=== PATIENT | male | born 1980 | race Caucasian/White ===

== ENCOUNTER 2019-05-08 20:47 | Inpatient (IN) | payer MEDICAID, SELFPAY ==
[2019-05-08] VITALS (12 sets, daily range): BP systolic 134–161; BP diastolic 73–87; PULSE 82–105; RESP 4–23; TEMP 36.9–37; O2SAT 74–98
--- NOTE | 2019-05-08 20:56 | ED.GENADUL_ITS ---
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 Denies chest pain, feveres, recent travel rashes. He states he just feels short of breath at times and also feels generally weak. He is noted on triage to have o2 saturation of 74%, has swollen legs and on lung exam has diffuse wheezing. Will obtain blood work, ekg, give duoneb and steroids and obtain CTA of his chest to eval for PE vs pna ct shows no acute abnormalities and labs show carbon dioxide of 41 and h/h elevated. He is still hypoxic, hd stable. He now has more wheezing in bilateral lung nuno. Given his contnued hypoxia will admit Differential Diagnosis Differential Diagnosis: PE, pna, copd Imaging Data Radiologic Study: Attestation: I personally reviewed and interpreted this imaging study as follows: Imaging: CT Scan Radiologist's impression: IMPRESSION: Unremarkable chest CT. No pulmonary embolism. Lab Data Lab results reviewed: Yes I reviewed the patient's lab results. ECG Data Attestation: I personally reviewed and interpreted this ECG (s) as follows: Prior ECG tracings: not available for review Interpretation: sinus rhythm, rate of 85 pr 112 qtc 409 HPI General Mode of arrival: ambulatory . Date/Time Provider Initiated Documentation: 05/08/19 20:49 . Limitations to Documentation: no limitations . Information obtained by: patient . History of Present Illness 39 year old M presents to the emergency department with the chief complaint of I don't feel well, described as moderate, and it has been constant. No relieving factors improve symptom(s), No exacerbating factors reported . Patient did receive the following treatments prior to arrival, none Related Data Home Medications Medication Instructions Recorded Confirmed ibuprofen 400 mg PO TID tab-cap 10/13/15 05/08/19 acetaminophen [Tylenol] 325 mg PO Q4H PRN tab-cap 09/26/16 05/08/19 Allergies Allergy/AdvReac Type Severity Reaction Status Date / Time No Known Allergies Allergy Unverified 05/08/19 21:26 Review of Systems All systems reviewed & are unremarkable except as noted in HPI and below Constitutional Constitutional: Denies chills and Denies fever(s) Cardiovascular Cardiovascular: Denies chest pain Respiratory Respiratory: Denies cough Gastrointestinal Gastrointestinal: Denies abdominal pain, Denies nausea and Denies vomiting Musculoskeletal Musculoskeletal: Denies joint swelling Allergic/Immunologic Allergic/Immunologic: Denies urticaria [facility] Social History Smoking/Tobacco Use Status: Current every day Tobacco Type: cigarettes Alcohol Intake: current Alcohol Intake frequency: holidays/special occasions only Alcohol type: beer Drug use: Occasionally Substance use type: marijuana Details: last smoked marijuana 2 weeks ago. 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 He did not complete high school. He has 2 daughters who live with their mother; ages 8 and 10. Exam Const General: no acute distress Orientation: alert HENMT Head: normal to inspection Ears: external ears normal General nose exam: external nose normal Mouth: moist mucous membranes Eyes General: appearance normal, both eyes and all related structures Neck Neck: normal visual inspection Resp Effort & Inspection: normal respiratory effort and able to speak in complete sentences Cardio Rate: regular rate Skin General skin exam: no rashes or lesions noted Neuro General: alert and oriented x3 Extrem General: normal to inspection Psych Mental Status: mental status grossly normal
[2019-05-08] MEDS: Albuterol/Ipratropium 3 ML UPD VIAL UPD ×2 (21:00→22:54)
[2019-05-08] MEDS: methylPREDNISolone SUCC 125 MG VIAL IVP (21:10)
[2019-05-08] MEDS: Omnipaque 350 MG/ML 100 ML BTL IJ (21:18)
--- NOTE | 2019-05-08 21:31 | DI.CT_ITS ---
EXAM: CT CHEST PE CTA CLINICAL HISTORY: hypoxia, ?PE. TECHNIQUE: Imaging Protocol: Axial CT angiography was performed with multi-slice acquisition and mu lti-planar and/or 3D reconstructions. CONTRAST MATERIAL: Intravenous: Omnipaque 350 Contrast volume:100 mL contrast route:IV - Oral:No COMPARISON: No exams were available for comparison FINDINGS: Pulmonary Arteries: No evidence of filling defect to suggest pulmonary emboli. Tracheobronchial tree: Patent where visualized. Mediastinum and Marina: No dominant adenopathy or fluid collection. Pulmonary parenchyma: No consolidation or dominant measurable mass. No architectural distortion. Pleura: No effusion or pneumothorax. Heart/Aorta: There is no evidence of thoracic aortic dissection or aneurysm. The heart is not dilate d. No coronary artery calcifications are seen. No evidence of right heart strain. No pericardial eff usion. Upper abdomen: Unremarkable. Bones: Degenerative changes are present. IMPRESSION: No evidence of pulmonary embolism, thoracic aortic dissection or aneurysm. DATA REPOSITORY: All CT scans at this facility are submitted to the National Radiology Data Registry (NRDR) Dose Index Registry (DIR) with the [employer] (ACR). RADIATION OPTIMIZATION: All CT scans at this facility use at least one of these dose optimization te chniques: automated exposure control; mA and/or kV adjustment per patient size (includes targeted exa ms where dose is matched to clinical indication); or iterative reconstruction.
[2019-05-08 21:35] LABS: INR 1.2 (0.9-1.1); PTT Activated 26.1 sec (21.0-31.4); Prothrombin Time 11.6 sec (9.3-11.0)
[2019-05-08 21:39] LABS: Abs Immature Grans 0.03 k/cumm (0.0-0.09); Absolute Basophil Count 0.04 k/cumm (0.0-0.2); Absolute Eosinophil Count 0.16 k/cumm (0.0-0.7); Absolute Lymphocyte Count 1.34 k/cumm (1.2-3.4); Absolute Monocyte Count 0.83 k/cumm (0.11-0.7); Absolute Neutrophil Count 6.33 k/cumm (1.2-6.7); Basophils % 0.5; Eosinophils % 1.8; Immature Grans % 0.3; Lymphocytes % 15.3; Mean Corpuscular Hemoglobin 29.3 pg (27.0-33.0); Mean Corpuscular Volume 94.7 fL (80-95); Mean Platelet Volume 12.4 fL (8.0-11.0); Monocytes % 9.5; Neutrophils % 72.6; Platelet Count 166 x1000/uL (130-400); RBC 6.63 m/cumm (4.50-6.00); RBC Distribution Width 18.7 % (11.8-14.1); White Blood Cell Count 8.73 k/cumm (4.4-10.8)
[2019-05-08 21:43] LABS: ALT 173 U/L (16-63); AST 42 U/L (15-37); Albumin 3.2 g/dL (3.4-5.0); Alkaline Phosphatase 85 U/L (46-116); BUN 13 mg/dL (7-18); Bilirubin, Total 0.6 mg/dL (0.2-1.0); Calcium 8.3 mg/dL (8.5-10.1); Chloride 100 mmol/L (98-107); Glucose 105 mg/dL (74-106); Magnesium 1.9 mg/dL (1.8-2.4); NT-proBNP 263 pg/mL (<300); Potassium 4.4 mmol/L (3.5-5.1); Sodium 142 mmol/L (136-145); Total Protein 6.9 g/dL (6.4-8.2); Troponin I < 0.05 ng/Ml (<0.06)
[2019-05-08 21:44] LABS: CREATININE < 0.05 mg/dL (0.70-1.30)
--- NOTE | 2019-05-08 21:50 | DI.VRAD_ITS ---
PROCEDURE INFORMATION: Exam: CT Angiography Chest With Contrast Exam date and time: 05/08/2019 9:26 PM Age: 39 years old Clinical history: Patient HX: Hypoxia, ? pe. HX - muscular dystrophy per PT TECHNIQUE: Imaging protocol: Computed tomographic angiography of the chest with intravenous contrast. 3D rendering: MIP reconstructed images were created and reviewed. Radiation optimization: All CT scans at this facility use at least one of these dose optimization techniques: automated exposure control; mA and/or kV adjustment per patient size (includes targeted exams where dose is matched to clinical indication); or iterative reconstruction. Contrast material: OMNI 350; Contrast volume: 100 ml; Contrast route: IV; COMPARISON: No relevant prior studies available. FINDINGS: Pulmonary arteries: No pulmonary embolism. Aorta: Unremarkable. No aortic aneurysm. No aortic dissection. Lungs: Punctate calcified nodule in the low left lower lobe consistent with prior granulomatous disease. Pleural space: No pneumothorax. No pleural effusion. Mild left pleural thickening. Heart: Unremarkable. No cardiomegaly. No pericardial effusion. Lymph nodes: Unremarkable. No enlarged lymph nodes. Bones/joints: Unremarkable. No acute fracture. Soft tissues: Unremarkable. IMPRESSION: Unremarkable chest CT. No pulmonary embolism. Dictated and Authenticated by: Vinicio Anderson MD. Ordering:RADHA Garvin MD
[2019-05-08 22:00] LABS: HGB 19.4 g/dL (13.5-17.5)
[2019-05-08 22:03] LABS: HCT 65.2 % (40.0-50.0)
[2019-05-08 22:04] LABS: Mean Corp. HGB Concentration 29.8 g/dL (32.0-36.0)
[2019-05-08] MEDS: Albuterol 2.5 MG/3 ML INH SOLN VIAL (22:05)
[2019-05-08 22:10] LABS: FREE T4 1.02 ng/dL (0.76-1.46)
[2019-05-08 22:23] LABS: Polychromasia Present
[2019-05-08] MEDS: Normal Saline 1,000 ML 1000 ML IV (22:54)
--- NOTE | 2019-05-08 23:04 | W.PM.HP.N ---
Date of service: 05/08/19 Time of Service: 23:05 Assessment and Plan Assessment and plan (1) Exacerbation of asthma: Start date: 05/08/19 Status: Acute Assessment and plan: This is a 39-year-old gentleman who has a history of smoking and increasing dyspnea presented to the ED with bronchospasm and hypoxemia.He is chronically not on respiratory treatment. He has responded to nebulizer treatments but his hypoxemia persist requiring O2 supplementation. The patient will be observed on telemetry with continue oxygen supplementation and further evaluation by respiratory therapy with an ABG to be performed this morning. He will continue nebulizer treatments as needed. If his hypoxemia persist we need to consider positive pressure treatment acutely and long-term for probable sleep apnea. He does need to establish locally with a primary care physician for further work-up of this respiratory pathology with what appears to be chronic respiratory failure with an elevated TCO2. Qualifiers: Asthma persistence: persistent Asthma severity: severe Qualified Code(s): J45.51 - Severe persistent asthma with (acute) exacerbation (2) Hypoxemia: Start date: 05/08/19 Status: Acute Assessment and plan: O2 supplementation with consideration of positive pressure treatment for his hypoxemia which is persisting. He is on observation but may need to be admitted for further evaluation if this persist. There is no evidence of pneumonia or PE by imaging in the ED. Patient does have a history of muscular dystrophy and is need to be further reviewed in the outpatient records with the patient seeing neurology yearly. (3) Tobacco dependence: Status: Chronic Assessment and plan: This will exacerbate the patient's respiratory status and he needs to consider cessation. NicoDerm will be ordered during the hospital stay. 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 This can be done as an outpatient. It also can be done acutely if the patient's cardiovascular status becomes unstable. 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 The patient has very short sleep hours because of his job and never feels rested after sleeping. He presented to the emergency room because of not feeling well for months and was prompted by his to be evaluated. He was found to be severely hypoxic on room air and this did not respond well to nebulizers though he did have audible wheezing upon admission to the ED. He was observed overnight on telemetry with adjustment of oxygen therapy and early in the morning patient had a severe apneic spell witnessed by the nurses and was difficult to awaken with tactile stimuli with severe hypoxemia and his oxygen off during the episode. He did awaken and his pulse oximeter improved on 4 L/min oxygen mask. His telemetry did not reveal any dysrhythmia during the episode. He has been aware for years that he most likely has sleep apnea. Review of Systems Narrative: 13 point review of systems otherwise unrevealing or stable. Patient does have muscle weakness especially over his right side with occasional foot drop noticed on the right as well. 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 He did not complete high school. He has 2 daughters who live with their mother; ages 8 and 10. Meds Home Medications and Allergies Home Medications Medication Instructions Recorded Confirmed Type ibuprofen 400 mg PO TID tab-cap 10/13/15 05/08/19 History acetaminophen [Tylenol] 325 mg PO Q4H PRN tab-cap 09/26/16 05/08/19 History Allergies Allergy/AdvReac Type Severity Reaction Status Date / Time No Known Allergies Allergy Unverified 05/08/19 21:26 Exam Narrative Exam Narrative: General: Patient is morbidly obese, flattened affect with good eye contact but little variation, no acute distress and alert and oriented x3. HEENT: Normocephalic with patient having a full lindsay and normal hair distribution over his scalp. Face is atraumatic with some puffiness but no pitting edema. Eyes normal with pupils equal and reactive to light symmetrically, extraocular movement intact and sclera anicteric. Oropharynx with moist mucosa. Neck: Supple without JVD. Back: Stooped posture with no CVA tenderness. Patient needs assistance to sit up in bed. Lungs: Bronchovesicular sounds diffusely but no focalizing rales or rhonchi. No significant adventitious sounds and no wheezing. Chest: No focal tenderness, breasts are fatty and predominant but symmetrical. No palpable breast tissue. Heart: Regular rate and rhythm with no murmurs gallops appreciated. Abdomen: Obese contour, soft and non-tender to palpation with no palpable hepatosplenomegaly. Bowel sounds positive all quadrants. Genitalia/rectal: Exam deferred. Extremities: No pitting edema, clubbing or cyanosis. Muscle atrophy over the right upper and right lower extremities more than the left with fair range of motion of all joints. Skin: Normal color, warm and dry. Neuro: Decreased motor strength over the right and left lower extreme more than left but overall decrease strength with patient needing assistance to sit up in bed, decreased complaint evaluation officer on the right with slight flexion contracture of the hand. Cranial nerves II through XII are grossly intact. Psych: Depressed mood with flattened affect. Remote and recent memory intact. Results Imaging Imaging Studies: Exam(s) PROCEDURE INFORMATION: Exam: CT Angiography Chest With Contrast Exam date and time: 05/08/2019 9:26 PM Age: 39 years old Clinical history: Patient HX: Hypoxia, ? pe. HX - muscular dystrophy per PT TECHNIQUE: Imaging protocol: Computed tomographic angiography of the chest with intravenous contrast. 3D rendering: MIP reconstructed images were created and reviewed. Radiation optimization: All CT scans at this facility use at least one of these dose optimization techniques: automated exposure control; mA and/or kV adjustment per patient size (includes targeted exams where dose is matched to clinical indication); or iterative reconstruction. Contrast material: OMNI 350; Contrast volume: 100 ml; Contrast route: IV; COMPARISON: No relevant prior studies available. FINDINGS: Pulmonary arteries: No pulmonary embolism. Aorta: Unremarkable. No aortic aneurysm. No aortic dissection. Lungs: Punctate calcified nodule in the low left lower lobe consistent with prior granulomatous disease. Pleural space: No pneumothorax. No pleural effusion. Mild left pleural thickening. Heart: Unremarkable. No cardiomegaly. No pericardial effusion. Lymph nodes: Unremarkable. No enlarged lymph nodes. Bones/joints: Unremarkable. No acute fracture. Soft tissues: Unremarkable. IMPRESSION: Unremarkable chest CT. No pulmonary embolism. Dictated and Authenticated by: Vinicio Anderson MD. Labs Result diagrams: 05/09/19 06:10 05/09/19 06:10 Labs: Laboratory Results - last 24 hr 05/08/19 05/08/19 05/08/19 21:10 21:10 21:10 WBC 8.73 RBC 6.63 H Hgb 19.4 H* Hct 65.2 H* MCV 94.7 MCH 29.3 MCHC 29.8 L RDW 18.7 H Plt Count 166 MPV 12.4 H Immature Gran % 0.3 Neutrophils % 72.6 Lymphocytes % 15.3 Monocytes % 9.5 Eosinophils % 1.8 Basophils % 0.5 Absolute Neutrophils 6.33 Absolute Lymphocytes 1.34 Absolute Monocytes 0.83 H Absolute Eosinophils 0.16 Absolute Basophils 0.04 Differential Comment RBC Morphology See below Polychromasia Present PT 11.6 H INR 1.2 H APTT 26.1 Sodium 142 Potassium 4.4 Chloride 100 Carbon Dioxide 41.0 H Anion Gap 1.0 L BUN 13 Creatinine < 0.05 L Estimated GFR/1.73 m2 >= 60.00 Glucose 105 Calcium 8.3 L Magnesium 1.9 Total Bilirubin 0.6 AST 42 H ALT 173 H Alkaline Phosphatase 85 Troponin I < 0.05 NT-Pro-B Natriuret Pep 263 Total Protein 6.9 Albumin 3.2 L TSH Free T4 05/08/19 21:10 WBC RBC Hgb Hct MCV MCH MCHC RDW Plt Count MPV Immature Gran % Neutrophils % Lymphocytes % Monocytes % Eosinophils % Basophils % Absolute Neutrophils Absolute Lymphocytes Absolute Monocytes Absolute Eosinophils Absolute Basophils Differential Comment RBC Morphology Polychromasia PT INR APTT Sodium Potassium Chloride Carbon Dioxide Anion Gap BUN Creatinine Estimated GFR/1.73 m2 Glucose Calcium Magnesium Total Bilirubin AST ALT Alkaline Phosphatase Troponin I NT-Pro-B Natriuret Pep Total Protein Albumin TSH 5.70 H Free T4 1.02 Last Vital Signs Temp 37.0 C 05/08/19 20:54 Pulse 83 05/08/19 22:54 Resp 18 05/08/19 22:54 BP 134/76 05/08/19 22:30 Pulse Ox 92 L 05/08/19 22:54
[2019-05-09] VITALS (85 sets, daily range): BP systolic 114–156; BP diastolic 60–91; PULSE 67–115; RESP 1–31; TEMP 36.7–37.8; O2SAT 82–100
[2019-05-09] MEDS: Nicotine 21 MG/24 HR PATCH TD ×2 (01:16→16:06)
[2019-05-09] MEDS: Albuterol/Ipratropium 3 ML UPD VIAL UPD ×3 (01:17→12:27)
[2019-05-09 01:31] LABS: HCO3 (Venous) 40 mmol/L (22-28); O2 Sat (Venous) 83 % (70-80); TCO2 (Venous) 34 mmol/L (22-29); pH (Venous) 7.35 (7.32-7.43); pO2 (Venous) 47 mm/Hg (28-44)
[2019-05-09 01:43] LABS: BE (Venous) 14.5 mmol/L (-3-3); pCO2 (Venous) 73 mm/Hg (34-47)
[2019-05-09] MEDS: Normal Saline Flush 10 ML SYR IVP ×3 (06:32→22:11)
[2019-05-09] MEDS: Enoxaparin 40 MG/0.4 ML SYR SC (06:33)
[2019-05-09] MEDS: methylPREDNISolone SUCC 125 MG VIAL IVP (06:59)
[2019-05-09 07:00] LABS: Mean Corpuscular Hemoglobin 29.2 pg (27.0-33.0); Mean Corpuscular Volume 95.1 fL (80-95); Mean Platelet Volume 12.5 fL (8.0-11.0); Platelet Count 160 x1000/uL (130-400); RBC 6.55 m/cumm (4.50-6.00); RBC Distribution Width 18.8 % (11.8-14.1); White Blood Cell Count 8.92 k/cumm (4.4-10.8)
[2019-05-09 07:04] LABS: ALT 172 U/L (16-63); AST 37 U/L (15-37); Albumin 3.2 g/dL (3.4-5.0); Alkaline Phosphatase 75 U/L (46-116); Anion Gap 0.5 mmol/L (3-11); BUN 12 mg/dL (7-18); Bilirubin, Total 0.5 mg/dL (0.2-1.0); CO2 40.5 mmol/L (21.0-32.0); CREATININE 0.81 mg/dL (0.70-1.30); Calcium 8.5 mg/dL (8.5-10.1); Chloride 102 mmol/L (98-107); Glucose 264 mg/dL (74-106); Magnesium 2.1 mg/dL (1.8-2.4); Potassium 4.8 mmol/L (3.5-5.1); Sodium 143 mmol/L (136-145); Total Protein 6.8 g/dL (6.4-8.2)
[2019-05-09 07:30] LABS: HGB 19.1 g/dL (13.5-17.5)
[2019-05-09 07:33] LABS: HCT 63.6 % (40.0-50.0)
[2019-05-09 08:32] LABS: Site Left Radial
[2019-05-09 08:33] LABS: pCO2 105 mmHg (34-47); pO2 75 mmHg (83-108); sO2 89 % (94-98)
[2019-05-09 08:34] LABS: HCO3 41 mmol/L (22-28); tCO2 44 mmol/L (22-29)
--- NOTE | 2019-05-09 09:54 | PHARADMIT ---
Addendum entered by Rosie Jaquez 05/11/19 16:32: Pharmacy Note Subjective PFT, echo and cardiology consult ordered Objective BP-142/100 other VS okay weight-156.1kg(up) h/h-18.7/59.9(up) lactate-3.0(up) Assessment methylprednisolone changed to prednisone one time furosemide dose given Plan trying to organize a trilogy machine to trial overnight possible discharge tomorrow it improving with cardiac monitoring and out pt followup Addendum entered by Serina Cueva 05/10/19 12:44: Pharmacy Note Subjective Improved after bipap overnight Objective VS good, labs oddly not available for viewing, H/H 18.1/57.9, Lactate 2.4 A1c 6.4, FSBS 253, Iron/Ferritin panel is low Most recent blood gas improved Assessment Diabetes consult (new/borderline diagnosis) Novolog scale only at this time IV steroids decreased..making blood sugars elevated Plan watch for IV to oral steroid taper, cardiology consult/echo Micro urine: pending Pt sees for Muscular Dystrophy Original Note: Admission Pharmacy Clinical Review EXACERBATION OF ASTHMA W/HYPOXEMIA Code Status Full Code Current Weight 152 kg Renally Cleared and Narrow Therapeutic Index Meds CrCl~134ml/min QTc Value / Action Taken QTC 409 BP Control, Fever BP 114/71 Afebrile Electrolytes reviewed K+ 4.8 Mag 2.1 DVT Prophylaxis Lovenox 40mg Opiate Usage / Scheduled Bowel Regimen Ordered Plt/SCr for Heparin / Enoxaparin Plt 160 SCr 0.81 INR for Warfarin H/H stable, WBC/Bands H/H 19.1/63.6 WBC 8.92 (IV steroids) Antibiotic appropriateness n/a Cultures and Sensitivities n/a Surgical ABX d/c within 24 hr DM control / Insulin Dosing BG 264 (Novolog scale)....DIET IS NPO Heart Failure (Check EF%) (DAVE's, B-Block, Diuretics) IV to PO Switch steroids Home Meds Reviewed Home Meds Not Ordered Ibuprofen Comments blood gas: PC02 105/PO2 75/O2 Sats 89%/ph 7.2 repeat BG levels later ? Pulmonary Hypertension, will need daytime oxygen, Sleep Apnea Chest CT: negative, no PE, normal Checking Iron levels for abnormal H/H Possible transfer to ICU Hx of Muscular Dystrophy
--- NOTE | 2019-05-09 10:03 | W.PM.PROGNOT ---
Date of Service Date of service: 05/09/19 Time of Service: 10:03 Assessment and Plan Assessment and plan (1) Acute on chronic respiratory failure with hypoxia and hypercapnia: Status: Acute Assessment and plan: This is likely multifactorial. Based on patient's appearance/apneic behavior, sleep apnea and OHS are certainly on differential, as could be contribution of his muscular dystrophy (between 1 and 10 % of people with his type of muscular dystrophy have restrictive lung disease and require positive pressure support overnight). He is a smoker, and underlying obstructive disease such as COPD/acute bronchitis could also be happening. pH is worse on the ABG this morning than VBG overnight. Transfer to ICU, repeating ABG now. Will adjust BiPAP settings accordingly - but low threshold to intubate if ABG is worse. Discussed with girlfriend at bedside that parents should be informed of him being in the hospital - he might end up getting intubated. Continue IV steroids, nebs. Check UDS. (2) Acute respiratory acidosis: Status: Acute Assessment and plan: as above (3) CO2 narcosis: Status: Acute Assessment and plan: As above (4) Secondary polycythemia: Status: Chronic Assessment and plan: Likely due to smoking, unaddress chronic hypoxia. Pulmonary hypertension is something that I would expect at this point. Will check iron studies to ensure no hemochromatosis, but will also check echo. (5) Fascioscapulohumeral muscular dystrophy: Status: Chronic Assessment and plan: As above - up to 10% of patients do end up having restrictive lung disease. Otherwise, it had been stable, as per Dr Lam's note earlier this year. Will eventually need PFT's. (6) Steroid-induced hyperglycemia: Status: Acute Assessment and plan: Check A1C. Cover with SSI. (7) Obesity, morbid, BMI 40.0-49.9: Status: Chronic Assessment and plan: Very high clinical suspicion for JOHANNE/OHS. Would benefit from weight loss. (8) Tobacco dependence: Status: Acute Assessment and plan: Provide nicotine replacement (9) Subclinical hypothyroidism: Status: Acute Assessment and plan: Will need outpatient follow up - no inidication for initiation of treatment at this time. (10) DVT prophylaxis: Status: Acute Assessment and plan: Lovenox SC (11) Discharge planning issues: Status: Acute Assessment and plan: Transfer to ICU Total Critical Care Time 45 minutes Subjective Subjective Interval history since last seen: I took over care for Mr Priya from Dr Franks. Patient's ABG results revealed respiratory acidosis with pH of 7.20, pCO2 of 105, pO2 of 89% on 4L of O2 by oxymask. He was immediately placed on BiPAP once those results were known and fell asleep quickly. Patient seen an examined. He is deeply asleep, arousable. Even while on BiPAP he is having noticeable apneic episodes. He is not able to cooperate with review of systems due to his mental status. Per girlfriend, he had just woken up a little earlier and tried to take the BiPAP mask off. He also had been verbalizing that he just wants to go home to his girlfriend. Exam Narrative Exam Narrative: General: Obese male, deeply asleep on BiPAP, having apneic episodes HEENT: Eyes closed, MMM Heart: RRR, mildly tachycardic, no m/r/g Lungs: Diminished breath sounds B Abdomen: soft, obese Extremities: no e/c/c BLE's Objective Objective Clinical Data: Abnormal lab results 05/08/19 05/08/19 05/08/19 Range/Units 21:10 21:10 21:10 RBC 6.63 H (4.50-6.00) m/cumm Hgb 19.4 H* (13.5-17.5) g/dL Hct 65.2 H* (40.0-50.0) % MCV (80-95) fL MCHC 29.8 L (32.0-36.0) g/dL RDW 18.7 H (11.8-14.1) % MPV 12.4 H (8.0-11.0) fL Absolute Monocytes 0.83 H (0.11-0.7) k/cumm PT 11.6 H (9.3-11.0) sec INR 1.2 H (0.9-1.1) pCO2 (34-47) mmHg pO2 (83-108) mmHg O2 Saturation (94-98) % ABG pH (7.35-7.45) ABG HCO3 (22-28) mmol/L ABG Total CO2 (22-29) mmol/L ABG Base Excess (-3-3) mmol/L VBG pCO2 (34-47) mm/Hg VBG pO2 (28-44) mm/Hg VBG HCO3 (22-28) mmol/L VBG Total CO2 (22-29) mmol/L VBG O2 Saturation (70-80) % VBG Base Excess (-3-3) mmol/L Carbon Dioxide 41.0 H (21.0-32.0) mmol/L Anion Gap 1.0 L (3-11) mmol/L Creatinine < 0.05 L (0.70-1.30) mg/dL Glucose (74-106) mg/dL Calcium 8.3 L (8.5-10.1) mg/dL AST 42 H (15-37) U/L ALT 173 H (16-63) U/L Albumin 3.2 L (3.4-5.0) g/dL TSH (0.36-3.74) uIU/mL 05/08/19 05/09/19 05/09/19 Range/Units 21:10 01:20 06:10 RBC (4.50-6.00) m/cumm Hgb (13.5-17.5) g/dL Hct (40.0-50.0) % MCV (80-95) fL MCHC (32.0-36.0) g/dL RDW (11.8-14.1) % MPV (8.0-11.0) fL Absolute Monocytes (0.11-0.7) k/cumm PT (9.3-11.0) sec INR (0.9-1.1) pCO2 (34-47) mmHg pO2 (83-108) mmHg O2 Saturation (94-98) % ABG pH (7.35-7.45) ABG HCO3 (22-28) mmol/L ABG Total CO2 (22-29) mmol/L ABG Base Excess (-3-3) mmol/L VBG pCO2 73 H (34-47) mm/Hg VBG pO2 47 H (28-44) mm/Hg VBG HCO3 40 H (22-28) mmol/L VBG Total CO2 34 H (22-29) mmol/L VBG O2 Saturation 83 H (70-80) % VBG Base Excess 14.5 H (-3-3) mmol/L Carbon Dioxide 40.5 H (21.0-32.0) mmol/L Anion Gap 0.5 L (3-11) mmol/L Creatinine (0.70-1.30) mg/dL Glucose 264 H D (74-106) mg/dL Calcium (8.5-10.1) mg/dL AST (15-37) U/L ALT 172 H (16-63) U/L Albumin 3.2 L (3.4-5.0) g/dL TSH 5.70 H (0.36-3.74) uIU/mL 05/09/19 05/09/19 Range/Units 06:10 08:15 RBC 6.55 H (4.50-6.00) m/cumm Hgb 19.1 H* (13.5-17.5) g/dL Hct 63.6 H* (40.0-50.0) % MCV 95.1 H (80-95) fL MCHC 30.0 L (32.0-36.0) g/dL RDW 18.8 H (11.8-14.1) % MPV 12.5 H (8.0-11.0) fL Absolute Monocytes (0.11-0.7) k/cumm PT (9.3-11.0) sec INR (0.9-1.1) pCO2 105 H* (34-47) mmHg pO2 75 L (83-108) mmHg O2 Saturation 89 L (94-98) % ABG pH 7.20 L (7.35-7.45) ABG HCO3 41 H (22-28) mmol/L ABG Total CO2 44 H (22-29) mmol/L ABG Base Excess 13.0 H (-3-3) mmol/L VBG pCO2 (34-47) mm/Hg VBG pO2 (28-44) mm/Hg VBG HCO3 (22-28) mmol/L VBG Total CO2 (22-29) mmol/L VBG O2 Saturation (70-80) % VBG Base Excess (-3-3) mmol/L Carbon Dioxide (21.0-32.0) mmol/L Anion Gap (3-11) mmol/L Creatinine (0.70-1.30) mg/dL Glucose (74-106) mg/dL Calcium (8.5-10.1) mg/dL AST (15-37) U/L ALT (16-63) U/L Albumin (3.4-5.0) g/dL TSH (0.36-3.74) uIU/mL Vital Signs Temperature 37.1 C 05/09/19 07:00 Temperature Source Tympanic 05/09/19 07:00 Pulse 86 05/09/19 09:12 Pulse Rhythm Regular 05/09/19 00:04 Respiratory Rate 10 L 05/09/19 09:12 Respiratory Effort 05/09/19 00:04 Respiratory Depth Normal 05/09/19 00:04 Respiratory Pattern Normal 05/09/19 00:04 Blood Pressure 114/71 05/09/19 07:00 Blood Pressure Position Sitting 05/08/19 20:54 Pulse Oximetry 90 L 05/09/19 09:12 Oxygen Delivery Method OxyMask 05/09/19 07:00 Oxygen Flow Rate 4 05/09/19 07:00 Fraction of Inspired Oxygen (FIO2) 40 05/09/19 09:12 Pain Level 0 05/09/19 07:00 Comment 05/09/19 06:35 Intake & Output 05/08/19 05/08/19 05/09/19 11:59 23:59 11:59 Intake Total 1000 / 1000 1200 / 1200 Balance 1000 / 1000 1200 / 1200 Weight 136.078 kg 152 kg Intake: IV 1000 / 1000 Oral 1200 / 1200 Other: Urine Color Yellow Urine Appearance Clear Comment Pt used the toilet to pick Voiding Methods Toilet Laboratory Results WBC 8.92 k/cumm (4.4-10.8) 05/09/19 06:10 RBC 6.55 m/cumm (4.50-6.00) H 05/09/19 06:10 Hgb 19.1 g/dL (13.5-17.5) H* 05/09/19 06:10 Hct 63.6 % (40.0-50.0) H* 05/09/19 06:10 MCV 95.1 fL (80-95) H 05/09/19 06:10 MCH 29.2 pg (27.0-33.0) 05/09/19 06:10 MCHC 30.0 g/dL (32.0-36.0) L 05/09/19 06:10 RDW 18.8 % (11.8-14.1) H 05/09/19 06:10 Plt Count 160 x1000/uL (130-400) 05/09/19 06:10 MPV 12.5 fL (8.0-11.0) H 05/09/19 06:10 Immature Gran % 0.3 05/08/19 21:10 Neutrophils % 72.6 05/08/19 21:10 Lymphocytes % 15.3 05/08/19 21:10 Monocytes % 9.5 05/08/19 21:10 Eosinophils % 1.8 05/08/19 21:10 Basophils % 0.5 05/08/19 21:10 Absolute Neutrophils 6.33 k/cumm (1.2-6.7) 05/08/19 21:10 Absolute Lymphocytes 1.34 k/cumm (1.2-3.4) 05/08/19 21:10 Absolute Monocytes 0.83 k/cumm (0.11-0.7) H 05/08/19 21:10 Absolute Eosinophils 0.16 k/cumm (0.0-0.7) 05/08/19 21:10 Absolute Basophils 0.04 k/cumm (0.0-0.2) 05/08/19 21:10 Differential Comment 05/08/19 21:10 RBC Morphology See below 05/08/19 21:10 Polychromasia Present 05/08/19 21:10 PT 11.6 sec (9.3-11.0) H 05/08/19 21:10 INR 1.2 (0.9-1.1) H 05/08/19 21:10 APTT 26.1 sec (21.0-31.4) 05/08/19 21:10 Sample Site Left radial 05/09/19 08:15 pCO2 105 mmHg (34-47) H* 05/09/19 08:15 pO2 75 mmHg (83-108) L 05/09/19 08:15 O2 Saturation 89 % (94-98) L 05/09/19 08:15 ABG pH 7.20 (7.35-7.45) L 05/09/19 08:15 ABG HCO3 41 mmol/L (22-28) H 05/09/19 08:15 ABG Total CO2 44 mmol/L (22-29) H 05/09/19 08:15 ABG Base Excess 13.0 mmol/L (-3-3) H 05/09/19 08:15 VBG pH 7.35 (7.32-7.43) 05/09/19 01:20 VBG pCO2 73 mm/Hg (34-47) H 05/09/19 01:20 VBG pO2 47 mm/Hg (28-44) H 05/09/19 01:20 VBG HCO3 40 mmol/L (22-28) H 05/09/19 01:20 VBG Total CO2 34 mmol/L (22-29) H 05/09/19 01:20 VBG O2 Saturation 83 % (70-80) H 05/09/19 01:20 VBG Base Excess 14.5 mmol/L (-3-3) H 05/09/19 01:20 Oxygen Liter Flow 4 lpm oxy mask L 05/09/19 08:15 Sodium 143 mmol/L (136-145) 05/09/19 06:10 Potassium 4.8 mmol/L (3.5-5.1) 05/09/19 06:10 Chloride 102 mmol/L (98-107) 05/09/19 06:10 Carbon Dioxide 40.5 mmol/L (21.0-32.0) H 05/09/19 06:10 Anion Gap 0.5 mmol/L (3-11) L 05/09/19 06:10 BUN 12 mg/dL (7-18) 05/09/19 06:10 Creatinine 0.81 mg/dL (0.70-1.30) D 05/09/19 06:10 Estimated GFR/1.73 m2 >= 60.00 (mL/min/1.73m2) 05/09/19 06:10 Glucose 264 mg/dL (74-106) H D 05/09/19 06:10 Calcium 8.5 mg/dL (8.5-10.1) 05/09/19 06:10 Magnesium 2.1 mg/dL (1.8-2.4) 05/09/19 06:10 Total Bilirubin 0.5 mg/dL (0.2-1.0) 05/09/19 06:10 AST 37 U/L (15-37) 05/09/19 06:10 ALT 172 U/L (16-63) H 05/09/19 06:10 Alkaline Phosphatase 75 U/L (46-116) 05/09/19 06:10 Troponin I < 0.05 ng/Ml (<0.06) 05/08/19 21:10 NT-Pro-B Natriuret Pep 263 pg/mL (<300) 05/08/19 21:10 Total Protein 6.8 g/dL (6.4-8.2) 05/09/19 06:10 Albumin 3.2 g/dL (3.4-5.0) L 05/09/19 06:10 TSH 5.70 uIU/mL (0.36-3.74) H 05/08/19 21:10 Free T4 1.02 ng/dL (0.76-1.46) 05/08/19 21:10
[2019-05-09 10:29] LABS: FIO2 45% %; Site Left Radial; pH 7.24 (7.35-7.45)
[2019-05-09 10:30] LABS: HCO3 43 mmol/L (22-28); pCO2 99 mmHg (34-47); pO2 63 mmHg (83-108); sO2 85 % (94-98); tCO2 46 mmol/L (22-29)
--- NOTE | 2019-05-09 10:33 | INITIAL_ITS ---
- If Service Date Differs Date of service: 05/09/19 Time of Service: 10:33 Care Management Initial Assess REASON FOR HOSPITALIZATION:: Exacerbation asthma with hypoxemia. PAST MEDICAL HISTORY/PAST SURGICAL HISTORY:: Medical History: Fascioscapulohumeral muscular dystrophy (acute 10/25/15), subclinical hypothyroidism (acute 05/09/19), DVT prophylaxis (acute 05/09/19), obesity, steroid-induced hyperglycemia (acute 05/09/19), CO2 narcosis (acute 05/09/19), polycythemia secondary to smoking, tobacco dependence, hypoxemia (acute 05/09/19), and exacerbation of asthma (acute 05/09/19). No surgical history of record. PREVIOUS FUNCTIONAL STATUS/SOCIAL/FAMILY SUPPORTS:: Dante lives in his own home in [place] with his girlfriend, Kenzie. Both he and Kenzie each have two children. Dante's daughters live with their mother but spend weekends and school vacations with him. 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 During his down time, Dante enjoys hunting, fishing and spending time at the family [employer] Dante is independent at baseline. He names his parents, Kenzie, her parents, and several friends as supports. CURRENT FUNCTIONAL STATUS:: Dante is lying in bed when CM comes to meet with him. He is on oxygen. His girlfriend, Kenzie, is present in the room. Dante openly shares that he has neglected his health for many years and has instead been focused on working and supporting his family. He states with tears in his eyes I don't want to at 39. I want to live long enough to see my grandkids. He goes on to say that he's known for a while that he needs to take better care of himself, but has put it off until now. ADVANCE DIRECTIVES:: None on file. Has patient been provided with information about the portal?: No Did the patient sign up for the portal?: No CODE STATUS:: Full Code INSURANCE COVERAGE / FINANCIAL ISSUES:: Medicaid. CURRENT HOME/COMMUNITY SERVICES/EQUIPMENT:: None. PRIMARY CARE PHYSICIAN:: TARYN Whitley ([facility]) POTENTIAL DISCHARGE NEEDS:: Follow up with PCP and discharge plan of care. PATIENT/FAMILY EDUCATION NEEDS:: Review discharge plan, limitations, follow up plan, including Ask Me Three and self-management. ANTICIPATED BARRIERS TO DISCHARGE:: None. TRANSPORTATION:: Dante's girlfriend, Kenzie, will transport him home via private vehicle when ready. PLAN:: Dante will be discharged home when medically cleared by provider. Patient is currently on Bipap. Anticipate need for additional respiratory support at time of discharge. CM will continue to monitor for needs.
--- NOTE | 2019-05-09 10:43 | NUR.NOTE ---
Nursing Note: Patient s ABG was critical with co2 105 and ph 7.2 patient was started on bi pap pressure 5/20 fio2 of 45. patient was having periods of apnea one was a 20 second pause. patient was ordered to go to the ICU. report barbraen to EDUARDO Harper at 945. transfer done at 10
[2019-05-09 11:14] LABS: Lactate 2.1 mmol/L (0.6-1.4)
[2019-05-09 11:15] LABS: Bilirubin Negative (Negative); Blood Trace-intact (Negative); Clarity Clear (Clear); Glucose 100 mg/dL (Negative); Ketones Negative (Negative); Leukocyte Esterase Negative (Negative); Nitrite Negative (Negative); Specific Gravity 1.025 (1.005-1.025); Urobilinogen 0.2 EU/dL (Up TO 0.2)
[2019-05-09 11:25] LABS: Bacteria Few HPF (Negative); C & S Indicated? Yes; Casts Negative LPF (Negative); Crystals Negative HPF (Negative); Epithelial Cells Negative HPF (Negative); Mucus Moderate (Negative)
[2019-05-09] MEDS: Insulin Aspart 300 UNITS/3 ML PEN SC ×2 (11:38→22:13)
[2019-05-09 11:47] LABS: Procalcitonin 0.1 ng/mL
[2019-05-09 11:48] LABS: HCO3 37 mmol/L (22-28); pCO2 46 mmHg (34-47); pH 7.51 (7.35-7.45); pO2 97 mmHg (83-108); sO2 98 % (94-98); tCO2 30 mmol/L (22-29)
[2019-05-09] MEDS: Pantoprazole 40 MG VIAL IVP (11:48)
[2019-05-09 11:51] LABS: BE 13.6 mmol/L (-3-3); Site Right Radial
[2019-05-09 11:52] LABS: FIO2 40% %
[2019-05-09 14:43] LABS: *AMPHETAMINES SCREEN URINE Negative (Negative); *BARBITURATES SCREEN URINE Negative (Negative); *BENZODIAZEPINES SCREEN URINE Negative (Negative); Cannabinoids THC Negative (Negative); Cocaine Screen,Urine Negative (Negative); METHADONE URINE SCREEN Negative (Negative); OPIATES URINE SCREEN Negative (Negative)
[2019-05-09 14:45] LABS: Tricyclic Antidepressants Negative (Negative)
[2019-05-09] MEDS: methylPREDNISolone SUCC 125 MG VIAL 80 MG IVP ×2 (15:50→22:11)
[2019-05-09 15:58] LABS: Lactate 2.8 mmol/L (0.6-1.4)
[2019-05-09 17:49] LABS: Hemoglobin A1C 6.4 % (4.5-6.2)
[2019-05-09] MEDS: Albuterol 2.5 MG/3 ML INH SOLN VIAL UPD (20:23)
[2019-05-10] VITALS (122 sets, daily range): BP systolic 121–154; BP diastolic 65–95; PULSE 68–124; RESP 1–31; TEMP 36.6–37.5; O2SAT 83–97
[2019-05-10] MEDS: methylPREDNISolone SUCC 125 MG VIAL 80 MG IVP (06:29)
[2019-05-10] MEDS: Normal Saline Flush 10 ML SYR IVP ×2 (06:29→18:17)
[2019-05-10] MEDS: Enoxaparin 40 MG/0.4 ML SYR SC (06:30)
[2019-05-10] MEDS: Albuterol/Ipratropium 3 ML UPD VIAL UPD ×3 (06:30→19:15)
[2019-05-10 06:37] LABS: Abs Immature Grans 0.01 k/cumm (0.0-0.09); Absolute Lymphocyte Count 0.25 k/cumm (1.2-3.4); Absolute Monocyte Count 0.27 k/cumm (0.11-0.7); Absolute Neutrophil Count 9.27 k/cumm (1.2-6.7); Immature Grans % 0.1; Lymphocytes % 2.6; Mean Corp. HGB Concentration 31.3 g/dL (32.0-36.0); Mean Corpuscular Hemoglobin 29.1 pg (27.0-33.0); Mean Corpuscular Volume 92.9 fL (80-95); Mean Platelet Volume 12.3 fL (8.0-11.0); Monocytes % 2.8; Neutrophils % 94.5; Platelet Count 145 x1000/uL (130-400); RBC 6.23 m/cumm (4.50-6.00); RBC Distribution Width 17.4 % (11.8-14.1)
[2019-05-10 07:00] LABS: HCT 57.9 % (40.0-50.0)
[2019-05-10 07:01] LABS: HGB 18.1 g/dL (13.5-17.5)
[2019-05-10 07:59] LABS: Calculated LDL 75 mg/dL; Cholesterol 111 mg/dL (<200); Ferritin 17 ng/mL (26-388); HDL Cholesterol 26 mg/dL (40-60); Triglyceride 54 mg/dL (<150)
[2019-05-10] MEDS: Insulin Aspart 300 UNITS/3 ML PEN SC ×4 (08:11→21:44)
[2019-05-10 08:21] LABS: Iron 16 ug/dL (65-175); Total Iron Binding Capacity 394 ug/dL (250-450); Transferrin Sat 4 % (20-55)
--- NOTE | 2019-05-10 08:21 | PGE_ITS ---
Date of Service Date of service: 05/10/19 Time of Service: 08:21 Assessment and Plan Assessment and plan (1) Acute on chronic respiratory failure with hypoxia and hypercapnia: Status: Acute Assessment and plan: This is likely multifactorial. Sleep apnea and OHS are certainly on differential, but muscular dystrophy can result in hypoventilation as well (between 1 and 10 % of people with his type of muscular dystrophy have restrictive lung disease and require positive pressure support overnight). He is a smoker, and underlying obstructive disease such as COPD/acute bronchitis could also be happening, but this is clinically better. Doing much better after BiPAP therapy yesterday and overnight. Wean steroids. Will attempt to qualify patient for BiPAP vs trilogy. Keep in the ICU (2) V-tach: Status: Acute Assessment and plan: While awake. ?Cardiomyopathy/cardiac conduction abnormalities related to muscular dystrophy. Obtain cardiology consult. Obtain echo. (3) Acute respiratory acidosis: Status: Resolved Assessment and plan: as above (4) CO2 narcosis: Status: Resolved Assessment and plan: As above (5) Secondary polycythemia: Status: Chronic Assessment and plan: Likely due to smoking and unaddressed chronic hypoxia. Pulmonary hypertension is something that I would expect at this point. For echo tomorrow. Evidence of iron deficiency on bloodwork (no hemochromatosis) - but I am worried about boosting erythrocytosis with supplementation of iron. (6) Fascioscapulohumeral muscular dystrophy: Status: Chronic Assessment and plan: As above - up to 10% of patients do end up having restrictive lung disease. Otherwise, it had been stable, as per Dr Lam's note earlier this year. Concern for cardiac conduction issues. For echo/cardiology consult pending. Will need PFT's. (7) Steroid-induced hyperglycemia: Status: Acute Assessment and plan: Check A1C. Cover with SSI. (8) Obesity, morbid, BMI 40.0-49.9: Status: Chronic Assessment and plan: Very high clinical suspicion for JOHANNE/OHS. Would benefit from weight loss. (9) Prediabetes: Status: Acute Assessment and plan: extension educator consulted. I think metformin as well as lifestyle modification would be excellent in this patient on discharge. He is motivated. (10) Tobacco dependence: Status: Chronic Assessment and plan: Provide nicotine replacement. Advised to quit smoking. (11) Subclinical hypothyroidism: Status: Acute Assessment and plan: Will need outpatient follow up - no inidication for initiation of treatment at this time. (12) DVT prophylaxis: Status: Acute Assessment and plan: Lovenox SC (13) Discharge planning issues: Status: Acute Assessment and plan: Keep in ICU Full code Subjective Subjective Interval history since last seen: Spent the night on BiPAP, took it off at around 4:30 am. Had an episode of 28 beats of what looks like polymorphic wide complex tachycardia (I think this is Vtach) shortly after while he was awake - he felt fluttering in his chest. He says this happens to him at home too, sometimes once a week, sometimes once a month, but this is not a new feeling for him. Denies dizziness, chest pain, breathing is better. Denies n/v. Very clear thinking this morning. Requests a shower. BG this am 171. Expresses being motivated about making life style changes. Exam Narrative Exam Narrative: General: Obese male wide awake, walking around ICU on room air, A&Ox3, possible mild increased work of breathing HEENT: EOMI, MMM Heart: RRR, no m/r/g Lungs: better aeration B; very quiet rhonchi heard. Abdomen: soft, obese Extremities: no e/c/c BLE's Objective Objective Clinical Data: Abnormal lab results 05/09/19 05/09/19 05/09/19 Range/Units 06:37 08:15 10:15 RBC (4.50-6.00) m/cumm Hgb (13.5-17.5) g/dL Hct (40.0-50.0) % MCHC (32.0-36.0) g/dL RDW (11.8-14.1) % MPV (8.0-11.0) fL Absolute Neutrophils (1.2-6.7) k/cumm Absolute Lymphocytes (1.2-3.4) k/cumm pCO2 105 H* 99 H* (34-47) mmHg pO2 75 L 63 L (83-108) mmHg O2 Saturation 89 L 85 L (94-98) % ABG pH 7.20 L 7.24 L (7.35-7.45) ABG HCO3 41 H 43 H (22-28) mmol/L ABG Total CO2 44 H 46 H (22-29) mmol/L ABG Base Excess 13.0 H 15.0 H (-3-3) mmol/L Hemoglobin A1c 6.4 H (4.5-6.2) % Lactate (0.6-1.4) mmol/L Ferritin (26-388) ng/mL HDL Cholesterol (40-60) mg/dL Urine Blood (Negative) Urine RBC (0-2) [facility] 05/09/19 05/09/19 05/09/19 Range/Units 10:20 11:30 15:48 RBC (4.50-6.00) m/cumm Hgb (13.5-17.5) g/dL Hct (40.0-50.0) % MCHC (32.0-36.0) g/dL RDW (11.8-14.1) % MPV (8.0-11.0) fL Absolute Neutrophils (1.2-6.7) k/cumm Absolute Lymphocytes (1.2-3.4) k/cumm pCO2 (34-47) mmHg pO2 (83-108) mmHg O2 Saturation (94-98) % ABG pH 7.51 H (7.35-7.45) ABG HCO3 37 H (22-28) mmol/L ABG Total CO2 30 H (22-29) mmol/L ABG Base Excess 13.6 H (-3-3) mmol/L Hemoglobin A1c (4.5-6.2) % Lactate 2.1 H* 2.8 H* (0.6-1.4) mmol/L Ferritin (26-388) ng/mL HDL Cholesterol (40-60) mg/dL Urine Blood (Negative) Urine RBC (0-2) [facility] 05/09/19 05/10/19 05/10/19 Range/Units Unknown 06:00 06:00 RBC 6.23 H (4.50-6.00) m/cumm Hgb 18.1 H (13.5-17.5) g/dL Hct 57.9 H* (40.0-50.0) % MCHC 31.3 L (32.0-36.0) g/dL RDW 17.4 H (11.8-14.1) % MPV 12.3 H (8.0-11.0) fL Absolute Neutrophils 9.27 H (1.2-6.7) k/cumm Absolute Lymphocytes 0.25 L (1.2-3.4) k/cumm pCO2 (34-47) mmHg pO2 (83-108) mmHg O2 Saturation (94-98) % ABG pH (7.35-7.45) ABG HCO3 (22-28) mmol/L ABG Total CO2 (22-29) mmol/L ABG Base Excess (-3-3) mmol/L Hemoglobin A1c (4.5-6.2) % Lactate (0.6-1.4) mmol/L Ferritin 17 L (26-388) ng/mL HDL Cholesterol 26 L (40-60) mg/dL Urine Blood Trace-intact H (Negative) Urine RBC 3-5 H (0-2) HPF Vital Signs Temperature 37.5 C 05/10/19 04:10 Temperature Source Temporal Artery Scan 05/10/19 04:10 Pulse 70 05/10/19 06:01 Pulse Rhythm Regular 05/09/19 07:30 Pulse 85 05/10/19 06:01 Respiratory Rate 21 05/10/19 06:01 Respiratory Effort 05/10/19 04:10 Respiratory Depth Shallow 05/10/19 04:10 Respiratory Pattern Normal 05/10/19 04:10 Blood Pressure 154/82 H 05/10/19 06:01 Blood Pressure Mean 96 05/10/19 06:01 Blood Pressure Position Sitting 05/10/19 04:10 Pulse Oximetry 89 L 05/10/19 06:01 Oxygen Delivery Method Nasal Cannula 05/10/19 05:20 Oxygen Flow Rate 0.5 05/10/19 05:20 Fraction of Inspired Oxygen (FIO2) 23 05/10/19 03:05 Pain Level 0 05/10/19 04:10 Comment 05/09/19 06:35 Intake & Output 05/09/19 05/09/19 05/10/19 11:59 23:59 11:59 Intake Total 1200 / 1500 300 / 1500 200 / 200 Output Total 450 / 2400 1950 / 2400 500 / 500 Balance 750 / -900 -1650 / -900 -300 / -300 Weight 152 kg 153.6 kg Intake: Oral 1200 / 1500 300 / 1500 200 / 200 Output: Urine 450 / 2400 1950 / 2400 500 / 500 Other: Urine Color Dark Stephanie Yellow Dark Stephanie Urine Appearance Clear Clear Clear Comment Pt used the toilet to pick [place] draining clear yellow. [place] draining clear yellow. Stool Characteristics Formed Voiding Methods Toilet Laboratory Results WBC 9.80 k/cumm (4.4-10.8) 05/10/19 06:00 RBC 6.23 m/cumm (4.50-6.00) H 05/10/19 06:00 Hgb 18.1 g/dL (13.5-17.5) H 05/10/19 06:00 Hct 57.9 % (40.0-50.0) H* 05/10/19 06:00 MCV 92.9 fL (80-95) 05/10/19 06:00 MCH 29.1 pg (27.0-33.0) 05/10/19 06:00 MCHC 31.3 g/dL (32.0-36.0) L 05/10/19 06:00 RDW 17.4 % (11.8-14.1) H 05/10/19 06:00 Plt Count 145 x1000/uL (130-400) 05/10/19 06:00 MPV 12.3 fL (8.0-11.0) H 05/10/19 06:00 Immature Gran % 0.1 05/10/19 06:00 Neutrophils % 94.5 05/10/19 06:00 Band Neutrophils % Division Chief 05/10/19 06:00 Lymphocytes % 2.6 05/10/19 06:00 Atypical Lymphs % Division Chief 05/10/19 06:00 Monocytes % 2.8 05/10/19 06:00 Eosinophils % 0.0 05/10/19 06:00 Basophils % 0.0 05/10/19 06:00 Metamyelocytes % Division Chief 05/10/19 06:00 Myelocytes % Division Chief 05/10/19 06:00 Promyelocytes % Division Chief 05/10/19 06:00 Absolute Neutrophils 9.27 k/cumm (1.2-6.7) H 05/10/19 06:00 Absolute Lymphocytes 0.25 k/cumm (1.2-3.4) L 05/10/19 06:00 Absolute Monocytes 0.27 k/cumm (0.11-0.7) 05/10/19 06:00 Absolute Eosinophils 0.00 k/cumm (0.0-0.7) 05/10/19 06:00 Absolute Basophils 0.00 k/cumm (0.0-0.2) 05/10/19 06:00 Nucleated RBCs Division Chief 05/10/19 06:00 Differential Comment Division Chief 05/10/19 06:00 Other Cell Type Division Chief 05/10/19 06:00 RBC Morphology Division Chief 05/10/19 06:00 Polychromasia Division Chief 05/10/19 06:00 Hypochromasia Division Chief 05/10/19 06:00 Poikilocytosis Division Chief 05/10/19 06:00 Basophilic Stippling Division Chief 05/10/19 06:00 Anisocytosis Division Chief 05/10/19 06:00 Microcytosis Division Chief 05/10/19 06:00 Macrocytosis Division Chief 05/10/19 06:00 Spherocytes Division Chief 05/10/19 06:00 Target Cells Division Chief 05/10/19 06:00 Tear Drop Cells Division Chief 05/10/19 06:00 Ovalocytes Division Chief 05/10/19 06:00 Stomatocytes Division Chief 05/10/19 06:00 [place] Bodies Division Chief 05/10/19 06:00 Good Cells Division Chief 05/10/19 06:00 Acanthocytes (Spur) Division Chief 05/10/19 06:00 Schistocytes Division Chief 05/10/19 06:00 PT 11.6 sec (9.3-11.0) H 05/08/19 21:10 INR 1.2 (0.9-1.1) H 05/08/19 21:10 APTT 26.1 sec (21.0-31.4) 05/08/19 21:10 Sample Site Right radial 05/09/19 11:30 pCO2 46 mmHg (34-47) 05/09/19 11:30 pO2 97 mmHg (83-108) 05/09/19 11:30 O2 Saturation 98 % (94-98) 05/09/19 11:30 ABG pH 7.51 (7.35-7.45) H 05/09/19 11:30 ABG HCO3 37 mmol/L (22-28) H 05/09/19 11:30 ABG Total CO2 30 mmol/L (22-29) H 05/09/19 11:30 ABG Base Excess 13.6 mmol/L (-3-3) H 05/09/19 11:30 VBG pH 7.35 (7.32-7.43) 05/09/19 01:20 VBG pCO2 73 mm/Hg (34-47) H 05/09/19 01:20 VBG pO2 47 mm/Hg (28-44) H 05/09/19 01:20 VBG HCO3 40 mmol/L (22-28) H 05/09/19 01:20 VBG Total CO2 34 mmol/L (22-29) H 05/09/19 01:20 VBG O2 Saturation 83 % (70-80) H 05/09/19 01:20 VBG Base Excess 14.5 mmol/L (-3-3) H 05/09/19 01:20 Oxygen Liter Flow Bipap 30/5 L 05/09/19 11:30 FiO2 40% % 05/09/19 11:30 Sodium mmol/L (136-145) 05/10/19 06:00 Potassium mmol/L (3.5-5.1) 05/10/19 06:00 Chloride mmol/L (98-107) 05/10/19 06:00 Carbon Dioxide mmol/L (21.0-32.0) 05/10/19 06:00 Anion Gap mmol/L (3-11) 05/10/19 06:00 BUN mg/dL (7-18) 05/10/19 06:00 Creatinine mg/dL (0.70-1.30) 05/10/19 06:00 Estimated GFR/1.73 m2 (mL/min/1.73m2) 05/10/19 06:00 Glucose mg/dL (74-106) 05/10/19 06:00 Hemoglobin A1c 6.4 % (4.5-6.2) H 05/09/19 06:37 Lactate 2.8 mmol/L (0.6-1.4) H* 05/09/19 15:48 Calcium mg/dL (8.5-10.1) 05/10/19 06:00 Magnesium mg/dL (1.8-2.4) 05/10/19 06:00 Ferritin 17 ng/mL (26-388) L 05/10/19 06:00 Total Bilirubin 0.5 mg/dL (0.2-1.0) 05/09/19 06:10 AST 37 U/L (15-37) 05/09/19 06:10 ALT 172 U/L (16-63) H 05/09/19 06:10 Alkaline Phosphatase 75 U/L (46-116) 05/09/19 06:10 Troponin I < 0.05 ng/Ml (<0.06) 05/08/19 21:10 NT-Pro-B Natriuret Pep 263 pg/mL (<300) 05/08/19 21:10 Total Protein 6.8 g/dL (6.4-8.2) 05/09/19 06:10 Albumin 3.2 g/dL (3.4-5.0) L 05/09/19 06:10 Triglycerides 54 mg/dL (<150) 05/10/19 06:00 Total Cholesterol 111 mg/dL (<200) 05/10/19 06:00 LDL Cholesterol, Calc 75 mg/dL 05/10/19 06:00 HDL Cholesterol 26 mg/dL (40-60) L 05/10/19 06:00 Procalcitonin 0.1 ng/mL 05/09/19 10:20 TSH 5.70 uIU/mL (0.36-3.74) H 05/08/19 21:10 Free T4 1.02 ng/dL (0.76-1.46) 05/08/19 21:10 Urine Color Yellow (Yellow) 05/09/19 Unknown Urine Clarity Clear (Clear) 05/09/19 Unknown Urine pH 6.0 (5-8) 05/09/19 Unknown Ur Specific [place] 1.025 (1.005-1.025) 05/09/19 Unknown Urine Protein Negative mg/dL (Negative) 05/09/19 Unknown Urine Ketones Negative mg/dL (Negative) 05/09/19 Unknown Urine Blood Trace-intact (Negative) H 05/09/19 Unknown Urine Nitrite Negative (Negative) 05/09/19 Unknown Urine Bilirubin Negative (Negative) 05/09/19 Unknown Urine Urobilinogen 0.2 EU/dL (Up TO 0.2) 05/09/19 Unknown Ur Leukocyte Esterase Negative (Negative) 05/09/19 Unknown Urine RBC 3-5 HPF (0-2) H 05/09/19 Unknown Urine WBC 3-5 HPF (0-5) 05/09/19 Unknown Ur Epithelial Cells Negative HPF (Negative) 05/09/19 Unknown Urine Crystals Negative HPF (Negative) 05/09/19 Unknown Urine Bacteria Few HPF (Negative) 05/09/19 Unknown Urine Casts Negative LPF (Negative) 05/09/19 Unknown Urine Mucus Moderate (Negative) 05/09/19 Unknown Ur Culture Indicated? Yes 05/09/19 Unknown Urine Glucose 100 mg/dL (Negative) 05/09/19 Unknown Urine Opiates Screen Negative (Negative) 05/09/19 Unknown Urine Methadone Screen Negative (Negative) 05/09/19 Unknown Ur Barbiturates Screen Negative (Negative) 05/09/19 Unknown Ur Tricyclics Screen Negative (Negative) 05/09/19 Unknown Ur Amphetamines Screen Negative (Negative) 05/09/19 Unknown U Benzodiazepines Scrn Negative (Negative) 05/09/19 Unknown Urine Cocaine Screen Negative (Negative) 05/09/19 Unknown Ur THC Screen Negative (Negative) 05/09/19 Unknown
--- NOTE | 2019-05-10 08:25 | PDOC.CMPRO ---
- If Service Date Differs Date of service: 05/10/19 Time of Service: 08:25 Care Management Progress Note S/O: Dante is alert and sitting up in the chair. He states he has several goals including weight loss, smoking cessation, and understanding his metabolism better. He also wants to change primary care practices and is willing to stay within [facility] but transition to the [facility] site. CM will contact [facility] when they open on Saturday to schedule a follow up. Dante would benefit from a health life coach as well CM will send a referral over to [facility] to meet with him prior to discharge. If he is not part of the [facility] CM will also refer him to [facility] for nursing case management through Medicaid. RT is trying to facilitate a Triol[facility] for home based on his diagnosis. CM will continue to follow. A: Dante is a 39 year old male admitted with Asthma, and hypoxia P:Dante will be discharged home when medically cleared by provider. Referral to [facility]), [facility], nutrition as outpatient and new primary care prior to discharge. He will also need referral to pulmonary for follow up sleep study. Anticipate need for additional respiratory support at time of discharge. CM will continue to monitor for needs.
[2019-05-10 08:46] LABS: Lactate 2.4 mmol/L (0.6-1.4)
[2019-05-10] MEDS: Pantoprazole 40 MG VIAL IVP (09:51)
[2019-05-10 12:40] LABS: Troponin I < 0.05 ng/Ml (<0.06)
[2019-05-10] MEDS: methylPREDNISolone SUCC 40 MG VIAL IVP (18:17)
[2019-05-11] VITALS (123 sets, daily range): BP systolic 126–150; BP diastolic 72–100; PULSE 65–115; RESP 1–34; TEMP 36.5–36.9; O2SAT 82–99
[2019-05-11] MEDS: Albuterol/Ipratropium 3 ML UPD VIAL UPD ×3 (00:28→11:59)
[2019-05-11] MEDS: methylPREDNISolone SUCC 40 MG VIAL IVP (05:55)
[2019-05-11] MEDS: Enoxaparin 40 MG/0.4 ML SYR SC (05:56)
[2019-05-11] MEDS: Normal Saline Flush 10 ML SYR IVP ×3 (05:57→16:28)
[2019-05-11 07:11] LABS: Abs Immature Grans 0.02 k/cumm (0.0-0.09); Absolute Lymphocyte Count 0.42 k/cumm (1.2-3.4); Absolute Monocyte Count 0.68 k/cumm (0.11-0.7); Absolute Neutrophil Count 9.48 k/cumm (1.2-6.7); HGB 18.7 g/dL (13.5-17.5); Immature Grans % 0.2; Mean Corp. HGB Concentration 31.2 g/dL (32.0-36.0); Mean Corpuscular Hemoglobin 28.6 pg (27.0-33.0); Mean Corpuscular Volume 91.6 fL (80-95); Mean Platelet Volume 12.4 fL (8.0-11.0); Monocytes % 6.4; Neutrophils % 89.4; RBC 6.54 m/cumm (4.50-6.00); RBC Distribution Width 17.1 % (11.8-14.1)
[2019-05-11 07:18] LABS: Anion Gap 6.1 mmol/L (3-11); BUN 17 mg/dL (7-18); CO2 35.9 mmol/L (21.0-32.0); CREATININE 0.76 mg/dL (0.70-1.30); Calcium 8.4 mg/dL (8.5-10.1); Chloride 100 mmol/L (98-107); Glucose 177 mg/dL (74-106); Magnesium 2.2 mg/dL (1.8-2.4); Potassium 4.1 mmol/L (3.5-5.1); Sodium 142 mmol/L (136-145)
[2019-05-11 07:38] LABS: HCT 59.9 % (40.0-50.0)
[2019-05-11 07:39] LABS: Diff Comment RBC Morph Reviewed; Platelet Count 155 x1000/uL (130-400); Polychromasia Present
[2019-05-11 07:57] LABS: ALT 86 U/L (16-63); AST 18 U/L (15-37); Albumin 3.1 g/dL (3.4-5.0); Alkaline Phosphatase 58 U/L (46-116); Bilirubin, Direct 0.21 mg/dL (0.00-0.20); Bilirubin, Total 0.7 mg/dL (0.2-1.0); Total Protein 6.5 g/dL (6.4-8.2)
[2019-05-11] MEDS: Insulin Aspart 300 UNITS/3 ML PEN SC ×3 (08:01→16:39)
--- NOTE | 2019-05-11 08:19 | PGE_ITS ---
Date of Service Date of service: 05/11/19 Time of Service: : Assessment and Plan Assessment and plan (1) Acute on chronic respiratory failure with hypoxia and hypercapnia: Status: Acute Assessment and plan: This is likely multifactorial. (JOHANNE/OHS/muscular dystrophy/pulmonary hypertension/possible COPD; no clear acute bronchitis at this time). Doing better with BiPAP. Decrease and change steroids to PO. Triying to organize a trilogy machine to trial settings tonight. PFTs done today. (2) V-tach: Status: Acute Assessment and plan: While awake, but undergoing titration of oxygen/BiPAP. Evaluated by cardiology. No evidence of cardiomyopathy on echo. Agreed that he would benefit from an outpatient zio patch for closer monitoring. No BB at this time. Will need cardiology follow up on discharge. Keep on tele. (3) Acute respiratory acidosis: Status: Resolved Assessment and plan: as above (4) CO2 narcosis: Status: Resolved Assessment and plan: As above (5) Pulmonary hypertension: Status: Acute Assessment and plan: Due to long-standing respiratory failure. Need to treat respiratory failure. Also, volume status becomes important to monitor - will give lasix x1 IV at this time as appears slightly fluid overloaded. (6) Secondary polycythemia: Status: Chronic Assessment and plan: Due to smoking/chronic hypoxia with pulmonary hypertension/JOHANNE/OHS. I expect this to improve with treatment of underlying respiratory issures. If he failes to improve, then I would initiate a workup for polycythemia vera, but at this time the clinical suspicion for secondary polycythemia is very high. (7) Fascioscapulohumeral muscular dystrophy: Status: Chronic Assessment and plan: As above - up to 10% of patients do end up having restrictive lung disease. Otherwise, it had been stable, as per Dr Lam's note earlier this year. Concern for cardiac conduction issues - will need a zio patch. PFTs done today. (8) Steroid-induced hyperglycemia: Status: Acute Assessment and plan: In addition to prediabetes. Speaking with diabetes education today. Covering with SSI here; titrating steroids down. (9) Obesity, morbid, BMI 40.0-49.9: Status: Chronic Assessment and plan: Very high clinical suspicion for JOHANNE/OHS. Would benefit from weight loss. (10) Prediabetes: Status: Acute Assessment and plan: as above. metformin may not be a good drug due to lactic acidosis - will discuss with oswald guerin. (11) Tobacco dependence: Status: Chronic Assessment and plan: Provide nicotine replacement. Advised to quit smoking. (12) Subclinical hypothyroidism: Status: Acute Assessment and plan: Will need outpatient follow up - no inidication for initiation of treatment at this time. (13) DVT prophylaxis: Status: Acute Assessment and plan: Lovenox SC (14) Discharge planning issues: Status: Acute Assessment and plan: Keep in ICU Full code Plan for discharge home tomorrow Dante is a patient under my care for many complex medical issues, as above. Dante would benefit from the usage of NIV via the Triology in his home to treat his Chronic Respiratory Failure with hypoxia and hypercapnia due to COPD, pulmonary hypertension, and facioscapular muscular dystrophy. Dante is currently utilizing our Drager Gaby, current settings are 20/10 with a BR of 6; patient is feeling relief and CO2 is slowly decreasing as shown in the attached blood gasses. The Trilogy will allow for AVAPs-AE setting, which will provide optimal benefits for his inevitable worsening respiratory status and will meet his current ventilation needs including a varying tidal volume and minute ventilation based on his ideal weight, decrease his work of breathing, decrease CO2 retention, and increase his oxygenation, as well as reduce flow limitations, prevent air trapping and breath stacking. This will improve his overall quality of life and reduce further hospitalizations that may occur without proper treatment. NIV via the Trilogy will also allow a secondary mode MPV/PC. This will allow the patient to use this device during the day for shortness of breath with a [employer] and a mouth piece adapter. As a treating provider for this patient, it is medically necessary that he use the NIV therapy via the Trilogy Non-Invasive ventilator. The trilogy also operates on a battery which will allow for continued usage during power outages as a lapse in usage or interruption in ventilation may lead to life-threatening consequences. This is extremely important as he will depend on the usage of this equipment on and off through the waking hours in addition to nocturnally. Subjective Subjective Interval history since last seen: Overnight, BiPAP turned up to 20/10 and FiO2 26%. Wore BiPAP until 4 am, when he woke up, then on room air 90%. PVC's this am. No Vtach. Feels better. Coughed up 1 greenish sputum, but no cough since. Denies dizziness, chest pain, shortness of breath, nausea. On room air during the day. Exam Narrative Exam Narrative: General: Obese male wide awake, A&OX3, sitting at the side of the bed; talking in lengthy sentences with no dyspnea/tachypnea/cough/wheezing HEENT: EOMI, MMM Heart: RRR, no m/r/g Lungs: CTAB Abdomen: soft, obese Extremities: +1 BLE edema, no c/c. Objective Objective Clinical Data: Abnormal lab results 05/10/19 05/10/19 05/11/19 Range/Units 05:35 08:41 06:25 RBC (4.50-6.00) m/cumm Hgb (13.5-17.5) g/dL Hct (40.0-50.0) % MCHC (32.0-36.0) g/dL RDW (11.8-14.1) % MPV (8.0-11.0) fL Absolute Neutrophils (1.2-6.7) k/cumm Absolute Lymphocytes (1.2-3.4) k/cumm Carbon Dioxide (21.0-32.0) mmol/L Glucose (74-106) mg/dL Lactate 2.4 H* (0.6-1.4) mmol/L Calcium (8.5-10.1) mg/dL Iron 16 L (65-175) ug/dL Transferrin % Sat 4 L (20-55) % Conjugated Bilirubin 0.21 H (0.00-0.20) mg/dL ALT 86 H (16-63) U/L Albumin 3.1 L (3.4-5.0) g/dL 05/11/19 05/11/19 05/11/19 Range/Units 06:45 06:45 06:45 RBC 6.54 H (4.50-6.00) m/cumm Hgb 18.7 H (13.5-17.5) g/dL Hct 59.9 H* (40.0-50.0) % MCHC 31.2 L (32.0-36.0) g/dL RDW 17.1 H (11.8-14.1) % MPV 12.4 H (8.0-11.0) fL Absolute Neutrophils 9.48 H (1.2-6.7) k/cumm Absolute Lymphocytes 0.42 L (1.2-3.4) k/cumm Carbon Dioxide 35.9 H (21.0-32.0) mmol/L Glucose 177 H D (74-106) mg/dL Lactate 3.0 H* (0.6-1.4) mmol/L Calcium 8.4 L (8.5-10.1) mg/dL Iron (65-175) ug/dL Transferrin % Sat (20-55) % Conjugated Bilirubin (0.00-0.20) mg/dL ALT (16-63) U/L Albumin (3.4-5.0) g/dL Vital Signs Temperature 36.7 C 05/11/19 07:42 Temperature Source Temporal Artery Scan 05/11/19 07:42 Pulse 80 05/11/19 07:45 Pulse Rhythm Regular 05/09/19 07:30 Pulse 84 05/11/19 07:45 Respiratory Rate 15 05/11/19 07:45 Respiratory Effort 05/11/19 07:42 Respiratory Depth Normal 05/11/19 07:42 Respiratory Pattern Normal 05/11/19 07:42 Blood Pressure 142/86 H 05/11/19 07:45 Blood Pressure Mean 97 05/11/19 07:45 Blood Pressure Position Supine 05/11/19 03:28 Pulse Oximetry 95 05/11/19 07:45 Oxygen Delivery Method Room Air 05/11/19 07:42 Oxygen Flow Rate 0 05/11/19 07:42 Fraction of Inspired Oxygen (FIO2) 26 05/11/19 07:42 Pain Level 0 05/11/19 07:42 Comment 05/09/19 06:35 Intake & Output 05/10/19 05/10/19 05/11/19 11:59 23:59 11:59 Intake Total 1160 / 1640 480 / 1640 120 / 120 Output Total 850 / 1850 1000 / 1850 700 / 700 Balance 310 / -210 -520 / -210 -580 / -580 Weight 153.6 kg 156.1 kg Intake: Oral 1160 / 1640 480 / 1640 120 / 120 Output: Urine 850 / 1850 1000 / 1850 700 / 700 Other: Urine Color Dark Stephanie Yellow Yellow Urine Appearance Clear Clear Clear Urine Odor None Comment [place] draining clear yellow. voids in large amts. urine is clear yelow voids in large amts. urine is clear yelow Voiding Methods Urinal Urinal Laboratory Results WBC 10.60 k/cumm (4.4-10.8) 05/11/19 06:45 RBC 6.54 m/cumm (4.50-6.00) H 05/11/19 06:45 Hgb 18.7 g/dL (13.5-17.5) H 05/11/19 06:45 Hct 59.9 % (40.0-50.0) H* 05/11/19 06:45 MCV 91.6 fL (80-95) 05/11/19 06:45 MCH 28.6 pg (27.0-33.0) 05/11/19 06:45 MCHC 31.2 g/dL (32.0-36.0) L 05/11/19 06:45 RDW 17.1 % (11.8-14.1) H 05/11/19 06:45 Plt Count 155 x1000/uL (130-400) 05/11/19 06:45 MPV 12.4 fL (8.0-11.0) H 05/11/19 06:45 Immature Gran % 0.2 05/11/19 06:45 Neutrophils % 89.4 05/11/19 06:45 Band Neutrophils % Credit Card Specialist 05/10/19 06:00 Lymphocytes % 4.0 05/11/19 06:45 Atypical Lymphs % Credit Card Specialist 05/10/19 06:00 Monocytes % 6.4 05/11/19 06:45 Eosinophils % 0.0 05/11/19 06:45 Basophils % 0.0 05/11/19 06:45 Metamyelocytes % Credit Card Specialist 05/10/19 06:00 Myelocytes % Credit Card Specialist 05/10/19 06:00 Promyelocytes % Credit Card Specialist 05/10/19 06:00 Absolute Neutrophils 9.48 k/cumm (1.2-6.7) H 05/11/19 06:45 Absolute Lymphocytes 0.42 k/cumm (1.2-3.4) L 05/11/19 06:45 Absolute Monocytes 0.68 k/cumm (0.11-0.7) 05/11/19 06:45 Absolute Eosinophils 0.00 k/cumm (0.0-0.7) 05/11/19 06:45 Absolute Basophils 0.00 k/cumm (0.0-0.2) 05/11/19 06:45 Nucleated RBCs Credit Card Specialist 05/10/19 06:00 Differential Comment Rbc morph reviewed 05/11/19 06:45 Other Cell Type Credit Card Specialist 05/10/19 06:00 RBC Morphology See below 05/11/19 06:45 Polychromasia Present 05/11/19 06:45 Hypochromasia Credit Card Specialist 05/10/19 06:00 Poikilocytosis Credit Card Specialist 05/10/19 06:00 Basophilic Stippling Credit Card Specialist 05/10/19 06:00 Anisocytosis Credit Card Specialist 05/10/19 06:00 Microcytosis Credit Card Specialist 05/10/19 06:00 Macrocytosis Credit Card Specialist 05/10/19 06:00 Spherocytes Credit Card Specialist 05/10/19 06:00 Target Cells Credit Card Specialist 05/10/19 06:00 Tear Drop Cells Credit Card Specialist 05/10/19 06:00 Ovalocytes Credit Card Specialist 05/10/19 06:00 Stomatocytes Credit Card Specialist 05/10/19 06:00 [place] Bodies Credit Card Specialist 05/10/19 06:00 Good Cells Credit Card Specialist 05/10/19 06:00 Acanthocytes (Spur) Credit Card Specialist 05/10/19 06:00 Schistocytes Credit Card Specialist 05/10/19 06:00 PT 11.6 sec (9.3-11.0) H 05/08/19 21:10 INR 1.2 (0.9-1.1) H 05/08/19 21:10 APTT 26.1 sec (21.0-31.4) 05/08/19 21:10 Sample Site Right radial 05/09/19 11:30 pCO2 46 mmHg (34-47) 05/09/19 11:30 pO2 97 mmHg (83-108) 05/09/19 11:30 O2 Saturation 98 % (94-98) 05/09/19 11:30 ABG pH 7.51 (7.35-7.45) H 05/09/19 11:30 ABG HCO3 37 mmol/L (22-28) H 05/09/19 11:30 ABG Total CO2 30 mmol/L (22-29) H 05/09/19 11:30 ABG Base Excess 13.6 mmol/L (-3-3) H 05/09/19 11:30 VBG pH 7.35 (7.32-7.43) 05/09/19 01:20 VBG pCO2 73 mm/Hg (34-47) H 05/09/19 01:20 VBG pO2 47 mm/Hg (28-44) H 05/09/19 01:20 VBG HCO3 40 mmol/L (22-28) H 05/09/19 01:20 VBG Total CO2 34 mmol/L (22-29) H 05/09/19 01:20 VBG O2 Saturation 83 % (70-80) H 05/09/19 01:20 VBG Base Excess 14.5 mmol/L (-3-3) H 05/09/19 01:20 Oxygen Liter Flow Bipap 30/5 L 05/09/19 11:30 FiO2 40% % 05/09/19 11:30 Sodium 142 mmol/L (136-145) 05/11/19 06:45 Potassium 4.1 mmol/L (3.5-5.1) 05/11/19 06:45 Chloride 100 mmol/L (98-107) 05/11/19 06:45 Carbon Dioxide 35.9 mmol/L (21.0-32.0) H 05/11/19 06:45 Anion Gap 6.1 mmol/L (3-11) 05/11/19 06:45 BUN 17 mg/dL (7-18) 05/11/19 06:45 Creatinine 0.76 mg/dL (0.70-1.30) 05/11/19 06:45 Estimated GFR/1.73 m2 >= 60.00 (mL/min/1.73m2) 05/11/19 06:45 Glucose 177 mg/dL (74-106) H D 05/11/19 06:45 Hemoglobin A1c 6.4 % (4.5-6.2) H 05/09/19 06:37 Lactate 3.0 mmol/L (0.6-1.4) H* 05/11/19 06:45 Calcium 8.4 mg/dL (8.5-10.1) L 05/11/19 06:45 Magnesium 2.2 mg/dL (1.8-2.4) 05/11/19 06:45 Iron 16 ug/dL (65-175) L 05/10/19 05:35 TIBC 394 ug/dL (250-450) 05/10/19 05:35 Transferrin % Sat 4 % (20-55) L 05/10/19 05:35 Ferritin 17 ng/mL (26-388) L 05/10/19 06:00 Total Bilirubin 0.7 mg/dL (0.2-1.0) 05/11/19 06:25 Conjugated Bilirubin 0.21 mg/dL (0.00-0.20) H 05/11/19 06:25 AST 18 U/L (15-37) 05/11/19 06:25 ALT 86 U/L (16-63) H 05/11/19 06:25 Alkaline Phosphatase 58 U/L (46-116) 05/11/19 06:25 Troponin I < 0.05 ng/Ml (<0.06) 05/10/19 07:15 NT-Pro-B Natriuret Pep 263 pg/mL (<300) 05/08/19 21:10 Total Protein 6.5 g/dL (6.4-8.2) 05/11/19 06:25 Albumin 3.1 g/dL (3.4-5.0) L 05/11/19 06:25 Triglycerides 54 mg/dL (<150) 05/10/19 06:00 Total Cholesterol 111 mg/dL (<200) 05/10/19 06:00 LDL Cholesterol, Calc 75 mg/dL 05/10/19 06:00 HDL Cholesterol 26 mg/dL (40-60) L 05/10/19 06:00 Procalcitonin 0.1 ng/mL 05/09/19 10:20 TSH 5.70 uIU/mL (0.36-3.74) H 05/08/19 21:10 Free T4 1.02 ng/dL (0.76-1.46) 05/08/19 21:10 Urine Color Yellow (Yellow) 05/09/19 Unknown Urine Clarity Clear (Clear) 05/09/19 Unknown Urine pH 6.0 (5-8) 05/09/19 Unknown Ur Specific [place] 1.025 (1.005-1.025) 05/09/19 Unknown Urine Protein Negative mg/dL (Negative) 05/09/19 Unknown Urine Ketones Negative mg/dL (Negative) 05/09/19 Unknown Urine Blood Trace-intact (Negative) H 05/09/19 Unknown Urine Nitrite Negative (Negative) 05/09/19 Unknown Urine Bilirubin Negative (Negative) 05/09/19 Unknown Urine Urobilinogen 0.2 EU/dL (Up TO 0.2) 05/09/19 Unknown Ur Leukocyte Esterase Negative (Negative) 05/09/19 Unknown Urine RBC 3-5 HPF (0-2) H 05/09/19 Unknown Urine WBC 3-5 HPF (0-5) 05/09/19 Unknown Ur Epithelial Cells Negative HPF (Negative) 05/09/19 Unknown Urine Crystals Negative HPF (Negative) 05/09/19 Unknown Urine Bacteria Few HPF (Negative) 05/09/19 Unknown Urine Casts Negative LPF (Negative) 05/09/19 Unknown Urine Mucus Moderate (Negative) 05/09/19 Unknown Ur Culture Indicated? Yes 05/09/19 Unknown Urine Glucose 100 mg/dL (Negative) 05/09/19 Unknown Urine Opiates Screen Negative (Negative) 05/09/19 Unknown Urine Methadone Screen Negative (Negative) 05/09/19 Unknown Ur Barbiturates Screen Negative (Negative) 05/09/19 Unknown Ur Tricyclics Screen Negative (Negative) 05/09/19 Unknown Ur Amphetamines Screen Negative (Negative) 05/09/19 Unknown U Benzodiazepines Scrn Negative (Negative) 05/09/19 Unknown Urine Cocaine Screen Negative (Negative) 05/09/19 Unknown Ur THC Screen Negative (Negative) 05/09/19 Unknown
--- NOTE | 2019-05-11 08:46 | CMPROGNOTE_ITS ---
- If Service Date Differs Date of service: 05/11/19 Time of Service: 08:46 Care Management Progress Note S/O: Dante remains inpatient today RT is working with [facility] for his Trilogy. CM sent a referral to [facility], [place] and left a voicemail for the nurse at [facility] to see if he can be scheduled at that practice. CM will need to call [facility] in [place] to confirm he can transfer. [phone] A: Dante is a 39 year old male admitted with Asthma, and hypoxia P:Dante will be discharged home when medically cleared by provider. Referral to [facility], [place], nutrition as outpatient and new primary care prior to discharge. He will also need referral to pulmonary for follow up sleep study. Anticipate need for additional respiratory support at time of discharge. CM will continue to monitor for needs.
--- NOTE | 2019-05-11 08:46 | PDOC.CMPRO ---
- If Service Date Differs Date of service: 05/11/19 Time of Service: 08:46 Care Management Progress Note S/O: Dante remains inpatient today RT is working with [facility] for his Trilogy. CM sent a referral to [facility], [employer] and left a voicemail for the nurse at [facility] to see if he can be scheduled at that practice. CM will need to call [facility] in [place] to confirm he can transfer. [phone] A: Dante is a 39 year old male admitted with Asthma, and hypoxia P:Dante will be discharged home when medically cleared by provider. Referral to [facility], [employer], nutrition as outpatient and new primary care prior to discharge. He will also need referral to pulmonary for follow up sleep study. Anticipate need for additional respiratory support at time of discharge. CM will continue to monitor for needs.
--- NOTE | 2019-05-11 08:55 | W.CARDCONSUL ---
Date of service: 05/11/19 Time of Service: 08:55 Assessment and Plan Assessment and plan (1) V-tach: Status: Acute Assessment and plan: 1. Ventricular tachycardia in the setting of profound hypoxemia as well as fascioscapulohumeral muscular dystrophy. Patients with particular types of muscular dystrophy are at higher risk for cardiomyopathy as well as ventricular arrhythmias. That is usually associated with Duchenne's muscular dystrophy as well as Salazar's muscular dystrophy. These patients are often given ICD therapy to prevent sudden cardiac . This patient's particular type of muscular dystrophy does not appear to have that same association with sudden cardiac or cardiomyopathy though I would imagine he is at slight higher risk for arrhythmia as compared to the general population. The patient was being treated in the intensive care unit for acute on chronic hypoxemia at the time of his ventricular tachycardia. Given the setting surrounding this episode I agree with echocardiogram to rule out cardiomyopathy and aggressive management of his chronic hypoxemia. I think the patient would benefit from an outpatient ZIO Patch to better characterize the degree of PVCs/ventricular tachycardia. On telemetry during the study the patient has occasional PVCs which are asymptomatic and I do not think require beta-manju therapy at this time. ?Follow-up echocardiogram ?Continue telemetry monitoring ?Should patient have frequent PVCs I would consider beta-manju as long as his respiratory symptoms are controlled. ?At discharge please give patient a ZIO Patch ?I would like to see patient for follow-up to discuss results of patch in 1 to 2 months. (2) Fascioscapulohumeral muscular dystrophy: Status: Chronic History of Present Illness History of Present Illness Chief Complaint: SOB Narrative: Mr Powers is 39 yo male with pmhx significant for obesity, tobacco abuse, fascioscapulohumeral muscular dystrophy who presents with hypoxia. Per chart review and discussion with patient, patient came to the emergency room just feeling chronically unwell. In the emergency room he was found to be severely hypoxic which did not respond to nebulizers. He was admitted overnight for evaluation and required BiPAP. The etiology of his hypoxia appears to be multifactorial involving obstructive sleep apnea, lung disease and obesity. 2 nights ago while sleeping the patient had a 28 beat run of ventricular tachycardia. He was asymptomatic at this time. Since that episode the patient has occasional PVCs but again has been asymptomatic. The patient has polycythemia which suggests a chronic nature of his hypoxemia. Patient currently denies chest pain, lightheadedness or dizziness. Regarding his muscular dystrophy he states he was diagnosed as a teenager after a prolonged work-up involving folks from [place] as well as [facility]. He says since receiving that diagnosis he has not sought medical care in any way and has neglected his health in general. He knows he is overweight and has trouble sleep apnea but until now has not been evaluated for it. He is adopted and has no known family members for which to discuss family history of muscular dystrophy. He currently denies lightheadedness or dizziness. He says he occasionally has palpitations specifically after drinking alcohol or caffeine. Says he is not bothered by them. Review of Systems All systems reviewed & are unremarkable except as noted in HPI and below PFSH Medical History Fascioscapulohumeral muscular dystrophy (Chronic 10/25/15) Family History Other Adopted Social History Smoking/Tobacco Use Status: Current every day Tobacco Type: cigarettes Alcohol Intake: current Alcohol Intake frequency: holidays/special occasions only Alcohol type: beer Drug use: Occasionally Substance use type: marijuana Details: last smoked marijuana 2 weeks ago. 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 He did not complete high school. He has 2 daughters who live with their mother; ages 8 and 10. Exam Const General: comfortable and no acute distress [facility] Head: normocephalic and atraumatic Eyes General: appearance normal, both eyes and all related structures Resp Effort & Inspection: normal respiratory effort Auscultation: clear to auscultation bilaterally Cardio Jugular venous pressure: no JVD Palpation: normal PMI Rate: regular rate Rhythm: regular rhythm Heart Sounds: S1 normal and S2 normal (No Murmurs, Rubs or Gallops) GI Palpation: soft Auscultation: normoactive bowel sounds Skin General skin exam: no rashes or lesions noted Extrem General: normal to inspection and no clubbing, cyanosis or edema Psych Appearance: grossly normal Results Last Vital Signs Temp 36.7 C 05/11/19 07:42 Pulse 80 05/11/19 07:45 Resp 15 05/11/19 07:45 BP 142/86 H 05/11/19 07:45 Pulse Ox 95 05/11/19 07:45 Labs Result diagrams: 05/11/19 06:45 05/11/19 06:45 Labs: Laboratory Results - last 24 hr 05/10/19 05/11/19 05/11/19 07:15 06:25 06:45 WBC RBC Hgb Hct MCV MCH MCHC RDW Plt Count MPV Immature Gran % Neutrophils % Lymphocytes % Monocytes % Eosinophils % Basophils % Absolute Neutrophils Absolute Lymphocytes Absolute Monocytes Absolute Eosinophils Absolute Basophils Differential Comment RBC Morphology Polychromasia Sodium 142 Potassium 4.1 Chloride 100 Carbon Dioxide 35.9 H Anion Gap 6.1 BUN 17 Creatinine 0.76 Estimated GFR/1.73 m2 >= 60.00 Glucose 177 H D Lactate Calcium 8.4 L Magnesium 2.2 Total Bilirubin 0.7 Conjugated Bilirubin 0.21 H AST 18 ALT 86 H Alkaline Phosphatase 58 Troponin I < 0.05 Total Protein 6.5 Albumin 3.1 L 05/11/19 05/11/19 06:45 06:45 WBC 10.60 RBC 6.54 H Hgb 18.7 H Hct 59.9 H* MCV 91.6 MCH 28.6 MCHC 31.2 L RDW 17.1 H Plt Count 155 MPV 12.4 H Immature Gran % 0.2 Neutrophils % 89.4 Lymphocytes % 4.0 Monocytes % 6.4 Eosinophils % 0.0 Basophils % 0.0 Absolute Neutrophils 9.48 H Absolute Lymphocytes 0.42 L Absolute Monocytes 0.68 Absolute Eosinophils 0.00 Absolute Basophils 0.00 Differential Comment Rbc morph reviewed RBC Morphology See below Polychromasia Present Sodium Potassium Chloride Carbon Dioxide Anion Gap BUN Creatinine Estimated GFR/1.73 m2 Glucose Lactate 3.0 H* Calcium Magnesium Total Bilirubin Conjugated Bilirubin AST ALT Alkaline Phosphatase Troponin I Total Protein Albumin
--- NOTE | 2019-05-11 09:00 | DI.US_ITS ---
APPROVED REPORT EXAM: Comprehensive 2D, Doppler, and color-flow Echocardiogram Patient Location: In-Patient Industrial Education Instructor: ERIK Beach ([place]) Rhythm: NSR Indications: suspected pulmonary HTN Conclusion This is a technically limited study. Left Ventricle : The left ventricle is normal size. Mild left ventricular hypertrophy. LV diastolic function is indeterminate. The left ventricular systolic function is normal. The left ventricular ej ection fraction is within the normal range. Cannot adequately visualize all wall segments due to tech nical limitations. LVEF is estimated to be 55-60%. Right Ventricle : The right ventricle is mildly dilated. The right ventricular systolic function is n ormal. Atria : Left atrium is mildly dilated. Right atrium is mildly dilated. Aortic Valve : Aortic valve is probably trileaflet. There is no aortic valvular stenosis. No aortic r egurgitation was seen. Mitral Valve : The mitral valve appears normal in structure. No evidence of mitral valve stenosis. Tricuspid Valve : Tricuspid valve is not well visualized. Great Vessels : The aortic root is normal in size. The ascending aorta size is normal. The IVC is dil ated but collapses. Estimated RVSP is 38-46 mmHg. There is no prior echocardiogram available for comparison. Wall motion Left Ventricle The left ventricle is normal size. The left ventricular systolic function is normal. The left ventric ular ejection fraction is within the normal range. Mild left ventricular hypertrophy. Cannot adequate ly visualize all wall segments due to technical limitations. LV diastolic function is indeterminate. LVEF is estimated to be 55-60%. Right Ventricle The right ventricle is mildly dilated. The right ventricular systolic function is normal. Atria Left atrium is mildly dilated. Right atrium is mildly dilated. Aortic Valve Aortic valve is probably trileaflet. There is no aortic valvular stenosis. No aortic regurgitation wa s seen. Mitral Valve The mitral valve appears normal in structure. No evidence of mitral valve stenosis. Trace mitral regu rgitation. Tricuspid Valve Tricuspid valve is not well visualized. Trivial tricuspid regurgitation. Pulmonic Valve Pulmonic valve is not well visualized. Great Vessels The aortic root is normal in size. The ascending aorta size is normal. The IVC is dilated but collaps es. Estimated RVSP is 38-46 mmHg. Pericardium There is no pericardial effusion. 2D Dimensions IVSd 1.55 cm M: 0.6-1.2 LV EDV A4C 168.10 mL PWd 1.25 cm M: 0.6 - 1.2 LA Volume Index A2C 12.01 mL/m2 LVDd 5.40 cm M: 4.2 - 5.8 LA Volume Index A4C 46.65 mL/m2 LVDs 3.80 cm M: 2.5 - 4.0 LA Volume Index Biplane 25.47 mL/m2 Aortic Root 3.00 cm M: 3.1 - 3.7 LA Area A4C 29.07 cm2 RA Area A4C 21.82 cm2 LA Area A2C 13.71 cm2 LVOT 2.00 cm (M/F) 1.5-2.5 EF AP4 54.97 % Ascending Aorta 3.12 cm M: 2.6 - 3.4 LVEF (Teich) 55.57 % LV Volume Index 63.13 mL/m2 M: 34 - 74 FS 29.20 % LV Diastology E/A Ratio 1.2 MED E' 0.09 (>0.07 m/s) LV E/e MED 8.95 (<14) LAT E' 0.12 (>0.1 m/s) LV E/e LAT 6.80 (<14) Aortic Valve LVOT Area 3.22 cm2 LVOT Peak Abhinav. 0.95 m/s LVOT Mean Abhinav. 0.75 m/s LVOT Peak Gr. 3.80 mmHg RAMON Vmax Index 0.85 cm2/m2 LVOT Mean Gr. 2.40 mmHg LVOT VTI 0.15 m RAMON Mean Abhinav. Index 0.95 cm2/m2 AoV Peak Abhinav. 1.39 (0.5-1.3 m/s) AoV Mean Abhinav. 0.96 m/s AO Peak GR. 7.67 mmHg AO Mean GR. 4.13 (<5 mmHg) VTI Ratio 0.74 RAMON (VTI) 2.38 (2.5-4.5 cm2) RAMON (VTI) Index 0.89 cm/m2 Mitral Valve MV E Max Abhinav. 0.80 (0.4-1.3 m/s) MV A Velocity 0.65 (0.4-1.3 m/s) E/A Ratio 1.18 MV Decel. Time 171.35 (160-240 msec) MV PHT 49.70 msec MVA PHT 4.40 cm2 Pulmonary Valve PV Peak Velocity 1.30 (0.5-1.5 m/s) Tricuspid Valve TR P. Velocity 3.08 m/s TV Regurg Vmax 3.08 m/s RAP Estimate 8.00 mmHg RVSP 46.00 mmHg TR P. Gradient 37.90 mmHg
[2019-05-11] MEDS: Pantoprazole 40 MG VIAL IVP (10:39)
[2019-05-11] MEDS: Nicotine 21 MG/24 HR PATCH TD (14:23)
--- NOTE | 2019-05-11 14:36 | CHAPLAIN ---
Dante's girlfriend Kenzie was just leaving as I arrived to visit. Dante tells me about being admitted three days ago, and hospital staff working with him to make changes to improve his health. He said he knows he needs to stop smoking and eat better. He has tried to stop smoking several times, and usually uses the patches and gum and has had some success, until he tries to have one cigarette. He said well-meaning people are encouraging him and he appreciates their support, but unless they themselves have smoked and quit, he said they don't understand. He shared some personal history and told me about his work history. He has two daughters, two stepsons and a niece and nephew, so motivation to make changes, he said. Dante was raised Religion but has not attended zoroastrian in many years. His parents still attend a Religion [employer] regularly. I will plan to visit Dante again.
--- NOTE | 2019-05-11 15:07 | IN_ITS ---
Date of service: 05/11/19 Time of Service: 13:46 PT Notes Visit Reasons: EXACERBATION ASTHMA WITH HYPOXEMIA Physical Therapy Inpatient Initial Evaluation Date: 05/11/2019 Referring Doctor: Venessa Mendez MD PT Orders: PT CONSULT: Limited ability. Complaints of shoulder pain/diffic ulties with room:h/o muscular dystrophy Precautions: Fall. Standard. Activity as tolerated Patient Profile/Admitting Diagnosis: Patient is a 39-year-old male with past medical history significant for fascioscapulohumeral muscular dystrophy who presented to the ED on 05/08/2019 with chief presentation of diffuse wheezing and hypoxia. Patient is diagnosed with acute on chronic hypoxemia, asthma exacerbation, and tobacco dependence. 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 He states that he can manage steps at home independently without any issues. He further reports that since he has had his home set up for his limited range of motion to bilateral shoulders so that all his activities of daily living is managed without any difficulty and without the need for an adaptive equipment. He is independent with all mobility ADL performance without the need for an AD. Equipment Owned/DME: None Subjective: Patient is agreeable to a PT consult. He states that he is at baseline with his shoulder range of motion and with his abilities using both his upper extremities. Since the table here gets moved and gets readjusted several times, frequently he needs to set it back to his preferred height. He elaborates that at home and at work, he has a system that he has set up for a long time to make sure that things work efficiently for him. He admits that he needs to work on his diet, get back to exercising, and manage his life and work a lot better. He does not feel that he needs PT services at this time. Objective: General Observation: Patient seen resting in bed. Telemetry and pulse oximetry monitoring in place. Scapular winging with R more pronounced than left. Mental Status: Alert and oriented x 4 Pain: 0/10 Vital Signs: Oxygen saturation stayed from 88% to 92% throughout activity ROM: Right Upper Extremity: Shoulder Flexion allows up to 70 degrees actively . Shoulder abduction 65 degrees actively. Elbow flexion WFL. Wrist flexion WFL. Opening and closing of hand WFL. Left Upper Extremity: Shoulder Flexion allows up to 80 degrees actively . Shoulder abduction 755 degrees actively. Elbow flexion WFL. Wrist flexion WFL. Opening and closing of hand WFL. Right Lower Extremity: Hip flexion WFL. Hip abduction WFL. Knee flexion WFL. Ankle dorsiflexion up to 10 degrees from neutral. Ankle plantarflexion WFL. Left Lower Extremity: Hip flexion WFL. Hip abduction WFL. Knee flexion WFL. Ankle dorsiflexion WFL. Ankle plantarflexion WFL. Strength: Right Upper Extremity: Shoulder flexors 3-/5. Shoulder abductors 3-/5. Elbow flexors 4/5. Elbow extensors 4-/5. Tricot Knitter weak but functional. Left Upper Extremity: Shoulder flexors 3-/5. Shoulder abductors 3-/5. Elbow flexors 4/5. Elbow extensors 4-/5 Tricot Knitter strong. Right Lower Extremity: Hip flexors 4/5. Hip abductors 5/5. Knee flexors 5/5. Knee extensors 5/5. Ankle dorsiflexors 3-/5. Ankle plantarflexors 5/5. Left Lower Extremity:Hip flexors 4/5. Hip abductors 5/5. Knee flexors 5/5. Knee extensors 5/5. Ankle dorsiflexors 5/5. Ankle plantarflexors 5/5. Sensation: Intact as to pain and pressure on bilateral lower extremities. Bed Mobility/Transfers: Rolling independent Supine to sit independent Sit to supine independent Sit to stand independent Stand to sit independent Bed to chair independent Chair to bed independent Gait: Patient tolerated level surface ambulation of 173 feet without and assistive device independently with saturation levels dipping down to 88% on room air but resaturating back to 92% with rest. No complaint of pain, headache, chest pain, dizziness reported. Balance: Static Sitting: Normal Dynamic Sitting: Normal Static Standing: Normal Dynamic Standing: Normal Special Tests: Mobility Limitations Standardized Measure [facility] 6 clicks Basic Mobility Inpatient Short Form: Raw Score: 24 CMS Score: 0% deficit 30-second chair rise score of 10 is a little below the norm for his age but this has something to do with continuing limited activity tolerance from recent diagnosis, FSH muscular dystrophy, and obesity. 2-minute walk test of 174 feet indicative of mild limitation in activity tolerance due to recent diagnosis, FSH muscular dystrophy, and obesity. Informed Consent/Education: Patient instructed in purpose of PT consult and plan of care. Discussion on the benefits of diet modification and weight reduction, in conjunction with regular exercises done with the supervision of a trained professional, will significantly mitigate on going symptoms. Patient is not interested with initiating any exercises for his B shoulders and for pulmonary re-conditioning while on admission here. Assessment: Patient is a 39-year-old male with past medical history significant for fascioscapulohumeral muscular dystrophy who presented to the ED on 05/08/2019 with chief complainnts of diffuse wheezing and dyspnea on exertion. Patient is diagnosed with acute on chronic hypoxemia, asthma exacerbation, and tobacco dependence. On evaluation however, patient demonstrated independence with all mobility ADL performance and reports no pain on B shoulders and is therefore all set with no PT services. Patient presents with clinical signs and symptoms consistent with current/admitting diagnoses that have resulted to mobility limitations, gait instability, generalized weakness, and impairment of motor control as demonstrated by the following impairment level findings: 1. Limitation of joint range of motion in B shoulders 2. Mild limitation with activity tolerance due to body habitus and recent diagnosis Patient is assessed as a [id number] moderate complexity based on the following: History: Patient is a 39-year-old male with past medical history significant for fascioscapulohumeral muscular dystrophy with diagnosis of acute on chronic hypoxemia, asthma exacerbation, and tobacco dependence. Examination:Demonstrable impairment in strength, balance, and range of motion with underlying impairments and functional limitations as documented above Presentation:Evolving Decision Makin moderate complexity Goals: N/A. Patient is evaluation only. Plan of Care/Treatment Plan: N/A. Patient is evaluation only. DISCHARGE RECOMMENDATIONS: No equipment needs at this time. Patient is considering consulting with application security consultant and field sales trainer for weight reduction. TREATMENT CODE/TIME: 66911 x 25 minutes beginning at 1:46 PM. Thank you very much for this referral. Jocelyn Lopez PT, DPT, CLT [facility]
[2019-05-11] MEDS: Furosemide 20 MG/2 ML VIAL IVP (16:28)
[2019-05-12] VITALS (150 sets, daily range): BP systolic 122–153; BP diastolic 70–106; PULSE 60–134; RESP 9–30; TEMP 36.5–37.1; O2SAT 74–98
[2019-05-12] MEDS: Enoxaparin 40 MG/0.4 ML SYR SC (05:53)
[2019-05-12 07:17] LABS: Calcium 8.3 mg/dL (8.5-10.1); Chloride 101 mmol/L (98-107)
[2019-05-12 07:38] LABS: Anion Gap 5.1 mmol/L (3-11); BUN 21 mg/dL (7-18); CO2 33.9 mmol/L (21.0-32.0); Glucose 105 mg/dL (74-106); Magnesium 2.3 mg/dL (1.8-2.4); Sodium 140 mmol/L (136-145)
[2019-05-12] MEDS: predniSONE 20 MG TAB 40 MG PO (08:16)
--- NOTE | 2019-05-12 08:26 | W.PM.PROGNOT ---
Date of Service Date of service: 05/12/19 Time of Service: 08:26 Assessment and Plan Assessment and plan (1) Acute on chronic respiratory failure with hypoxia and hypercapnia: Status: Acute Assessment and plan: This is likely multifactorial. (JOHANNE/OHS/muscular dystrophy/pulmonary hypertension/PFT's without evidence of response to bronchodilators - COPD less likely; no clear acute bronchitis at this time). Continue BiPAP qHs in the ICU until we can get a trilogy machine (awaiting insurance activation). Finish steroids. (2) V-tach: Status: Acute Assessment and plan: While awake, but undergoing titration of oxygen/BiPAP. Evaluated by cardiology. No evidence of cardiomyopathy on echo. 30 day event monitor on discharge as well as cardiology follow up. No BB at this time. Keep on tele. (3) Acute respiratory acidosis: Status: Resolved Assessment and plan: as above (4) CO2 narcosis: Status: Resolved Assessment and plan: As above (5) Pulmonary hypertension: Status: Acute Assessment and plan: Due to long-standing respiratory failure. Need to treat respiratory failure. Also, volume status becomes important to monitor - will give lasix x1 IV at this time as appears slightly fluid overloaded. (6) Secondary polycythemia: Status: Chronic Assessment and plan: Due to smoking/chronic hypoxia with pulmonary hypertension/JOHANNE/OHS. I expect this to improve with treatment of underlying respiratory issues. If he fails to improve, then I would initiate a workup for polycythemia vera, but at this time the clinical suspicion for secondary polycythemia is very high. Will need outpatient follow up. (7) Fascioscapulohumeral muscular dystrophy: Status: Chronic Assessment and plan: As above - up to 10% of patients do end up having restrictive lung disease. Otherwise, it had been stable, as per Dr Lam's note earlier this year. Concern for cardiac conduction issues - will need cardiac monitoring - 30 days - on discharge. (8) Steroid-induced hyperglycemia: Status: Acute Assessment and plan: In addition to prediabetes. Working with diabetes education. Covering with SSI here; titrating steroids down. (9) Obesity, morbid, BMI 40.0-49.9: Status: Chronic Assessment and plan: Very high clinical suspicion for JOHANNE/OHS. Would benefit from weight loss. (10) Prediabetes: Status: Acute Assessment and plan: as above. metformin may not be a good drug due to lactic acidosis - will discuss with pharmacy. (11) Tobacco dependence: Status: Chronic Assessment and plan: Provide nicotine replacement. Advised to quit smoking. (12) Subclinical hypothyroidism: Status: Acute Assessment and plan: Will need outpatient follow up - no inidication for initiation of treatment at this time. (13) DVT prophylaxis: Status: Acute Assessment and plan: Lovenox SC (14) Discharge planning issues: Status: Acute Assessment and plan: Keep in ICU Full code Plan for discharge home once has insurance coverage for Trilogy Dante is a patient under my care for many complex medical issues, as above. Dante would benefit from the usage of NIV via the Triology in his home to treat his Chronic Respiratory Failure with hypoxia and hypercapnia due to COPD, pulmonary hypertension, and facioscapular muscular dystrophy. Dante is currently utilizing our Drager Gaby, current settings are 20/10 with a BR of 6; patient is feeling relief and CO2 is slowly decreasing as shown in the attached blood gasses. The Trilogy will allow for AVAPs-AE setting, which will provide optimal benefits for his inevitable worsening respiratory status and will meet his current ventilation needs including a varying tidal volume and minute ventilation based on his ideal weight, decrease his work of breathing, decrease CO2 retention, and increase his oxygenation, as well as reduce flow limitations, prevent air trapping and breath stacking. This will improve his overall quality of life and reduce further hospitalizations that may occur without proper treatment. NIV via the Trilogy will also allow a secondary mode MPV/PC. This will allow the patient to use this device during the day for shortness of breath with a [employer] and a mouth piece adapter. As a treating provider for this patient, it is medically necessary that he use the NIV therapy via the Trilogy Non-Invasive ventilator. The trilogy also operates on a battery which will allow for continued usage during power outages as a lapse in usage or interruption in ventilation may lead to life-threatening consequences. This is extremely important as he will depend on the usage of this equipment on and off through the waking hours in addition to nocturnally. Subjective Subjective Interval history since last seen: Desatted down to 70's on bIpap - better with adjustment of mask - improved. ?Wheezes this morning. No insurance still - unable to discharge patient home without the Trilogy as he could from hypercapnia. Denies dizziness, chest pain, shortness of breath, nausea, vomiting. When walking with RT, O2 sats fell down to 88% on RA, HR went up to 130's. Per cardiology, will need a cardiac event recorder on discharge. Exam Narrative Exam Narrative: General: Obese male wide awake, A&OX3, walking around the ICU room, not in distress, not short of breath HEENT: EOMI, MMM Heart: RRR, no m/r/g Lungs: CTAB Abdomen: soft, obese Extremities: trace BLE edema, no c/c. Objective Objective Clinical Data: Abnormal lab results 05/12/19 Range/Units 06:08 Carbon Dioxide 33.9 H (21.0-32.0) mmol/L BUN 21 H (7-18) mg/dL Calcium 8.3 L (8.5-10.1) mg/dL Vital Signs Temperature 37.1 C 05/12/19 07:33 Temperature Source Temporal Artery Scan 05/12/19 07:33 Pulse 75 05/12/19 07:42 Pulse Rhythm Regular 05/12/19 04:08 Pulse 84 05/12/19 08:00 Respiratory Rate 16 05/12/19 08:05 Respiratory Effort 05/12/19 08:05 Respiratory Depth Normal 05/12/19 08:05 Respiratory Pattern Normal 05/12/19 08:05 Blood Pressure 143/86 H 05/12/19 07:42 Blood Pressure Mean 100 05/12/19 07:42 Blood Pressure Position Supine 05/11/19 03:28 Pulse Oximetry 96 05/12/19 08:09 Oxygen Delivery Method Room Air 05/12/19 08:09 Oxygen Flow Rate 0 05/12/19 08:09 Fraction of Inspired Oxygen (FIO2) 26 05/12/19 08:09 Pain Level 0 05/12/19 07:33 Comment 05/12/19 07:33 Intake & Output 05/11/19 05/11/19 05/12/19 11:59 23:59 11:59 Intake Total 360 / 1370 1010 / 1370 Output Total 700 / 700 1000 / 1000 Balance -340 / 670 1010 / 670 -1000 / -1000 Weight 156.1 kg 158 kg Intake: IV Oral 360 / 1360 1000 / 1360 Output: Urine 700 / 700 1000 / 1000 Other: Urine Color Yellow Yellow Urine Appearance Clear Clear Urine Odor None None Comment Patient voided in toilet. Unable to obtain output. Stool Occult Blood Negative Stool Size Large Stool Characteristics Soft Formed Brown Voiding Methods Toilet Urinal Laboratory Results WBC 10.60 k/cumm (4.4-10.8) 05/11/19 06:45 RBC 6.54 m/cumm (4.50-6.00) H 05/11/19 06:45 Hgb 18.7 g/dL (13.5-17.5) H 05/11/19 06:45 Hct 59.9 % (40.0-50.0) H* 05/11/19 06:45 MCV 91.6 fL (80-95) 05/11/19 06:45 MCH 28.6 pg (27.0-33.0) 05/11/19 06:45 MCHC 31.2 g/dL (32.0-36.0) L 05/11/19 06:45 RDW 17.1 % (11.8-14.1) H 05/11/19 06:45 Plt Count 155 x1000/uL (130-400) 05/11/19 06:45 MPV 12.4 fL (8.0-11.0) H 05/11/19 06:45 Immature Gran % 0.2 05/11/19 06:45 Neutrophils % 89.4 05/11/19 06:45 Band Neutrophils % Polls Or Surveys Interviewer 05/10/19 06:00 Lymphocytes % 4.0 05/11/19 06:45 Atypical Lymphs % Polls Or Surveys Interviewer 05/10/19 06:00 Monocytes % 6.4 05/11/19 06:45 Eosinophils % 0.0 05/11/19 06:45 Basophils % 0.0 05/11/19 06:45 Metamyelocytes % Polls Or Surveys Interviewer 05/10/19 06:00 Myelocytes % Polls Or Surveys Interviewer 05/10/19 06:00 Promyelocytes % Polls Or Surveys Interviewer 05/10/19 06:00 Absolute Neutrophils 9.48 k/cumm (1.2-6.7) H 05/11/19 06:45 Absolute Lymphocytes 0.42 k/cumm (1.2-3.4) L 05/11/19 06:45 Absolute Monocytes 0.68 k/cumm (0.11-0.7) 05/11/19 06:45 Absolute Eosinophils 0.00 k/cumm (0.0-0.7) 05/11/19 06:45 Absolute Basophils 0.00 k/cumm (0.0-0.2) 05/11/19 06:45 Nucleated RBCs Polls Or Surveys Interviewer 05/10/19 06:00 Differential Comment Rbc morph reviewed 05/11/19 06:45 Other Cell Type Polls Or Surveys Interviewer 05/10/19 06:00 RBC Morphology See below 05/11/19 06:45 Polychromasia Present 05/11/19 06:45 Hypochromasia Polls Or Surveys Interviewer 05/10/19 06:00 Poikilocytosis Polls Or Surveys Interviewer 05/10/19 06:00 Basophilic Stippling Polls Or Surveys Interviewer 05/10/19 06:00 Anisocytosis Polls Or Surveys Interviewer 05/10/19 06:00 Microcytosis Polls Or Surveys Interviewer 05/10/19 06:00 Macrocytosis Polls Or Surveys Interviewer 05/10/19 06:00 Spherocytes Polls Or Surveys Interviewer 05/10/19 06:00 Target Cells Polls Or Surveys Interviewer 05/10/19 06:00 Tear Drop Cells Polls Or Surveys Interviewer 05/10/19 06:00 Ovalocytes Polls Or Surveys Interviewer 05/10/19 06:00 Stomatocytes Polls Or Surveys Interviewer 05/10/19 06:00 [place] Bodies Polls Or Surveys Interviewer 05/10/19 06:00 Good Cells Polls Or Surveys Interviewer 05/10/19 06:00 Acanthocytes (Spur) Polls Or Surveys Interviewer 05/10/19 06:00 Schistocytes Polls Or Surveys Interviewer 05/10/19 06:00 PT 11.6 sec (9.3-11.0) H 05/08/19 21:10 INR 1.2 (0.9-1.1) H 05/08/19 21:10 APTT 26.1 sec (21.0-31.4) 05/08/19 21:10 Sample Site Right radial 05/09/19 11:30 pCO2 46 mmHg (34-47) 05/09/19 11:30 pO2 97 mmHg (83-108) 05/09/19 11:30 O2 Saturation 98 % (94-98) 05/09/19 11:30 ABG pH 7.51 (7.35-7.45) H 05/09/19 11:30 ABG HCO3 37 mmol/L (22-28) H 05/09/19 11:30 ABG Total CO2 30 mmol/L (22-29) H 05/09/19 11:30 ABG Base Excess 13.6 mmol/L (-3-3) H 05/09/19 11:30 VBG pH 7.35 (7.32-7.43) 05/09/19 01:20 VBG pCO2 73 mm/Hg (34-47) H 05/09/19 01:20 VBG pO2 47 mm/Hg (28-44) H 05/09/19 01:20 VBG HCO3 40 mmol/L (22-28) H 05/09/19 01:20 VBG Total CO2 34 mmol/L (22-29) H 05/09/19 01:20 VBG O2 Saturation 83 % (70-80) H 05/09/19 01:20 VBG Base Excess 14.5 mmol/L (-3-3) H 05/09/19 01:20 Oxygen Liter Flow Bipap 30/5 L 05/09/19 11:30 FiO2 40% % 05/09/19 11:30 Sodium 140 mmol/L (136-145) 05/12/19 06:08 Potassium 4.0 mmol/L (3.5-5.1) 05/12/19 06:08 Chloride 101 mmol/L (98-107) 05/12/19 06:08 Carbon Dioxide 33.9 mmol/L (21.0-32.0) H 05/12/19 06:08 Anion Gap 5.1 mmol/L (3-11) 05/12/19 06:08 BUN 21 mg/dL (7-18) H 05/12/19 06:08 Creatinine 0.70 mg/dL (0.70-1.30) 05/12/19 06:08 Estimated GFR/1.73 m2 >= 60.00 (mL/min/1.73m2) 05/12/19 06:08 Glucose 105 mg/dL (74-106) D 05/12/19 06:08 Hemoglobin A1c 6.4 % (4.5-6.2) H 05/09/19 06:37 Lactate 3.0 mmol/L (0.6-1.4) H* 05/11/19 06:45 Calcium 8.3 mg/dL (8.5-10.1) L 05/12/19 06:08 Magnesium 2.3 mg/dL (1.8-2.4) 05/12/19 06:08 Iron 16 ug/dL (65-175) L 05/10/19 05:35 TIBC 394 ug/dL (250-450) 05/10/19 05:35 Transferrin % Sat 4 % (20-55) L 05/10/19 05:35 Ferritin 17 ng/mL (26-388) L 05/10/19 06:00 Total Bilirubin 0.7 mg/dL (0.2-1.0) 05/11/19 06:25 Conjugated Bilirubin 0.21 mg/dL (0.00-0.20) H 05/11/19 06:25 AST 18 U/L (15-37) 05/11/19 06:25 ALT 86 U/L (16-63) H 05/11/19 06:25 Alkaline Phosphatase 58 U/L (46-116) 05/11/19 06:25 Troponin I < 0.05 ng/Ml (<0.06) 05/10/19 07:15 NT-Pro-B Natriuret Pep 263 pg/mL (<300) 05/08/19 21:10 Total Protein 6.5 g/dL (6.4-8.2) 05/11/19 06:25 Albumin 3.1 g/dL (3.4-5.0) L 05/11/19 06:25 Triglycerides 54 mg/dL (<150) 05/10/19 06:00 Total Cholesterol 111 mg/dL (<200) 05/10/19 06:00 LDL Cholesterol, Calc 75 mg/dL 05/10/19 06:00 HDL Cholesterol 26 mg/dL (40-60) L 05/10/19 06:00 Procalcitonin 0.1 ng/mL 05/09/19 10:20 TSH 5.70 uIU/mL (0.36-3.74) H 05/08/19 21:10 Free T4 1.02 ng/dL (0.76-1.46) 05/08/19 21:10 Urine Color Yellow (Yellow) 05/09/19 Unknown Urine Clarity Clear (Clear) 05/09/19 Unknown Urine pH 6.0 (5-8) 05/09/19 Unknown Ur Specific [place] 1.025 (1.005-1.025) 05/09/19 Unknown Urine Protein Negative mg/dL (Negative) 05/09/19 Unknown Urine Ketones Negative mg/dL (Negative) 05/09/19 Unknown Urine Blood Trace-intact (Negative) H 05/09/19 Unknown Urine Nitrite Negative (Negative) 05/09/19 Unknown Urine Bilirubin Negative (Negative) 05/09/19 Unknown Urine Urobilinogen 0.2 EU/dL (Up TO 0.2) 05/09/19 Unknown Ur Leukocyte Esterase Negative (Negative) 05/09/19 Unknown Urine RBC 3-5 HPF (0-2) H 05/09/19 Unknown Urine WBC 3-5 HPF (0-5) 05/09/19 Unknown Ur Epithelial Cells Negative HPF (Negative) 05/09/19 Unknown Urine Crystals Negative HPF (Negative) 05/09/19 Unknown Urine Bacteria Few HPF (Negative) 05/09/19 Unknown Urine Casts Negative LPF (Negative) 05/09/19 Unknown Urine Mucus Moderate (Negative) 05/09/19 Unknown Ur Culture Indicated? Yes 05/09/19 Unknown Urine Glucose 100 mg/dL (Negative) 05/09/19 Unknown Urine Opiates Screen Negative (Negative) 05/09/19 Unknown Urine Methadone Screen Negative (Negative) 05/09/19 Unknown Ur Barbiturates Screen Negative (Negative) 05/09/19 Unknown Ur Tricyclics Screen Negative (Negative) 05/09/19 Unknown Ur Amphetamines Screen Negative (Negative) 05/09/19 Unknown U Benzodiazepines Scrn Negative (Negative) 05/09/19 Unknown Urine Cocaine Screen Negative (Negative) 05/09/19 Unknown Ur THC Screen Negative (Negative) 05/09/19 Unknown
[2019-05-12] MEDS: Pantoprazole 40 MG VIAL IVP (10:05)
[2019-05-12] MEDS: Normal Saline Flush 10 ML SYR IVP (10:06)
--- NOTE | 2019-05-12 13:55 | W.NUTCONSULT ---
Date of service: 05/12/19 Time of Service: 13:55 Nutritional Consult ASSESSMENT: Appreciate diabetes consult for Mr. Powers who is hospitalized with acute on chronic respiratory failure here taking prednisone causing hyperglycemia. BMI 46 A1c 6.4 Met with Mr. Finley who admits he has many lifestyle changes to make to regain his health. 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 He is also a smoker. Plan is for discharge this morning. NUTRITIONAL DIAGNOSIS: Obesity related to overconsumption of calories and inadequate physical activity as evidenced by BMI 46 INTERVENTION: Discussed Dante's goals for his health. He is attempting to make many lifestyle changes at one time. States he has attempted weight loss and healthy eating in the past, but gets bored with it after a few weeks and goes back to his old pattern of eating. Discussed mindful eating practices of hunger/fullness; taking 20 minutes to eat a meal; start with normal portions; triggers for overeating. Discussed identifying healthier choices. Reviewed food guide for diabetes as a way to see food choices for easier meal planning and he feels he can work with this. MONITORING AND EVALUATION: Dante wishes to follow the food guide for portions, distribution of foods; choosing foods that are more satisfying when hungry. He will slow down how fast he eats meals; wait for hunger to have a between meal snack. We will be in touch in 2 weeks for follow up. Time Spent in Nutritional Counseling and Treatment: 25 minutes face to face in 2 separate visits
[2019-05-12] MEDS: Nicotine 21 MG/24 HR PATCH TD (14:07)
[2019-05-12 17:46] LABS: Path Consult (Tech Order) C
--- NOTE | 2019-05-12 17:55 | CMPROGNOTE_ITS ---
- If Service Date Differs Date of service: 05/12/19 Time of Service: 17:55 Care Management Progress Note S/O: Dante was sitting up in his chair when CM met with him. He was engaged and pleasant in conversation. He stated that he is feeling much better than when he arrived at [facility]. CM discussed insurance needs with him regarding the equipment recommended for him to return home with. CM obtained consent for Jennifer to communicate with [facility]. CM sent referral to Jennifer, and followed up several times. Jennifer responded, stating that his pharmacy coverage is active beginning today, but the remainder of his health insurance will not be active until 05/13/2019. CM will call to verify that his coverage is active on 05/13/2019. Once he has coverage, Edwige from [facility] will deliver the Trilogy machine that he needs at home. CM will also call [facility] in [facility] ([phone]) to inquire whether or not he can transfer to the [facility] office. CM will continue to follow. A: Dante is a 39 year old male admitted to [facility] with Asthma with Hypoxemia P: Anticipate Dante will return home with a 30 day event monitor as well as a Trilogy machine from [facility] when medically ready. His girlfriend, Kenzie will drive him home via private vehicle when ready. He will have follow up appointments, as recommended by provider. Referrals made to [facility] and Jennifer, as well as a new PCP at local office. CM will continue to follow and support discharge planning considerations.
[2019-05-13] VITALS (24 sets, daily range): BP systolic 131–133; BP diastolic 68–117; PULSE 70–95; RESP 14–41; TEMP 36.6–37.3; O2SAT 88–96
--- NOTE | 2019-05-13 00:01 | CER_ITS ---
Date of service: 06/15/19 Time of Service: 08:43 Cardiac Event Recorder Cardiac Event Note: This is a 30-day event recorder ordered for the indication of ventricular tachycardia. ?The patient was in normal sinus rhythm for the majority of the recording time. ?There were no episodes of atrial fibrillation recorded. ?Patient had 2 symptomatic episodes both associated with sinus rhythm or sinus tachycardia. ?There were no episodes of ventricular tachycardia, pauses greater than 3 seconds or evidence of high degree heart block. CC: Dictated by: MAYO GRAY MD Dictated:: [id number] <Electronically signed by Mayo Gray M.D.> 06/15/1945 Transcribed Date: 06/15/19 Transcribed Time: 841By: EUGENIE THIS REPORT WAS ORIGINALLY PUT ON THE WRONG ACCOUNT. IT HAS BEEN CUT AND PASTED TO THE CORRECT V#.
--- NOTE | 2019-05-13 06:41 | NUR.NOTE ---
Pt declined to allow me to place telemetry back on him post shower this morning. He did not want to get sticky. He is ready to be discharged. Nursing Note:
[2019-05-13] MEDS: Nicotine 21 MG/24 HR PATCH TD (07:49)
[2019-05-13] MEDS: Pantoprazole 40 MG VIAL IVP (10:46)
[2019-05-13] MEDS: Normal Saline Flush 10 ML SYR IVP (10:47)
--- NOTE | 2019-05-13 11:50 | W.PM.DS.N ---
Date of service: 05/13/19 Time of Service: 11:51 DS: Diagnosis Discharge Diagnosis (1) Acute on chronic respiratory failure with hypoxia and hypercapnia: Status: Acute (2) V-tach: Status: Resolved (3) Acute respiratory acidosis: Status: Resolved (4) CO2 narcosis: Status: Resolved (5) Pulmonary hypertension: Status: Chronic (6) Secondary polycythemia: Status: Chronic (7) Fascioscapulohumeral muscular dystrophy: Status: Chronic (8) Steroid-induced hyperglycemia: Status: Resolved (9) Prediabetes: Status: Chronic (10) Obesity, morbid, BMI 40.0-49.9: Status: Chronic (11) Tobacco dependence: Status: Chronic (12) Subclinical hypothyroidism: Status: Chronic Discharge Plan Disposition Patient Disposition: HOME Condition: Stable Discharge Details Chief Complaint: GenMedical Clinical Impression: Diffuse wheezing, Hypoxia Reason For Visit: EXACERBATION ASTHMA WITH HYPOXEMIA Admit Date/Time: 05/08/19 22:50 Admit Provider: Mayo Franks Attending Provider: Mayo Franks Primary Care Provider: Ankush Zambrano ED Provider: Bharathi Wilson Hospital Course Hospital Course: Mr Powers is a 39 year old male with PMHx of fascioscapulohumeral muscular dystrophy as well as obesity with BMI of 47 and tobacco abuse, who was admitted to [facility] medical surgical service and moved to the ICU shortly after for acute respiratory acidosis with CO2 narcosis due to acute on chronic respiratory failure, both hypoxic and hypercapnic, which is multifactorial in this patient (due to mulscular dystrophy, OHS, likely JOHANNE based on apneic episodes observed, pulmonary hypertension, and question of mild acute bronchitis). He completed his steroid taper at the hospital, but we are not convinced he truly had acute bronchitis. His PFT's showed minimal response to bronchodilators. The patient was treated with BiPAP therapy with immediate improvement in mentation, pH, O2 sats. During the day, his oxygen requirement is room air. When ambulating, his oxygen saturation drops very briefly to exactly 88%, but does not stay there - recovers immediately. Based on the history of CO2 retention and lack of symptoms with the O2 sat of 88%, as well as the fact that this level of hypoxia is not sustained, on discharge the decision was made not to discharge the patient on oxygen during the day or with ambulation. At night, while in the hospital, BiPAP was used and setting titrated - however, on discharge the patient will be going home with Trilogy. It is recommended he have a sleep study as outpatient, and a pulmonology referral is being sent to [facility]. He is encouraged to and motivated to quit smoking and will be discharged home with nicotine patches. Additionally, during his hospitalization, the patient had an episode of 28 beats of symptomatic Vtach. His echocardiogram revealed LVEF of 55-60%, moderate pulmonary hypertension with RVSP of 38-46 mmHg. He was evaluated by cardiology - due to an increased predisposition for cardiac conduction abnormalities in some types of muscular dystrophy (not strongly so with the patient's type, however), a 30 day event monitor is recommended as the patient is usually symptomatic of his Vtach. He will require cardiology follow up. Finally, the patient does have prediabetes with an A1C of 6.4. During the hospitalization, he had steroid-induced hyperglycemia, temporarily managed with SSI, but he will be discharged home with januvia, recommendations for lifestyle changes and weight loss. We are unable to send him home with metformin due to his lactic acidosis, which was likely acute on chronic due to work of breathing and hypoxia in this patient. The patient is being set up with PCP on discharge and will hopefully be seen by one within 1 week. He is medically stable for discharge home today with a trilogy machine to be used at night and with nebs. He has received counseling on the use of trilogy prior to discharge from the hospital. Care for patient as well as completion of his discharge summary on day of discharge took 45 minutes. Home Meds and New Rx's Prescriptions: New nicotine 21 mg/24 hr Patch 24 Hour 21 mg transdermal DAILY PRN PRNQty: 30 RF: 0 Januvia 100 mg tablet 100 mg PO DAILY Qty: 30 RF: 0 Continued ibuprofen 200 MG capsule 400 mg PO TID RF: 0 acetaminophen [Tylenol] 325 MG tablet 325 mg PO Q4H PRN RF: 0 Discharge Instructions Instructions: Sitagliptin (By mouth), Sleep Apnea (DC), How to Stop Smoking (DC), Meal Planning with Diabetes Exchanges (DC), Polysomnography (DC), Prediabetes (DC) Additional Instructions: Return to the hospital with any fever, bleeding, chest pain, shortness of breath, altered mental status. You must stop smoking! Always wear your trilogy when you sleep - at night or with naps. Follow up with PCP in 1 week. Make your best effort to lose weight - 1-2 lbs/week - by changing your diet and incorporating aerobic exercise into your routine. APPOINTMENT PCP: [facility] May 25, 4pm; arrive 15 minutes prior Care Plan Goals: Home with trilogy Referrals: PULMONOLOGY,[facility] [OTHER] - SLEEP CLINIC,[facility] [OTHER] - Mayo Gray MD [MD CONSULTING PHYSICIAN] - Activity:: Activity as Tolerated Equipment/Supplies:: Trilogy machine Diet:: Carb Counting Discharge Orders Discharge Orders: Discharge Order (Routine); Ordered 05/13/19 Ordered By: Venessa Mendez Other Ambulatory Orders: Cardiac Event Recorder (Outpt) (ONCE) Timeframe: [id number] Facility: [facility] - Location: Respiratory Therapy Ordered By: Venessa Mendez DS: Summary Status at Discharge Functional status at discharge: independent ambulation Overall status at discharge: patient is back to baseline Mental Status: mental status grossly normal Speech and Movement: speech and movement normal Mood: congruent mood Affect: normal affect Exam Narrative Exam Narrative: General: Obese male wide awake, A&OX3, having no dyspnea/tachypnea on room air, able to speak in lengthy sentences. HEENT: EOMI, MMM, facial plethora/redness Heart: RRR, no m/r/g Lungs: CTAB Abdomen: soft, obese Extremities: trace BLE edema, no c/c. Psych Mental Status: mental status grossly normal Speech and Movement: speech and movement normal Mood: congruent mood Affect: normal affect DS: Data Vitals/I&O Vitals and I&O: Vital Signs Temperature 36.8 C 05/13/19 07:36 Temperature Source Temporal Artery Scan 05/13/19 07:36 Pulse 79 05/13/19 09:44 Pulse Rhythm Regular 05/12/19 07:33 Pulse 80 05/13/19 09:44 Respiratory Rate 19 05/13/19 09:44 Respiratory Effort Non-Labored 05/13/19 08:07 Respiratory Depth Normal 05/13/19 08:07 Respiratory Pattern Normal 05/13/19 08:07 Blood Pressure 131/78 05/13/19 09:44 Blood Pressure Mean 88 05/13/19 09:44 Blood Pressure Position Supine 05/13/19 03:10 Pulse Oximetry 90 L 05/13/19 09:44 Oxygen Delivery Method Room Air 05/13/19 08:07 Oxygen Flow Rate 0 05/13/19 08:07 Fraction of Inspired Oxygen (FIO2) 26 05/13/19 08:04 Pain Level 0 05/13/19 07:53 Comment 05/12/19 07:33 Intake & Output 05/12/19 05/12/19 05/13/19 11:59 23:59 11:59 Intake Total 730 / 2140 1410 / 2140 1200 / 1200 Output Total 1000 / 1000 Balance -270 / 1140 1410 / 1140 1200 / 1200 Weight 158 kg 157.2 kg Intake: IV Oral 720 / 2130 1410 / 2130 1200 / 1200 Output: Urine 1000 / 1000 Other: Urine Color Yellow Urine Appearance Clear Urine Odor None Comment Pt has been going into the med/surg floor bathroom to void. States he goes a lot no void yet this shift. pt uses bathroom to void. reports no concerns regaurding urination. Stool Occult Blood Negative Stool Size Large Stool Characteristics Soft Formed Brown Voiding Methods Urinal Toilet Data Completed and Pending Completed studies during hospitalization [Text1]: CTA chest 05/08/19: No evidence of pulmonary embolism, thoracic aortic dissection or aneurysm. 2D echo 05/11/19: This is a technically limited study. Left Ventricle : The left ventricle is normal size. Mild left ventricular hypertrophy. LV diastolic function is indeterminate. The left ventricular systolic function is normal. The left ventricular ejection fraction is within the normal range. Cannot adequately visualize all wall segments due to technical limitations. LVEF is estimated to be 55-60%. Right Ventricle : The right ventricle is mildly dilated. The right ventricular systolic function is normal. Atria : Left atrium is mildly dilated. Right atrium is mildly dilated. Aortic Valve : Aortic valve is probably trileaflet. There is no aortic valvular stenosis. No aortic regurgitation was seen. Mitral Valve : The mitral valve appears normal in structure. No evidence of mitral valve stenosis. Tricuspid Valve : Tricuspid valve is not well visualized. Great Vessels : The aortic root is normal in size. The ascending aorta size is normal. The IVC is dilated but collapses. Estimated RVSP is 38-46 mmHg. There is no prior echocardiogram available for comparison. Labs on day of discharge: Labs from last 24 hours 05/11/19 06:45 Path Cons Comment C Preliminary micro results at discharge 05/11/19 06:30 Sputum Culture - Preliminary Sputum - Expectorated Normal [place] [facility] Medical History Fascioscapulohumeral muscular dystrophy (Chronic 10/25/15) Family History Other Adopted Social History Smoking/Tobacco Use Status: Current every day Tobacco Type: cigarettes Alcohol Intake: current Alcohol Intake frequency: holidays/special occasions only Alcohol type: beer Drug use: Occasionally Substance use type: marijuana Details: last smoked marijuana 2 weeks ago. 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 He did not complete high school. He has 2 daughters who live with their mother; ages 8 and 10.
--- NOTE | 2019-05-13 18:55 | PDOC.CMDIS ---
- If Service Date Differs Date of service: 05/13/19 Time of Service: 18:55 LACE Index Scoring Tool - Questions: Length of Stay (in days): 4 - 6 Acuity (Admit via E.D.?): Yes E.D. Visits: 1 - Answers: Total Score: 8 Risk of Readmission: Low Risk Care Management Discharge Reason for Hospitalization: Exacerbation asthma with hypoxemia. Discharge Plan: Dante will return home with a 30 day heart monitor and new Trilogy machine from [facility], coordinated by RT. CM sent referrals to [facility] and [facility], who will follow him in the community. CM was successful in transferring his PCP to a local office, [facility] in [facility], where he will follow up. He will also follow up with the sleep clinic, pulmonology at [facility], and Cardio. His girlfriend, Kenzie, will drive him home. Patient/Family Education Needs: Review discharge instructions regarding new equipment and activity levels, discussion of self care needs including Ask Me Three Services Needed at Discharge: DME Agency ([facility]), [facility]
--- NOTE | 2019-05-14 11:10 | PFT_ITS ---
DATE OF SERVICE: MAY 11, 2019 REQUESTING PROVIDER: Ranjan FALL SPIROMETRY: SHOWS MODERATELY SEVERE OBSTRUCTIVE AIRWAYS DISEASE. NO BRONCHODILATOR RESPONSE. IMPRESSION: MODERATELY SEVERE OBSTRUCTIVE AIRWAYS DISEASE, NO BRONCHODILATOR RESPONSE. CLINICAL CORRELATION IS RECOMMENDED.
== END 2019-05-13 13:55 | disposition home or self-care (01) | DRG 189 ==
LOC: ER 22:56 → MS 23:49 → ICU 05-09 11:21 → MS 05-13 11:35 → ICU 05-13 11:56 → MS 05-19 14:19
PROVIDERS: Admitting Provider Family Medicine; Emergency Provider Emergency Medicine; PCP Internal Medicine; Visit Provider Internal Medicine
DX: J96.22 Acute and chronic respiratory failure with hypercapnia (principal); I47.2 Ventricular tachycardia; E87.2 Acidosis; Z68.42 Body mass index [BMI] 45.0-49.9, adult; E66.2 Morbid (severe) obesity with alveolar hypoventilation; J96.21 Acute and chronic respiratory failure with hypoxia; F17.210 Nicotine dependence, cigarettes, uncomplicated; I27.20 Pulmonary hypertension, unspecified; D75.1 Secondary polycythemia; G71.02 Facioscapulohumeral muscular dystrophy; R73.03 Prediabetes; R73.9 Hyperglycemia, unspecified; T38.0X5A Adverse effect of glucocorticoids and synthetic analogues, initial encounter; E02 Subclinical iodine-deficiency hypothyroidism; Z23 Encounter for immunization
CPT/HCPCS: 36415; 71275; 80048; 80053; 80061; 80076; 80307; 82805; 84145; 85027; 93005; 93270; 94060; 94618; 94640; 96360; 97162; 99220; 99232; 99233; 99239; 99255; 99285; 99291; J1650; 36600; 81003; 81015; 82728; 83036; 83540; 83550; 83605; 83735; 83880; 84439; 84443; 84484; 85025; 85610; 85730; 87070; 87086; 87205; 93010; 93306; 94660; 99223; 99226; G0378; J1941; J2930; J3490; J7512; J7613; J7620

== ENCOUNTER 2019-05-12 16:35 | Outpatient (RCR) | payer MEDICAID, SELFPAY ==
--- NOTE | 2019-05-13 12:17 | PDOC.VHC_ITS ---
Consult Notes: AYESHA at [facility] sent referal for CHW to check into pt bonilla. AYESHA sent a [facility] release. CHW called [facility] and spoke with eligibility who stated that pt did the renewal however noone enrolled pt into his bonilla plan. Mohamud at [facility] eligibility enrolled pt and expedited the pharmacy piece so pt culd get his medication. CHW called CM and samra them that pt pharmacy will be active in a few minutes however pt actually need the medical piece to be active as well for equipment that was needed for pt to be able to get. CHW called eaarly Sat to let them know that pt full medicaid is active
--- NOTE | 2019-05-14 09:30 | COCO.CNN ---
Primary Reason for Visit Insurance Referral to Care Coordination Referral to Care Coordination: No Referral to Services: No - Referral From Referral From: Self [facility] Self Management Plan Complete?: Yes Confidence Level (enter 1-10): 7 (CM will contact CHW should there be a problem with pt SID)
--- NOTE | 2019-05-21 08:43 | COCO.CNN ---
Primary Reason for Visit Insurance Referral to Care Coordination Referral to Care Coordination: No Referral to Services: No - Referral From Referral From: [facility] (ED) Care Plan - Plan of Care Assessment/Background: ED nursing care partner reached out to CHW regarding referral for insurance supports. Patients insurance is showing inactive- need active to discharge. Patient completed renewal last week- not processed or active yet. Connected with [facility] navigator. Plan of Care: [facility] plans to work with patient and ED to address insurance concerns. [facility] Self Management Plan Complete?: Yes Action Plan/Progress: see plan of care
== END 2019-06-09 23:59 | disposition home or self-care (01) ==
LOC: COCO 16:35
PROVIDERS: PCP Internal Medicine; Visit Provider Internal Medicine
DX: R69 Illness, unspecified (principal)
CPT/HCPCS: 93270

== ENCOUNTER 2019-08-04 08:42 | Outpatient (CLI) | payer MEDICAID, SELFPAY | END 2019-08-04 09:02 | PROVIDERS: PCP Internal Medicine; Visit Provider Internal Medicine Cardiovascular Disease | DX: I47.2 Ventricular tachycardia (principal) | CPT/HCPCS: 93005; 93010 ==

== ENCOUNTER 2019-11-16 04:09 | Emergency (ER) | payer MEDICAID, SELFPAY ==
[2019-11-16 04:13] VITALS: BP 180/94; PULSE 105; RESP 15; TEMP 36.2; O2SAT 96
--- NOTE | 2019-11-16 04:22 | ED.GENADUL_ITS ---
Discharge Plan Disposition Patient Disposition: HOME Condition: Stable Discharge Details Chief Complaint: RespSymp Clinical Impression: Depression, Shortness of breath Primary Care Provider: Selena Carias ED Provider: Bharathi Wilson Home Meds and New Rx's Prescriptions: New prednisone 20 mg tablet 60 mg PO DAILY 4 Days Qty: 12 RF: 0 prednisone 20 mg tablet 60 mg PO DAILY 4 Days Qty: 12 RF: 0 No Action nicotine 14 mg/24 hr patch 24 hour 1 patch TD DAILY RF: 0 budesonide-formoterol [Symbicort] 80-4.5 mcg/actuation HFA aerosol inhaler 2 puff IH DAILY RF: 0 acetaminophen [Tylenol] 325 MG tablet 325 mg PO Q4H PRN RF: 0 ibuprofen 200 mg capsule 400 mg PO TID PRNRF: 0 Januvia 100 mg tablet 100 mg PO DAILY Qty: 30 RF: 0 Discharge Instructions Instructions: Depression (ED), Dyspnea (ED) Additional Instructions: your blood work and xray did not show any concerning findings, the shortness of breath is likely due to your sleep apnea and asthma follow up with your primary care provider within a week as well as [facility] Parachute services return to the emergency department if you feel more ill, have worsening shortness of breath or high fevers Medical Decision Making 39 yo male with hx of fascioscapulohumeral muscular dystroph, ilya, former s moker, who comes in with several days of not feeling well and states he wakes up gasping for air in the middle of the night. Denies chest pain/pressure, fevers, rashes, vomit. Denies any recent immobilization. He is not sure if his cpap is functioning correctly or not. He arrives HD stable. No leg swelling or jvd. Very mild apical wheezing, speaking in full sentences. He has no calf pain, no pleur itic chest pain and no hypoxia so doubt PE. No chest pain or pressure so doubt acs, heart score is 3. Will obtain cxr to eval for possible infiltrate and also obtain lab work to evaluate for evidence of anemia and electrolyte abnormalities and monitor. I suspect that his cpap machine is not functioning correctly as he states he primarily wakes up gasping for air while sleeping and this is causing him jose tired and not feel well. pt now states he is certain his cpap machine isn't working. Also now confesses he would like to see mental health as he has had depression since two family members recently. He denies SI/HI and would just like to speak with someone, will consult with aisha. Labs and imaging unremarkable so feel the shortness of breath is due to his ilya, asthma and likely partly psychosomatic from his depression pt spoke with mental health and no si/hi and cleared to go home and will f/u with them today and also advised f/u with pcp within a week, return precautions given Differential Diagnosis Differential Diagnosis: ilya copd, asthma, pna Medical Records Medical records reviewed: Yes I reviewed the patient's medical records. Imaging Data Radiologic Study: Attestation: I personally reviewed and interpreted this imaging study as follows: Imaging: X-Ray Radiologist's impression: no acute findings Lab Data Lab results reviewed: Yes I reviewed the patient's lab results. ECG Data Attestation: I personally reviewed and interpreted this ECG (s) as follows: Prior ECG tracings: available for review Interpretation: sinus rhythm, rate of 88, pr 120, qtc [address] t wave ischemic findings HPI General Mode of arrival: ambulatory . Date/Time Provider Initiated Documentation: 11/16/19 04:11 . Limitations to Documentation: no limitations . Information obtained by: patient . History of Present Illness 39 year old M presents to the emergency department with the chief complaint of not feeling well, described as moderate, and it has been constant. No relieving factors improve symptom(s), No exacerbating factors reported . Patient did receive the following treatments prior to arrival, none Related Data Home Medications Medication Instructions Recorded Confirmed acetaminophen [Tylenol] 325 mg PO Q4H PRN tab-cap 09/26/16 11/16/19 sitagliptin [Januvia] 100 mg PO DAILY #30 tab 05/13/19 11/16/19 budesonide-formoterol HFA 80 2 puff IH DAILY 08/04/19 11/16/19 mcg-4.5 mcg/actuation aerosol inhaler ibuprofen 200 mg capsule 400 mg PO TID PRN tab-cap 08/04/19 11/16/19 nicotine 14 mg/24 hr daily 1 patch TD DAILY 09/28/19 11/16/19 transdermal patch prednisone 60 mg PO DAILY 4 Days #12 tab 11/16/19 prednisone 60 mg PO DAILY 4 Days #12 tab 11/16/19 Previous Rx's Medication Instructions Recorded sitagliptin [Januvia] 100 mg PO DAILY #30 tab 05/13/19 prednisone 60 mg PO DAILY 4 Days #12 tab 11/16/19 prednisone 60 mg PO DAILY 4 Days #12 tab 11/16/19 Allergies Allergy/AdvReac Type Severity Reaction Status Date / Time No Known Allergies Allergy Unverified 08/04/19 10:50 General Stated Complaint: RespSymp [place]: 3 Review of Systems All systems reviewed & are unremarkable except as noted in HPI and below Constitutional Constitutional: Denies chills, Denies fever(s) and Denies weakness Cardiovascular Cardiovascular: Denies chest pain Gastrointestinal Gastrointestinal: Denies abdominal pain, Denies nausea and Denies vomiting Musculoskeletal Musculoskeletal: Denies joint swelling Neurologic Neurologic: Denies weakness Psychiatric Psychiatric: Denies depression [facility] Social History Smoking/Tobacco Use Status: Current every day Tobacco: How many years used: 20 Alcohol Intake: current Alcohol Intake frequency: holidays/special occasions only Alcohol type: beer Drug use: Occasionally Substance use type: marijuana Details: last smoked marijuana 2 weeks ago. 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 He did not complete high school. He has 2 daughters who live with their mother; ages 8 and 10. Exam Const General: no acute distress Orientation: alert [facility] Head: normal to inspection Ears: external ears normal General nose exam: external nose normal Mouth: moist mucous membranes Eyes General: appearance normal, both eyes and all related structures Neck Neck: normal visual inspection Resp Effort & Inspection: normal respiratory effort and able to speak in complete sentences Cardio Rate: regular rate Skin General skin exam: no rashes or lesions noted Neuro General: patient alert and patient oriented x3 Extrem General: normal to inspection Psych Mental Status: mental status grossly normal Course Vital Signs Vital signs: Vital Signs Temperature 36.2 C L 11/16/19 04:13 Pulse 105 H 11/16/19 04:13 Respiratory Rate 15 11/16/19 04:13 Blood Pressure 180/94 H 11/16/19 04:13 Pulse Oximetry 96 11/16/19 04:13 Temperature 36.2 C L 11/16/19 04:13 Pulse 105 H 11/16/19 04:13 Respiratory Rate 15 11/16/19 04:13 Blood Pressure 180/94 H 11/16/19 04:13 Blood Pressure Position Sitting 11/16/19 04:13 Pulse Oximetry 96 11/16/19 04:13 Oxygen Delivery Method Room Air 11/16/19 04:13 Oxygen Flow Rate 0 11/16/19 04:13
[2019-11-16 04:41] LABS: BE (Venous) 0.7 mmol/L (-3-3); HCO3 (Venous) 25 mmol/L (22-28); O2 Sat (Venous) 86 % (70-80); TCO2 (Venous) 22 mmol/L (22-29); pCO2 (Venous) 40 mm/Hg (34-47); pH (Venous) 7.41 (7.35-7.45); pO2 (Venous) 51 mm/Hg (28-44)
[2019-11-16 04:43] LABS: Abs Immature Grans 0.02 k/cumm (0.0-0.09); Absolute Basophil Count 0.02 k/cumm (0.0-0.2); Absolute Eosinophil Count 0.17 k/cumm (0.0-0.7); Absolute Lymphocyte Count 1.74 k/cumm (1.2-3.4); Absolute Monocyte Count 0.72 k/cumm (0.11-0.7); Absolute Neutrophil Count 5.78 k/cumm (1.2-6.7); Basophils % 0.2; HCT 47.6 % (40.0-50.0); HGB 16.6 g/dL (13.5-17.5); Immature Grans % 0.2 %; Lymphocytes % 20.6; Mean Corp. HGB Concentration 34.9 g/dL (32.0-36.0); Mean Corpuscular Hemoglobin 30.1 pg (27.0-33.0); Mean Corpuscular Volume 86.2 fL (80-95); Monocytes % 8.5; Neutrophils % 68.5; Platelet Count 183 x1000/uL (130-400); RBC 5.52 m/cumm (4.50-6.00); White Blood Cell Count 8.45 k/cumm (4.4-10.8)
--- NOTE | 2019-11-16 04:45 | DI.RAD_ITS ---
EXAM: XR PORTABLE CHEST AP CLINICAL HISTORY: shortness of breath TECHNIQUE: 2D digital imaging was performed. COMPARISON: No exams were available for comparison FINDINGS: MEDIASTINUM: Normal. HEART: Normal. PULMONARY VASCULATURE: Normal. LUNGS: Clear. PLEURAL SPACE: No pleural effusion or pneumothorax. BONE:Normal. OTHER FINDINGS:Normal. IMPRESSION: No acute pulmonary findings. DATA REPOSITORY: RADIATION DOSE DELIVERED:
[2019-11-16] MEDS: predniSONE 20 MG TAB 60 MG PO (04:52)
[2019-11-16 04:59] LABS: ALT 96 U/L (16-63); AST 40 U/L (15-37); Albumin 3.9 g/dL (3.4-5.0); Alkaline Phosphatase 67 U/L (46-116); Anion Gap 11.3 mmol/L (3-11); BUN 15 mg/dL (7-18); Bilirubin, Total 0.9 mg/dL (0.2-1.0); CO2 25.7 mmol/L (21.0-32.0); CREATININE 0.91 mg/dL (0.70-1.30); Calcium 8.7 mg/dL (8.5-10.1); Chloride 103 mmol/L (98-107); Glucose 142 mg/dL (74-106); Potassium 3.6 mmol/L (3.5-5.1); Sodium 140 mmol/L (136-145); Total Protein 7.4 g/dL (6.4-8.2)
--- NOTE | 2019-11-16 04:59 | DI.VRAD_ITS ---
PROCEDURE INFORMATION: Exam: XR Chest, 1 View Exam date and time: 11/16/2019 4:47 AM Age: 39 years old Clinical indication: Shortness of breath TECHNIQUE: Imaging protocol: XR of the chest Views: 1 view. COMPARISON: CT CHEST PE CTA 05/08/2019 9:22 PM FINDINGS: Lungs: Mild chronic interstitial prominence/peribronchial thickening. Low lung volumes. No consolidation. Pleural space: No pleural effusion. No pneumothorax. Heart/Mediastinum: No cardiomegaly. Bones/joints: Unremarkable. IMPRESSION: No acute findings. No radiographic evidence for pneumonia Dictated and Authenticated by: Fuad Smith MD. Ordering:RADHA Garvin MD
[2019-11-16 05:01] LABS: Troponin I < 0.05 ng/mL (<0.06)
[2019-11-16 05:03] LABS: NT-proBNP 20 pg/mL (<300)
--- NOTE | 2019-11-16 05:37 | NUR.NOTE ---
Pt requesting to speak to mental health. Denies SI/HI. States feeling depressed, anxious and stressed. Call out to [facility].
[2019-11-16 06:44] VITALS: BP 138/98; PULSE 85; RESP 16; O2SAT 98
--- NOTE | 2019-11-16 06:56 | NUR.NOTE ---
Cleared by [facility] for DC home. Feels safe to go home. Prsdnisone script given. Ambulated to exit with steady gait.
--- NOTE | 2019-11-17 11:06 | PDOC.ERCMPRO ---
- If Service Date Differs Date of service: 11/17/19 Time of Service: 11:06 Care Management Progress Note CM coordinates follow-up appointment for patient with his PCP. A telephone call to [facility] reveals Dante Balderas, behavioral health specialist at [facility], for counseling and has an appointment scheduled with her on 12/04/2019. [facility] will outreach to patient to schedule ED follow-up appointment.
== END 2019-11-16 06:57 | disposition home or self-care (01) ==
PROVIDERS: Emergency Provider Emergency Medicine; PCP Nurse Practitioner Family
DX: R06.02 Shortness of breath (principal); F32.9 Major depressive disorder, single episode, unspecified; J45.909 Unspecified asthma, uncomplicated; G47.33 Obstructive sleep apnea (adult) (pediatric); G71.02 Facioscapulohumeral muscular dystrophy; Z87.891 Personal history of nicotine dependence
CPT/HCPCS: 36415; 80053; 82805; 93005; 99285; 71045; 83735; 83880; 84484; 85025; 93010; 99284; J7512

== ENCOUNTER 2019-12-17 08:30 | Outpatient (REF) | payer MEDICAID, SELFPAY ==
[2019-12-17 10:48] LABS: Hemoglobin A1C 5.1 % (3.8-5.6)
== END 2019-12-17 08:50 ==
LOC: NCHCN 08:30
PROVIDERS: PCP Nurse Practitioner Family; Visit Provider Physician Assistant
DX: R73.03 Prediabetes (principal)
CPT/HCPCS: 83036

== ENCOUNTER 2021-09-15 09:54 | Outpatient (REF) | payer MEDICAID, SELFPAY ==
[2021-09-15 15:28] LABS: HCT 51.8 % (40.0-50.0); HGB 16.7 g/dL (13.5-17.5); MCH 28.9 pg (27.0-33.0); MCHC 32.2 % (32.0-36.0); MCV 89.6 fL (80-95); MPV 13.1 fL (8.0-11.0); Platelet Count 133 10^3/uL (130-400); RBC 5.78 10^6/uL (4.36-5.78); RDW-SD 42.9 fL
[2021-09-15 16:15] LABS: Anion Gap 3.7 mmol/L (3-11); BUN 12 mg/dL (7-18); CO2 31.3 mmol/L (21.0-32.0); CREATININE 0.7 mg/dL (0.70-1.30); Calcium 8.7 mg/dL (8.5-10.1); Chloride 105 mmol/L (98-107); Glucose 118 mg/dL (74-106); Potassium 4.6 mmol/L (3.5-5.1); Sodium 140 mmol/L (136-145)
== END 2021-09-15 09:55 | disposition home or self-care (01) ==
LOC: NCHCN 09:54
PROVIDERS: PCP Nurse Practitioner Family; Visit Provider Nurse Practitioner Family
DX: R73.03 Prediabetes (principal); D45 Polycythemia vera
CPT/HCPCS: 80048; 85027

== ENCOUNTER 2022-03-09 08:13 | Outpatient (CLI) | payer MEDICAID, SELFPAY ==
--- NOTE | 2022-03-09 08:00 | RT.EKG_ITS ---
APPROVED REPORT Exam: Resting ECG Reason for Exam: VT Patient Location: O HR:98 bpm ECG Measurements Heart Rate 98 AXIS UT 114 P 46 QRSd 95 QRS -70 QT 338 T 47 QTc 432 Conclusion Sinus rhythm...normal P axis, V-rate 50- 99 Borderline short UT interval...UT int <120mS LAD, consider left anterior fascicular block...axis(240,-40), S>R II III aVF Abnormal R-wave progression, late transition...QRS area<0 in V5/V6
== END 2022-03-09 08:14 | disposition home or self-care (01) ==
LOC: DI.CARD 08:15
PROVIDERS: PCP Nurse Practitioner Family; Visit Provider Internal Medicine Cardiovascular Disease
DX: I47.2 Ventricular tachycardia (principal); R94.31 Abnormal electrocardiogram [ECG] [EKG]
CPT/HCPCS: 93010

== ENCOUNTER → 2022-05-10 02:18 | Outpatient (CLI) | payer MEDICAID, SELFPAY ==
--- NOTE | 2022-05-10 14:14 | DI.RAD_ITS ---
Exam(s) XR ELBOW RT COMPLETE EXAM: XR ELBOW RT COMPLETE CLINICAL HISTORY: RT ELBOW PAIN, M25.521 TECHNIQUE: COMPARISON: No exams were available for comparison FINDINGS: Three views were obtained. There is no evidence of an elbow joint effusion or hemarthrosis. There a re mild marginal osteophytes of the joints of the elbow and there is a small enthesophyte of the olec ranon. No other bony or soft tissue abnormality seen. IMPRESSION: Mild degenerative changes as described above. RADIATION DOSE DELIVERED: Total DLP
== END ==
PROVIDERS: PCP Nurse Practitioner Family; Visit Provider Nurse Practitioner Family
DX: M19.021 Primary osteoarthritis, right elbow (principal)
CPT/HCPCS: 73080

== ENCOUNTER 2022-12-02 10:47 | Emergency (ER) | payer MEDICAID, SELFPAY ==
[2022-12-02 11:01] VITALS: BP 144/99; PULSE 82; RESP 18; TEMP 36.9; O2SAT 96
--- NOTE | 2022-12-02 11:15 | DI.RAD_ITS ---
Exam(s) XR KNEE LT 3V AP,LAT,LINDA EXAM: XR KNEE LT 3V AP,LAT,LINDA CLINICAL HISTORY: contusion and abrasion to left knee, fall. TECHNIQUE: 2D digital imaging was performed. Three views. COMPARISON: None FINDINGS: BONES: Lucency through lateral pole of the patella suspicious for nondisplaced fracture. Trace joint effusion visible. No bony destructive lesion is seen. JOINTS: The knee is normally aligned. No joint effusion is seen. SOFT TISSUE: Anterior soft tissue swelling. IMPRESSION: Fracture of the lateral aspect of the patella. DATA REPOSITORY: RADIATION DOSE DELIVERED:
--- NOTE | 2022-12-02 11:44 | DI.VRAD_ITS ---
PROCEDURE INFORMATION: Exam: XR Left Knee Exam date and time: 12/02/2022 11:36 AM Age: 42 years old Clinical indication: Injury or trauma; Swelling (edema); Injury details: Contusion and abrasion to left knee, fall TECHNIQUE: Imaging protocol: Radiologic exam of the left knee. Views: 3 views. COMPARISON: No relevant prior studies available. FINDINGS: Bones/joints: Degenerative changes in the patella. Small joint effusion. Question lateral vertically oriented patellar fracture Soft tissues: Normal. IMPRESSION: Question vertically oriented lateral patellar fracture Degenerative changes as noted and small joint effusion Dictated and Authenticated by: Fuad Smith MD. Ordering:ELIZABETH Chance MD
--- NOTE | 2022-12-02 11:45 | DI.CT_ITS ---
Exam(s) CT LOWER EXTREMITY LT WO EXAM: CT LOWER EXTREMITY LT WO CLINICAL HISTORY: patellar fracture, lac, eval open fx. TECHNIQUE: Imaging Protocol: Axial computed tomography images with coronal and sagittal reformatted images were created and reviewed. CONTRAST MATERIAL: Noncontrast COMPARISON: CR,XR XR KNEE LT 3V AP,LAT,LINDA from 12/02/2022 FINDINGS: Bones: Comminuted fracture seen involving the lateral aspect of the patella. The distal femur, proxi mal tibia and fibula appear intact. Soft Tissues: Anterior soft tissue edema. Small hemarthrosis. Severe quadriceps muscle atrophy is noted. Medial venous varicosities. Joints: Mild medial femoral tibial joint space narrowing. Small enthesophyte at quadriceps insertion . IMPRESSION: Comminuted fracture at the superolateral border of the patella. RADIATION DOSE DELIVERED: 267.32mGy.cm Total DLP DATA REPOSITORY: All CT scans at this facility are submitted to the National Radiology Data Registry (NRDR) Dose Index Registry (DIR) with the [employer] (ACR). RADIATION OPTIMIZATION: All CT scans at this facility use at least one of these dose optimization te chniques: automated exposure control; mA and/or kV adjustment per patient size (includes targeted exa ms where dose is matched to clinical indication); or iterative reconstruction.
[2022-12-02] MEDS: Nicotine 21 MG/24 HR PATCH TD (12:02)
--- NOTE | 2022-12-02 12:12 | W.ED.GENAD ---
Discharge Plan Disposition Patient Disposition: Home Discharge Details Clinical Impression: Patellar fracture, Hemarthrosis Primary Care Provider: Selena Carias ED Provider: Meron Palmer Home Meds and New Rx's Prescriptions: Continued nicotine 14 mg/24 hr patch 24 hour 1 patch TD DAILY Januvia 100 mg tablet 50 mg PO DAILY budesonide-formoterol [Symbicort] 80-4.5 mcg/actuation HFA aerosol inhaler 2 puff IH BID Rx Instructions: PCP list states 160-4.5 dose. acetaminophen [Tylenol] 325 MG tablet 325 mg PO Q4H PRN ibuprofen 200 mg capsule 400 mg PO TID PRN Discharge Instructions Additional Instructions: No weightbearing Use the crutches Ice, elevate, Orthopedic follow-up tomorrow Please call if you do not hear from them by 10 Return immediately should you have spreading redness, fever, worsening pain Referrals: Selena Carias [Primary Care Provider] - Medical Decision Making Patient with tenderness to left knee, after fall that occurred last evening Abrasion noted, no laceration, no communication between fracture and surface of skin noted X-ray shows evidence of possible vertical patellar fracture, CT ordered for further evaluation specifically to evaluate for possible open joint, no evidence of open fracture at this time I explored the abrasion, and it did not penetrate into the deep structures and was superficial in nature Tetanus is up-to-date per patient No indication for antibiotics Wound covered and cleansed, knee immobilizer applied, orthopedic referral supplied for hemarthrosis with patellar fracture Patient is alert, oriented, ambulatory with crutches and knee immobilizer, nonweightbearing Placed on Ortho list for follow-up HPI General Date/Time Provider Initiated Documentation: 12/02/22 11:11. HPI Narrative: This 42-year-old male presents with left knee and rodriguez pain after a fall last evening. He has abrasions. The fall was mechanical in nature. He is able to ambulate but with pain. Tetanus is reportedly up-to-date. Denies history of coagulopathy or other acquired injuries. Related Data Home Medications Medication Instructions Recorded Confirmed acetaminophen 325 mg tablet 325 mg PO Q4H PRN 09/26/16 12/02/22 (Tylenol) ibuprofen 200 mg capsule 400 mg PO TID PRN 08/04/19 12/02/22 nicotine 14 mg/24 hr daily 1 patch transdermal DAILY 09/28/19 12/02/22 transdermal patch sitagliptin phosphate 100 mg 50 mg PO DAILY 03/03/21 12/02/22 tablet (Januvia) budesonide-formoterol HFA 80 2 puff inhalation BID 09/27/22 12/02/22 mcg-4.5 mcg/actuation aerosol inhaler (Symbicort) Allergies Allergy/AdvReac Type Severity Reaction Status Date / Time No Known Allergies Allergy Verified 12/02/22 11:03 General Stated Complaint: Orthopedic [place]: 4 PFSH All Active Problems (Updated 12/02/22 @ 13:12 by MIN Carrillo) Patellar fracture (Acute) Hemarthrosis (Acute) Olecranon bursitis of right elbow (Acute) Right elbow pain (Acute) Nonsustained ventricular tachycardia (Acute) JOHANNE (obstructive sleep apnea) (Chronic) trilogy use Obesity, morbid, BMI 40.0-49.9 (Chronic) Tobacco dependence (Chronic) Pulmonary hypertension (Chronic) Subclinical hypothyroidism (Chronic) Discharge planning issues (Acute) DVT prophylaxis (Acute) Secondary polycythemia (Chronic) Acute on chronic respiratory failure with hypoxia and hypercapnia (Acute) Polycythemia secondary to smoking (Chronic) Hypoxemia (Acute) Exacerbation of asthma (Acute) Moderate persistent Fascioscapulohumeral muscular dystrophy (Chronic 10/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 A1C checked annually by PCP Family History Other Adopted Social History Smoking/Tobacco Use Status: Current every day Tobacco: How many years used: 20 Smoking risk assessment performed?: Yes Alcohol Intake: former Drug use: Occasionally Substance use type: marijuana Details: last smoked marijuana 2 weeks ago. 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 He did not complete high school. He has 2 daughters who live with their mother; ages 8 and 10. Exam Extrem Other: Abrasion noted to the prepatellar region, superficial, no deep puncture noted, tenderness and swelling noted to left knee, abrasion noted to left distal tib-fib region, neurovascularly intact, no tenderness to ankle, no tenderness to left hip Course Vital Signs Vital signs: Vital Signs Temperature 36.9 C 12/02/22 11:01 Pulse 82 12/02/22 11:01 Respiratory Rate 18 12/02/22 11:01 Blood Pressure 144/99 H 12/02/22 11:01 Pulse Oximetry 96 12/02/22 11:01 Temperature 36.9 C 12/02/22 11:01 Temperature Source Oral 12/02/22 11:01 Pulse 82 12/02/22 11:01 Respiratory Rate 18 12/02/22 11:01 Respiratory Effort Normal, Non-Labored 12/02/22 11:03 Blood Pressure 144/99 H 12/02/22 11:01 Pulse Oximetry 96 12/02/22 11:01 Oxygen Delivery Method Room Air 12/02/22 11:01 Oxygen Flow Rate 0 12/02/22 11:01
--- NOTE | 2022-12-02 12:48 | DI.VRAD_ITS ---
PROCEDURE INFORMATION: Exam: CT Left Lower Extremity With Contrast, Knee Exam date and time: 12/02/2022 12:32 PM Age: 42 years old Clinical indication: Injury or trauma; Fall; Other: Patellar fracture, lac, eval open FX TECHNIQUE: Imaging protocol: CT of the left lower extremity with intravenous contrast was performed. Exam focused on the knee. COMPARISON: CR XR KNEE LT 3V AP,LAT,LINDA 12/02/2022 11:36 AM FINDINGS: Bones/joints: Mildly comminuted lateral/superior patellar fracture with minimal impaction superiorly. There is a small effusions/hemarthrosis. There are mild degenerative changes in the anterior superior patella. The proximal tibia fibula and distal femur appear grossly intact Soft tissues: Prepatellar swelling IMPRESSION: Mildly comminuted lateral patellar fracture as noted and small effusion/hemarthrosis Dictated and Authenticated by: Fuad Smith MD. Ordering:ELIZABETH Chance MD
[2022-12-02 13:32] VITALS: RESP 18
== END 2022-12-02 13:32 | disposition home or self-care (01) ==
PROVIDERS: Emergency Provider Physician Assistant; PCP Physician Assistant
DX: S82.002A Unspecified fracture of left patella, initial encounter for closed fracture (principal); M25.062 Hemarthrosis, left knee; W19.XXXA Unspecified fall, initial encounter
CPT/HCPCS: 29505; 73562; 99284; 73700

== ENCOUNTER 2022-12-12 11:08 | Outpatient (CLI) | payer MEDICAID, SELFPAY ==
--- NOTE | 2022-12-12 12:01 | DI.RAD_ITS ---
Exam(s) XR KNEE LT 2V AP,LAT EXAM: XR KNEE LT 2V AP,LAT CLINICAL HISTORY: F/U LEFT PATELLA FX. TECHNIQUE: 2D digital imaging was performed. Three views. COMPARISON: CR,XR XR KNEE LT 3V AP,LAT,LINDA from 12/02/2022 FINDINGS: There has been no change in the alignment of the fracture at the lateral aspect of the patella. No n ew abnormalities are seen. DATA REPOSITORY: RADIATION DOSE DELIVERED:
== END 2022-12-12 11:09 | disposition home or self-care (01) ==
LOC: DIORS 11:08
PROVIDERS: PCP Physician Assistant; Referring Provider Physician Assistant; Visit Provider Physician Assistant
DX: S82.045D Nondisplaced comminuted fracture of left patella, subsequent encounter for closed fracture with routine healing (principal); X58.XXXD Exposure to other specified factors, subsequent encounter; Z47.89 Encounter for other orthopedic aftercare
CPT/HCPCS: 73560

== ENCOUNTER 2022-12-26 09:06 | Outpatient (REF) | payer MEDICAID, SELFPAY ==
[2022-12-26 17:12] LABS: ALT 68 U/L (16-63); AST 37 U/L (15-37); Albumin 3.6 g/dL (3.4-5.0); Alkaline Phosphatase 77 U/L (46-116); Anion Gap 6.5 mmol/L (3-11); BUN 11 mg/dL (7-18); Bilirubin, Total 0.4 mg/dL (0.2-1.0); CO2 31.5 mmol/L (21.0-32.0); CREATININE 0.6 mg/dL (0.70-1.30); Calcium 9.2 mg/dL (8.5-10.1); Chloride 104 mmol/L (98-107); Glucose 106 mg/dL (74-106); Potassium 4.4 mmol/L (3.5-5.1); Sodium 142 mmol/L (136-145); T4 7.4 ug/dL (4.7-13.3); TSH 1.05 uIU/mL (0.36-3.74); Total Protein 6.6 g/dL (6.4-8.2)
[2022-12-26 17:27] LABS: Hemoglobin A1C 6.1 % (<5.7)
== END 2022-12-26 09:07 | disposition home or self-care (01) ==
LOC: NCHCN 09:06
PROVIDERS: PCP Physician Assistant; Visit Provider Physician Assistant
DX: R53.83 Other fatigue (principal); R73.03 Prediabetes
CPT/HCPCS: 80053; 83036; 84436; 84443

== ENCOUNTER 2023-01-17 11:15 | Outpatient (CLI) | payer MEDICAID, SELFPAY ==
--- NOTE | 2023-01-17 10:15 | DI.RAD_ITS ---
Exam(s) XR KNEE LT 2V AP,LAT EXAM: XR KNEE LT 2V AP,LAT CLINICAL HISTORY: f/u L PATELLA FX. TECHNIQUE: 2D digital imaging was performed of the left knee. Two images were obtained. AP and lat eral views were obtained. COMPARISON: CR XR KNEE LT 2V AP,LAT from 12/12/2022 FINDINGS: BONES: There has been no change in alignment of the fracture of the superior lateral aspect of the p atella. The fracture line is still visualized. No bony destructive lesion is seen. JOINTS: The knee is normally aligned. No joint effusion is seen. No loose body. SOFT TISSUE: Normal. IMPRESSION: Stable patellar fracture. A CT scan might provide better detail if clinically appropriate. DATA REPOSITORY: RADIATION DOSE DELIVERED:
== END 2023-01-17 11:16 | disposition home or self-care (01) ==
LOC: DIORS 11:15
PROVIDERS: PCP Physician Assistant; Visit Provider Physician Assistant
DX: S82.045D Nondisplaced comminuted fracture of left patella, subsequent encounter for closed fracture with routine healing (principal); X58.XXXD Exposure to other specified factors, subsequent encounter
CPT/HCPCS: 73560

== ENCOUNTER 2023-03-05 14:14 | Outpatient (CLI) | payer MEDICAID, SELFPAY ==
--- NOTE | 2023-03-05 14:00 | RT.EKG_ITS ---
APPROVED REPORT Exam: Resting ECG Reason for Exam: non sustained VT Patient Location: O HR:96 bpm ECG Measurements Heart Rate 96 AXIS WV 116 P 40 QRSd 97 QRS -63 QT 334 T 32 QTc 422 Conclusion Sinus rhythm...normal P axis, V-rate 50- 99 Borderline short WV interval...WV int <120mS Probable left atrial enlargement...P >50mS, <-0.10mV V1 LAD, consider left anterior fascicular block...axis(240,-40), S>R II III aVF Baseline wander in lead(s) V6
== END 2023-03-05 14:15 | disposition home or self-care (01) ==
LOC: DI.CARD 14:15
PROVIDERS: PCP Physician Assistant; Visit Provider Internal Medicine Cardiovascular Disease
DX: I47.29 Other ventricular tachycardia (principal)
CPT/HCPCS: 93010

== ENCOUNTER 2023-07-25 11:05 | Emergency (ER) | payer MEDICAID, SELFPAY ==
[2023-07-25 11:10] VITALS: BP 156/114; PULSE 105; RESP 20; TEMP 36.6; O2SAT 97
--- NOTE | 2023-07-25 11:19 | W.ED.GENAD ---
HPI General Date/Time Provider Initiated Documentation: 07/25/23 11:07. HPI Narrative: 43 year-old male presents to ED today by POV/ambulating with a chief complaint of not feeling well, body aches, nausea, feels confused in his head with onset for at least the past 3 days. Quality described as generally unwell, doesn't feel comfortable, no radiation to fever, vomiting, cough, endorses shortness of breath, denies diarrhea. Severity is described as unable to quantify. Palliating factors include nothing specific. Provoking factors include nothing specific. Events leading up to the incident/Associated Symptoms: Patient appears very anxious- his fiancee arrived and informed provider that he has been in acute mental crisis for at least 3 weeks, and usually gets like this after withdrawal from marijuana use. Patient adamantly denies being a danger, having any kind of suicidal ideations, and is not entirely forthcoming about his anxiety. Patient not anticoagulated. Related Data Home Medications Medication Instructions Recorded Confirmed acetaminophen 325 mg tablet 325 mg PO Q4H PRN 09/26/16 07/25/23 (Tylenol) ibuprofen 200 mg capsule 400 mg PO TID PRN 08/04/19 07/25/23 sitagliptin phosphate 100 mg 50 mg PO DAILY 03/03/21 07/25/23 tablet (Januvia) budesonide-formoterol HFA 80 2 puff inhalation BID 09/27/22 07/25/23 mcg-4.5 mcg/actuation aerosol inhaler (Symbicort) Allergies Allergy/AdvReac Type Severity Reaction Status Date / Time house dust Allergy Intermediate Wheezing Verified 07/25/23 11:16 General Stated Complaint: RespSymp [place]: 3 Review of Systems All systems reviewed & are unremarkable except as noted in HPI and below Exam Narrative Exam Narrative: GENERAL APPEARANCE: Well-nourished, non-toxic, awake and alert, atraumatic, no acute distress. SKIN: Warm, pink, dry, intact, without rashes/lesions/ulcerations. HEAD: Normocephalic, atraumatic, normal hair distribution for gender/age. EYES: Pupils PERRLA, EOMs intact without nystagmus, normal conjunctiva, no exudates on lids/lashes. ENT: Nares patent, no circumoral cyanosis, no facial swelling NECK: Supple, trachea midline, painless cervical ROM, no nuchal rigidity, kernig's/brudzinski's negative. LUNGS/CHEST: Lungs CTA bilaterally, non-labored respirations, normal A/P diameter, symmetrical expansion, no chest wall deformity HEART (CV/PV): Regular rate and rhythm without murmur, no peripheral edema, no JVD. ABDOMEN: Soft, non-distended, no guarding, RUQ tenderness. MSK: Normal ROM, no swelling/deformity to bilateral UEs or LEs, moving all extremities without weakness, no cyanosis, spine midline without tenderness, normal curvature. NEURO: Mental Status AAOx4 - alert to person, place, time, events No facial droop, no forehead involvement. Motor: No focal weakness - strength 5/5 in bilateral UEs and LEs, proximal and distal, symmetric. Sensory: sensation intact to light touch globally. Gait normal: patient ambulated without ataxia into ED room. PSYCH: dysthymic, uncooperative, anxious, tangential speech Course Vital Signs Vital signs: Vital Signs Temperature 36.6 C 07/25/23 11:10 Pulse 105 H 07/25/23 11:10 Respiratory Rate 20 07/25/23 11:10 Blood Pressure 156/114 H 07/25/23 11:10 Pulse Oximetry 97 07/25/23 11:10 Temperature 36.6 C 07/25/23 11:10 Temperature Source Tympanic 07/25/23 11:10 Pulse 105 H 07/25/23 11:10 Respiratory Rate 20 07/25/23 11:10 Respiratory Effort Normal, Non-Labored 07/25/23 11:15 Blood Pressure 156/114 H 07/25/23 11:10 Pulse Oximetry 97 07/25/23 11:10 Oxygen Delivery Method Room Air 07/25/23 11:10 Oxygen Flow Rate 0 07/25/23 11:10 Pain Level 4 07/25/23 11:10 Medical Decision Making This dictation utilizes [id number] dictation software and may contain unedited grammatical errors. 43 y/o M presents to ED today with a chief complaint of body aches, nausea, SOB x3days- his fiancee presents to ED and states he has been having paranoia likely due to marijuana withdrawal- acting erractically but not a danger to himself actively- he denies SI/HI. Patient has been going around to various facilities with vague complaints, refusing all studies here. Patients' medical history: prediabetes, asthma, JOHANNE w new BiPAP machine and has not been sleeping well, tobacco use. 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 Pertinent exam findings / vital signs include no signs of meningismus, patient is anxious but lungs are CTA, has mild right upper quadrant tenderness. Differential / pathologies of concern include viral syndrome, acute abdominal pathology, acute delirium, psychosis, substance use disorder. Diagnostic studies of: -significant work-up ordered, CBC, inflammatory markers, blood Cx's, XR chest, CT ABD/Pelvis - patient refused all studies. Interventions of: -Planned for IVF, APAP/Toradol, Zofran- offered anxiolytic, patient refused. ED Course/Assessment/Plan: 43-year-old male presents with anxiety to the emergency department states he has not feel well and has nausea as well as body aches, he was repeatedly uncooperative and refused IV after agreeing to said procedure many times with provider but refusing when nursing staff entered the room. His sair presented to ED, informing of his acute mental health issues but he is actively denying any danger to himself and suicidal ideation. He refused further studies and eloped home with his sari, both had appropriate interaction I did not insist that he is unsafe at home I did encourage him to return for any acute emergent concerns. Findings not consistent with suicidal ideation, unsafe situation at home- prudencee present and calming to him- other possible medical pathology not ruled out- patient eloped. Disposition of Anxiety, Eloped from Emergency Department. Patient verbalized understanding of the plan and return to ED criteria and engaged in shared decision making. Medical Records Medical records reviewed: Yes I reviewed the patient's medical records. Lab Data Lab results reviewed: Yes I reviewed the patient's lab results. Labs: Laboratory Tests Range/Units 07/25/23 07/25/23 07/25/23 11:31 11:32 11:38 WBC Cancelled RBC Cancelled Hgb Cancelled Hct Cancelled MCV Cancelled MCH Cancelled MCHC Cancelled RDW Cancelled Plt Count Cancelled MPV Cancelled Immature Gran % Cancelled Neutrophils % Cancelled Band Neutrophils % Cancelled Lymphocytes % Cancelled Atypical Lymphs % Cancelled Monocytes % Cancelled Eosinophils % Cancelled Basophils % Cancelled Metamyelocytes % Cancelled Myelocytes % Cancelled Promyelocytes % Cancelled Other Cells % Cancelled Nucleated RBC % Cancelled Absolute Neutrophils Cancelled Absolute Lymphocytes Cancelled Absolute Monocytes Cancelled Absolute Eosinophils Cancelled Absolute Basophils Cancelled RBC Morphology Cancelled Polychromasia Cancelled Hypochromasia Cancelled Poikilocytosis Cancelled Basophilic Stippling Cancelled Anisocytosis Cancelled Microcytosis Cancelled Macrocytosis Cancelled Spherocytes Cancelled Tear Drop Cells Cancelled Ovalocytes Cancelled Stomatocytes Cancelled [place] Bodies Cancelled Good Cells/Echinocytes Cancelled Acanthocytes (Spur) Cancelled Schistocytes Cancelled ESR Cancelled VBG pH Cancelled VBG pCO2 Cancelled VBG pO2 Cancelled VBG HCO3 Cancelled VBG Total CO2 Cancelled VBG O2 Saturation Cancelled VBG Base Excess Cancelled VBG Lactate Cancelled Sodium Cancelled Potassium Cancelled Chloride Cancelled Carbon Dioxide Cancelled Anion Gap Cancelled BUN Cancelled Creatinine Cancelled Est GFR (CKD-EPI 2020) Cancelled Glucose Cancelled Calcium Cancelled Magnesium Cancelled Total Bilirubin Cancelled Conjugated Bilirubin Cancelled AST Cancelled ALT Cancelled Alkaline Phosphatase Cancelled Ammonia Cancelled Creatine Kinase Cancelled Troponin I Cancelled C-Reactive Protein Cancelled NT-Pro-B Natriuret Pep Cancelled Total Protein Cancelled Albumin Cancelled Lipase Cancelled Procalcitonin Cancelled Urine Color Urine Clarity Urine pH Ur Specific [place] Urine Protein Urine Ketones Urine Blood Urine Nitrite Urine Bilirubin Urine Urobilinogen Ur Leukocyte Esterase Urine Glucose COVID-19 Source Cancelled SARS-CoV-2 (PCR) Cancelled Influenza Type A (PCR) Cancelled Influenza Type B (PCR) Cancelled RSV (PCR) Cancelled Range/Units 07/25/23 11:40 WBC RBC Hgb Hct MCV MCH MCHC RDW Plt Count MPV Immature Gran % Neutrophils % Band Neutrophils % Lymphocytes % Atypical Lymphs % Monocytes % Eosinophils % Basophils % Metamyelocytes % Myelocytes % Promyelocytes % Other Cells % Nucleated RBC % Absolute Neutrophils Absolute Lymphocytes Absolute Monocytes Absolute Eosinophils Absolute Basophils RBC Morphology Polychromasia Hypochromasia Poikilocytosis Basophilic Stippling Anisocytosis Microcytosis Macrocytosis Spherocytes Tear Drop Cells Ovalocytes Stomatocytes [place] Bodies Good Cells/Echinocytes Acanthocytes (Spur) Schistocytes ESR VBG pH VBG pCO2 VBG pO2 VBG HCO3 VBG Total CO2 VBG O2 Saturation VBG Base Excess VBG Lactate Sodium Potassium Chloride Carbon Dioxide Anion Gap BUN Creatinine Est GFR (CKD-EPI 2020) Glucose Calcium Magnesium Total Bilirubin Conjugated Bilirubin AST ALT Alkaline Phosphatase Ammonia Creatine Kinase Troponin I C-Reactive Protein NT-Pro-B Natriuret Pep Total Protein Albumin Lipase Procalcitonin Urine Color Cancelled Urine Clarity Cancelled Urine pH Cancelled Ur Specific [place] Cancelled Urine Protein Cancelled Urine Ketones Cancelled Urine Blood Cancelled Urine Nitrite Cancelled Urine Bilirubin Cancelled Urine Urobilinogen Cancelled Ur Leukocyte Esterase Cancelled Urine Glucose Cancelled COVID-19 Source SARS-CoV-2 (PCR) Influenza Type A (PCR) Influenza Type B (PCR) RSV (PCR) Quality:SDOH Health Related Social Needs: No Data to Display PFSH All Active Problems (Updated 07/25/23 @ 13:19 by MIN Reinoso) Anxiety (Chronic) Eloped from emergency department (Acute) Asthma (Chronic) Venous insufficiency of both lower extremities (Acute) Nail dystrophy (Acute) Ingrown toenail of right foot (Acute) Onychomycosis (Acute) Fracture of patella, left, closed (Acute 12/01/22) Olecranon bursitis of right elbow (Acute) Right elbow pain (Acute) Nonsustained ventricular tachycardia (Acute) JOHANNE (obstructive sleep apnea) (Chronic) trilogy use Obesity, morbid, BMI 40.0-49.9 (Chronic) Tobacco dependence (Chronic) Pulmonary hypertension (Chronic) Subclinical hypothyroidism (Chronic) Discharge planning issues (Acute) DVT prophylaxis (Acute) Secondary polycythemia (Chronic) Acute on chronic respiratory failure with hypoxia and hypercapnia (Acute) Polycythemia secondary to smoking (Chronic) Hypoxemia (Acute) Exacerbation of asthma (Acute) 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 A1C checked annually by PCP Family History Other Adopted Social History Smoking/Tobacco Use Status: Current every day Tobacco Type: cigarettes Tobacco: How many years used: 20 Smoking risk assessment performed?: Yes Alcohol Intake: former Drug use: Occasionally Substance use type: marijuana Details: last smoked marijuana 2 weeks ago. 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 He did not complete high school. He has 2 daughters who live with their mother; ages 8 and 10. Discharge Plan Disposition Patient Disposition: Eloped Condition: Stable Discharge Details Clinical Impression: Eloped from emergency department, Anxiety Primary Care Provider: Vinicio Corley ED Provider: Lane Staley Home Meds and New Rx's Prescriptions: No Action Januvia 100 mg tablet 50 mg PO DAILY budesonide-formoterol [Symbicort] 80-4.5 mcg/actuation HFA aerosol inhaler 2 puff IH BID Rx Instructions: PCP list states 160-4.5 dose. acetaminophen [Tylenol] 325 MG tablet 325 mg PO Q4H PRN ibuprofen 200 mg capsule 400 mg PO TID PRN Discharge Data Discharge Date/Time-TO BE ENTERED AT DEPARTURE: 07/25/23 12:45
--- NOTE | 2023-07-25 12:05 | NUR.NOTE ---
Nursing Note: Pt refusing IV and lab draw at this time. PA made aware.
--- NOTE | 2023-07-25 12:19 | NUR.NOTE ---
pt refusing iv blood draw and all procedures, keeps stating that he feels uncomfortable, his girlfriend is at bedside :
--- NOTE | 2023-07-27 07:22 | NUR.NOTE ---
Accessed chart to determine orders for EKG and to determine whether or not one needs to be cancelled. Nursing Note:
--- NOTE | 2023-08-01 12:18 | NUR.NOTE ---
Accessed pt chart to determine the EKG and orders. No EKG in [employer] for this account or time. It was done on this account for the account later in the day. EKG moved to that account. EKG order now cancelled on this account. Nursing Note:
== END 2023-07-25 12:45 | disposition left against medical advice (07) ==
LOC: ER 11:18
PROVIDERS: Emergency Provider Physician Assistant; PCP Physician Assistant
DX: F32.A Depression, unspecified (principal); F17.210 Nicotine dependence, cigarettes, uncomplicated
CPT/HCPCS: 80053; 80076; 82550; 82805; 82962; 83690; 84145; 85652; 87040; 87637; 99284; 81003; 82140; 83605; 83735; 83880; 84484; 85025; 86140

== ENCOUNTER 2023-07-25 17:08 | Emergency (ER) | payer MEDICAID, SELFPAY ==
[2023-07-25 17:11] VITALS: BP 173/121; PULSE 89; RESP 15; TEMP 36.4; O2SAT 100
--- NOTE | 2023-07-25 17:15 | RT.EKG_ITS ---
APPROVED REPORT Exam: Resting ECG Reason for Exam: ams Patient Location: E HR:79 bpm ECG Measurements Heart Rate 79 AXIS MO 112 P 42 QRSd 102 QRS -30 QT 361 T 32 QTc 414 Conclusion Sinus rhythm...normal P axis, V-rate 60- 99 Incomplete RBBB and LAFB...axis(240,-40), S>R II III aVF
--- NOTE | 2023-07-25 17:15 | DI.CT_ITS ---
Exam(s) CT HEAD WO EXAM: CT HEAD WO CLINICAL HISTORY: ams. TECHNIQUE: Imaging Protocol: Axial computed tomography images with coronal and sagittal reformatted images were created and reviewed COMPARISON: No exams were available for comparison FINDINGS: Ventricles and Extra axial spaces: Normal in size and morphology for the patient's age. Hemorrhage: None. Cerebral parenchyma: Normal. Midline shift: None. Brainstem/Cerebellum: Normal. Calvarium: Normal. Visualized Paranasal sinuses/Mastoids: Clear. Soft Tissues: Unremarkable. IMPRESSION: No acute intracranial process. RADIATION DOSE DELIVERED: 986.86mGy.cm Total DLP DATA REPOSITORY: All CT scans at this facility are submitted to the National Radiology Data Registry (NRDR) Dose Index Registry (DIR) with the [employer] (ACR). RADIATION OPTIMIZATION: All CT scans at this facility use at least one of these dose optimization te chniques: automated exposure control; mA and/or kV adjustment per patient size (includes targeted exa ms where dose is matched to clinical indication); or iterative reconstruction.
--- NOTE | 2023-07-25 17:28 | DI.RAD_ITS ---
Exam(s) XR CHEST 2V PA LATERAL EXAM: XR CHEST 2V PA LATERAL CLINICAL HISTORY: ams TECHNIQUE: 2D digital imaging was performed of the chest. Two images were obtained. PA and lateral views were obtained. COMPARISON: CR,XR XR PORTABLE CHEST AP from 11/16/2019 FINDINGS: MEDIASTINUM: Normal. HEART: Normal. PULMONARY VASCULATURE: Normal. LUNGS: Clear. PLEURAL SPACE: No pleural effusion or pneumothorax. BONE:Within normal limits for the patient's age. OTHER FINDINGS:There is elevation of the right hemidiaphragm. IMPRESSION: No acute pulmonary findings. DATA REPOSITORY: RADIATION DOSE DELIVERED:
--- NOTE | 2023-07-25 17:34 | W.ED.GENAD ---
HPI General Date/Time Provider Initiated Documentation: 07/25/23 17:10. HPI Narrative: 47-year-old male history of depression, brought in by family for evaluation of feeling generally unwell over the last several days, feels fatigued, has low concentration, also endorses some shortness of breath, has creased anxiety has had thoughts of self-harm within the last couple of days Related Data Home Medications Medication Instructions Recorded Confirmed acetaminophen 325 mg tablet 325 mg PO Q4H PRN 09/26/16 07/25/23 (Tylenol) ibuprofen 200 mg capsule 400 mg PO TID PRN 08/04/19 07/25/23 sitagliptin phosphate 100 mg 50 mg PO DAILY 03/03/21 07/25/23 tablet (Januvia) budesonide-formoterol HFA 80 2 puff inhalation BID 09/27/22 07/25/23 mcg-4.5 mcg/actuation aerosol inhaler (Symbicort) Allergies Allergy/AdvReac Type Severity Reaction Status Date / Time house dust Allergy Intermediate Wheezing Verified 07/25/23 11:16 General Stated Complaint: PsychEval [place]: 2 Review of Systems Narrative: Review of Systems Constitutional: Fatigue Eyes: negative ENT: negative Cardiovascular: negative Respiratory: negative Gastrointestinal: negative : negative Musculoskeletal: negative Skin: negative Neurologic: negative Psych: Depression, SI Exam Narrative Exam Narrative: Physical Examination General: alert, awake, cooperative, appears uncomfortable, slowly writhing in bed HEENT: normocephalic, atraumatic; PERRL, EOM intact, conjunctiva normal; no nasal discharge; moist mucous membranes, oral and pharyngeal mucosa normal, tolerating secretions Neck: supple, trachea midline; full ROM Chest: normal to inspection Respiratory: normal respiratory effort, speaking in full sentences, clear to auscultation, no wheezing, rales or rhonchi Cardiac: regular rate, regular rhythm, S1S2 intact, no murmurs rubs or gallops GI: abdomen soft, non-tender, non-distended; no palpable mass or hepatosplenomegaly Skin: no lesions, rashes or trauma appreciated Neuro: AAOx3, normal speech, moving all extremities; cranial nerves intact 5-5 strength upper lower extremities bilaterally moving all extremities without deficit, no ataxia ambulatory Extremities: No signs of trauma no peripheral edema Psych: Blunted affect, intermittent agitation, depression, recent SI Course Vital Signs Vital signs: Vital Signs Temperature 36.4 C L 07/25/23 17:11 Pulse 89 07/25/23 17:11 Respiratory Rate 15 07/25/23 17:11 Blood Pressure 173/121 H 07/25/23 17:11 Pulse Oximetry 100 07/25/23 17:11 Temperature 36.4 C L 07/25/23 17:11 Temperature Source Oral 07/25/23 17:11 Pulse 89 07/25/23 17:11 Respiratory Rate 15 07/25/23 17:11 Respiratory Effort Normal, Non-Labored 07/25/23 17:15 Blood Pressure 173/121 H 07/25/23 17:11 Blood Pressure Position Sitting 07/25/23 17:11 Pulse Oximetry 100 07/25/23 17:11 Oxygen Delivery Method Room Air 07/25/23 17:11 Oxygen Flow Rate 0 07/25/23 17:11 Medical Decision Making 43-year-old male brought in by family for evaluation of feeling generally unwell both physically and mentally, has decreased energy decreased focus, has endorsed body aches and intermittent shortness of breath, worsening depression, thoughts of harming self, patient displays intermittent psychomotor depression alternating with psychomotor agitation, clinical suspicion for underlying psychiatric condition such as severe depression and/or developing psychosis per nurse patient expressed delusions that his girlfriend might be poisoning him, patient noted to be hypertensive on arrival afebrile normal pulse rate normal respirations not hypoxic, no evidence of trauma, no evidence of intoxication, nonfocal neurologic exam, EKG pending, will perform medical workup given constellation of symptoms will obtain basic labs toxicologic labs urinalysis chest x-ray head CT EKG will provide fluids analgesia anxiolysis likely will need evaluation by [facility] [employer] for evaluation of psychiatric symptoms. 19: 56 patient resting comfortably no acute distress. Labs and imaging unremarkable. Patient feeling much better. Has spoken to [facility] [employer] has been cleared for home with safety plan. Strict return precautions given. Patient calm cooperative no SI no HI Quality:SDOH Health Related Social Needs: No Data to Display PFSH All Active Problems (Updated 07/25/23 @ 19:57 by Rubens Weiner MD) Depression (Chronic) Anxiety (Chronic) Eloped from emergency department (Acute) Asthma (Chronic) Venous insufficiency of both lower extremities (Acute) Nail dystrophy (Acute) Ingrown toenail of right foot (Acute) Onychomycosis (Acute) Fracture of patella, left, closed (Acute 12/01/22) Olecranon bursitis of right elbow (Acute) Right elbow pain (Acute) Nonsustained ventricular tachycardia (Acute) JOHANNE (obstructive sleep apnea) (Chronic) trilogy use Obesity, morbid, BMI 40.0-49.9 (Chronic) Tobacco dependence (Chronic) Pulmonary hypertension (Chronic) Subclinical hypothyroidism (Chronic) Discharge planning issues (Acute) DVT prophylaxis (Acute) Secondary polycythemia (Chronic) Acute on chronic respiratory failure with hypoxia and hypercapnia (Acute) Polycythemia secondary to smoking (Chronic) Hypoxemia (Acute) Exacerbation of asthma (Acute) 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 A1C checked annually by PCP Family History Other Adopted Social History Smoking/Tobacco Use Status: Current every day Tobacco Type: cigarettes Tobacco: How many years used: 20 Smoking risk assessment performed?: Yes Alcohol Intake: former Drug use: Occasionally Substance use type: marijuana Details: last smoked marijuana 2 weeks ago. 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 He did not complete high school. He has 2 daughters who live with their mother; ages 8 and 10. Discharge Plan Disposition Patient Disposition: Home Condition: Improving Discharge Details Chief Complaint: PsychEval Clinical Impression: Depression Primary Care Provider: Vinicio Corley ED Provider: Rubens Weiner Home Meds and New Rx's Prescriptions: No Action Januvia 100 mg tablet 50 mg PO DAILY budesonide-formoterol [Symbicort] 80-4.5 mcg/actuation HFA aerosol inhaler 2 puff IH BID Rx Instructions: PCP list states 160-4.5 dose. acetaminophen [Tylenol] 325 MG tablet 325 mg PO Q4H PRN ibuprofen 200 mg capsule 400 mg PO TID PRN Discharge Instructions Instructions: Depression (ED) Additional Instructions: Please comply with safety plan as presented by [facility]. Please return to the emergency department for any worsening symptoms.
[2023-07-25 17:46] LABS: Abs Immature Grans 0.04 10^3/uL (0.0-0.06); Absolute Basophil Count 0.09 10^3/uL (0.0-0.2); Absolute Eosinophil Count 0.06 10^3/uL (0.0-0.7); Absolute Lymphocyte Count 1.97 10^3/uL (1.2-3.4); Absolute Monocyte Count 0.65 10^3/uL (0.1-0.8); Absolute Neutrophil Count 8.26 10^3/uL (1.2-6.7); Basophils % 0.8; Eosinophils % 0.5; HCT 54.1 % (40.0-50.0); HGB 18.3 g/dL (13.5-17.5); Immature Grans % 0.4; Lymphocytes % 17.8; MCH 29.3 pg (27.0-33.0); MCHC 33.8 % (32.0-36.0); MCV 87 fL (80-95); MPV 12.5 fL (8.0-11.0); Monocytes % 5.9; Neutrophils % 74.6; Platelet Count 206 10^3/uL (130-400); RBC 6.24 10^6/uL (4.36-5.78); RDW 12.5 % (11.8-14.1); RDW-SD 39.6 fL; WBC 11.07 10^3/uL (4.4-10.8)
[2023-07-25] MEDS: LORazepam 2 MG/ML VIAL 1 MG IVP (17:53)
[2023-07-25] MEDS: Normal Saline 1,000 ML 1000 ML IV (17:53)
[2023-07-25] MEDS: Ketorolac 15 MG/ML VIAL IVP (17:53)
[2023-07-25 17:59] LABS: Acetaminophen < 2 ug/mL (10-30); INR 1.1 (0.9-1.1); PTT Activated 27.6 sec (23.6-32.8); Prothrombin Time 11.2 sec (9.1-11.1)
[2023-07-25 18:10] LABS: ALT 122 U/L (16-63); AST 42 U/L (15-37); Albumin 4.6 g/dL (3.4-5.0); Alkaline Phosphatase 71 U/L (46-116); Anion Gap 9.5 mmol/L (3-11); BUN 8 mg/dL (7-18); Bilirubin, Total 0.7 mg/dL (0.2-1.0); CO2 31.5 mmol/L (21.0-32.0); CREATININE 0.8 mg/dL (0.70-1.30); Calcium 9.7 mg/dL (8.5-10.1); Chloride 101 mmol/L (98-107); Estimated GFR 112.61 (mL/min/1.73m2); Glucose 92 mg/dL (74-106); Magnesium 2.3 mg/dL (1.8-2.4); Potassium 3.7 mmol/L (3.5-5.1); Sodium 142 mmol/L (136-145); TSH (W/Ref FT4) 1.57 uIU/mL (0.36-3.74); Total Protein 8.5 g/dL (6.4-8.2); Troponin I < 50 ng/L (< or =60)
[2023-07-25 18:15] LABS: Bilirubin Negative (Negative); Blood Negative (Negative); Clarity Clear (Clear); Glucose Negative (Negative); Ketones Negative (Negative); Leukocyte Esterase Negative (Negative); Nitrite Negative (Negative); Urobilinogen 0.2 mg/dL (Up to 0.2); pH 6.5 (5-8)
[2023-07-25 18:19] LABS: ETHANOL BLOOD < 3.0 mg/dL (<10)
[2023-07-25 18:24] LABS: Creatine Kinase 427 U/L (39-308)
[2023-07-25 18:30] LABS: *AMPHETAMINES SCREEN URINE Negative (Negative); *BARBITURATES SCREEN URINE Negative (Negative); *BENZODIAZEPINES SCREEN URINE Negative (Negative); Cannabinoids THC Positive (Negative); Cocaine Screen,Urine Negative (Negative); METHADONE URINE SCREEN Negative (Negative); OPIATES URINE SCREEN Negative (Negative)
[2023-07-25 18:31] LABS: Tricyclic Antidepressants Negative (Negative)
[2023-07-25 20:03] VITALS: BP 173/121; PULSE 89; RESP 15; TEMP 36.4; O2SAT 100
--- NOTE | 2023-07-27 07:23 | NUR.NOTE ---
Accessed chart to determine orders for EKG and to determine whether or not one needs to be cancelled. Nursing Note:
[2023-07-29 10:02] LABS: Lyme Ab w Rflx to Lyme Confirm Negative (Negative)
[2023-07-29 16:39] LABS: Anaplasma phagocytophilum Negative (Negative); B. miyamotoi PCR Negative (Negative); Babesia divergens/MO-1 Negative (Negative); Babesia duncani Negative (Negative); Babesia microti Negative (Negative); Ehrlichia chaffeensis Negative (Negative); Ehrlichia ewingii/canis Negative (Negative); Ehrlichia muris eauclairensis Negative (Negative)
--- NOTE | 2023-08-01 12:17 | NUR.NOTE ---
Accessed pt chart to determine number of EKG orders. EKG now matched to this account.Nursing Note:
== END 2023-07-25 20:04 | disposition home or self-care (01) ==
PROVIDERS: Emergency Provider Emergency Medicine; PCP Physician Assistant
DX: R06.02 Shortness of breath (principal); F32.1 Major depressive disorder, single episode, moderate; R45.851 Suicidal ideations; F17.210 Nicotine dependence, cigarettes, uncomplicated
CPT/HCPCS: 80053; 80307; 82550; 87798; 93005; 96361; 96374; 96375; 99284; 70450; 71046; 80320; 80329; 81003; 83735; 84443; 84484; 85025; 85610; 85730; 86618; 93010; J1885; J2060

== ENCOUNTER 2023-09-25 11:12 | Emergency (ER) | payer MEDICAID, SELFPAY ==
[2023-09-25 11:15] VITALS: BP 154/97; PULSE 97; RESP 18; TEMP 37.1; O2SAT 98
[2023-09-25] MEDS: Lactated Ringers 1,000 ML 1000 ML IV (11:42)
[2023-09-25 11:44] LABS: Abs Immature Grans 0.04 10^3/uL (0.0-0.06); Absolute Lymphocyte Count 1.27 10^3/uL (1.2-3.4); Absolute Monocyte Count 0.58 10^3/uL (0.1-0.8); Basophils % 0.5; Eosinophils % 0.5; HCT 47.2 % (40.0-50.0); HGB 16.1 g/dL (13.5-17.5); Immature Grans % 0.4; Lymphocytes % 11.5; MCH 29.9 pg (27.0-33.0); MCHC 34.1 % (32.0-36.0); MCV 88 fL (80-95); MPV 12.3 fL (8.0-11.0); Monocytes % 5.2; Neutrophils % 81.9; Platelet Count 181 10^3/uL (130-400); RBC 5.39 10^6/uL (4.36-5.78); RDW-SD 41.8 fL; WBC 11.06 10^3/uL (4.4-10.8)
[2023-09-25 11:45] LABS: Absolute Basophil Count 0.06 10^3/uL (0.0-0.2); Absolute Eosinophil Count 0.06 10^3/uL (0.0-0.7); Absolute Neutrophil Count 9.06 10^3/uL (1.2-6.7)
[2023-09-25 12:08] LABS: ALT 107 U/L (16-63); AST 41 U/L (15-37); Albumin 3.9 g/dL (3.4-5.0); Alkaline Phosphatase 74 U/L (46-116); Anion Gap 7.3 mmol/L (3-11); BUN 11 mg/dL (7-18); Bilirubin, Total 0.8 mg/dL (0.2-1.0); CO2 28.7 mmol/L (21.0-32.0); CREATININE 0.7 mg/dL (0.70-1.30); Calcium 8.8 mg/dL (8.5-10.1); Chloride 102 mmol/L (98-107); Creatine Kinase 449 U/L (39-308); Estimated GFR 117.25 (mL/min/1.73m2); Glucose 180 mg/dL (74-106); Lipase 31 U/L (16-77); Potassium 3.9 mmol/L (3.5-5.1); Sodium 138 mmol/L (136-145); TSH (W/Ref FT4) 1.44 uIU/mL (0.36-3.74); Total Protein 7.2 g/dL (6.4-8.2)
--- NOTE | 2023-09-25 12:16 | W.ED.GENAD ---
Discharge Plan Disposition Patient Disposition: Home Condition: Good Discharge Details Clinical Impression: Acute right otitis media Primary Care Provider: Vinicio Corley ED Provider: Lane Bui Home Meds and New Rx's Prescriptions: New amoxicillin-pot clavulanate 875-125 mg tablet 1 tab PO BID 7 Days Qty: 14 0RF No Action Januvia 100 mg tablet 50 mg PO DAILY budesonide-formoterol [Symbicort] 80-4.5 mcg/actuation HFA aerosol inhaler 2 puff IH BID Rx Instructions: PCP list states 160-4.5 dose. acetaminophen [Tylenol] 325 MG tablet 325 mg PO Q4H PRN ibuprofen 200 mg capsule 400 mg PO TID PRN Discharge Instructions Instructions: Ear Infection (ED) Additional Instructions: At this time you have a right-sided ear infection. Please take the antibiotic as directed. Stay well-hydrated and drink plenty of fluids. Take the anxiolytic out of it medication only as needed. If you notice any worsening of your symptoms, or any new symptoms such as vomiting, diarrhea, fever, chills, shortness of breath, chest pain, numbness, weakness, or fainting , please return immediately to the emergency department for reevaluation. Please follow up with your primary care provider as soon as possible for reassessment and reevaluation. As always, it was a pleasure participating in your medical care today. Referrals: Vinicio Corley [Primary Care Provider] - [facility] General Date/Time Provider Initiated Documentation: 09/25/23 11:18. HPI Narrative: 43-year-old male with a past medical history of muscular dystrophy, asthma, pulmonary hypertension, subclinical hypothyroidism not currently on any thyroid medication, who presents today for right ear drainage. Patient states that about 3 days ago he noticed some drainage and discharge from his right ear, there is also small bit of blood. He had pain there. He has some slight dizziness after this. He feels generally off and weak. He denies any chest pain or shortness of breath or headache. He does state that he feels somewhat unsafe because of this, he denies any homicidal or suicidal ideations. He denies any auditory visual hallucinations. He has no other complaints at this time. No other modifying factors. He does see mental health advocates on an outpatient basis, but does not want to see any today. Related Data Home Medications Medication Instructions Recorded Confirmed acetaminophen 325 mg tablet 325 mg PO Q4H PRN 09/26/16 09/18/23 (Tylenol) ibuprofen 200 mg capsule 400 mg PO TID PRN 08/04/19 09/18/23 sitagliptin phosphate 100 mg 50 mg PO DAILY 03/03/21 09/18/23 tablet (Januvia) budesonide-formoterol HFA 80 2 puff inhalation BID 09/27/22 09/18/23 mcg-4.5 mcg/actuation aerosol inhaler (Symbicort) amoxicillin 875 mg-potassium 1 tab PO BID 7 days #14 tabs 09/25/23 clavulanate 125 mg tablet Previous Rx's Medication Instructions Recorded amoxicillin 875 mg-potassium 1 tab PO BID 7 days #14 tabs 09/25/23 clavulanate 125 mg tablet Allergies Allergy/AdvReac Type Severity Reaction Status Date / Time house dust Allergy Intermediate Wheezing Verified 09/18/23 08:40 General Stated Complaint: Dizzy/Sync [place]: 3 Review of Systems All systems reviewed & are unremarkable except as noted in HPI and below Exam Narrative Exam Narrative: 1.Const: Well-nourished, Well-developed, appearing stated age 2.Eyes: PERRL, no conjunctival injection, and symmetrical lids. 3.ENT: Atraumatic external nose and ears. Moist MM. Neck: Symmetric, trachea midline, No thyromegaly. Left tympanic membrane is vasquez and pearly, right tympanic membrane demonstrates scab on the tympanic membrane, small amount of effusion, some what appears to be old crusted drainage in the right ear. Evidence of questionable mild lower effusion. 4.CVS: +S1/S2, No murmurs or gallops. Peripheral pulses 2+ and equal in all extremities. Brisk capillary refill in all extremities. 5.RESP: Unlabored respiratory effort. Clear to auscultation bilaterally. No wheezes rales or rhonchi 6.GI: Soft, Nontender/Nondistended, No hepatosplenomegaly. No guarding or rebound. 7.MSK: Normocephalic/Atraumatic, Extremities w/o deformity or ttp No cyanosis or clubbing, Normal movement of all extremities 8.Skin: Warm, Dry. No rashes or lesions. 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 Sensation grossly intact, no focal neurologic deficits. 10.Psych: (AAO) x3. Appropriate mood and affect Course Vital Signs Vital signs: Vital Signs Temperature 37.1 C 09/25/23 11:15 Pulse 97 H 09/25/23 11:15 Respiratory Rate 18 09/25/23 11:15 Blood Pressure 154/97 H 09/25/23 11:15 Pulse Oximetry 98 09/25/23 11:15 Temperature 37.1 C 09/25/23 11:15 Temperature Source Temporal Artery Scan 09/25/23 11:15 Pulse 97 H 09/25/23 11:15 Respiratory Rate 18 09/25/23 11:15 Respiratory Effort Normal 09/25/23 11:39 Blood Pressure 154/97 H 09/25/23 11:15 Blood Pressure Position Sitting 09/25/23 11:15 Pulse Oximetry 98 09/25/23 11:15 Oxygen Delivery Method Room Air 09/25/23 11:15 Oxygen Flow Rate 0 09/25/23 11:15 Lab/Test Results Lab/Test Results: Laboratory Tests Range/Units 09/25/23 11:40 WBC (4.4-10.8) 10^3/uL 11.06 H RBC (4.36-5.78) 10^6/uL 5.39 Hgb (13.5-17.5) g/dL 16.1 Hct (40.0-50.0) % 47.2 MCV (80-95) fL 88 MCH (27.0-33.0) pg 29.9 MCHC (32.0-36.0) % 34.1 RDW (11.8-14.1) % 13.0 Plt Count (130-400) 10^3/uL 181 MPV (8.0-11.0) fL 12.3 H Immature Gran % 0.4 Neutrophils % 81.9 Lymphocytes % 11.5 Monocytes % 5.2 Eosinophils % 0.5 Basophils % 0.5 Nucleated RBC % (0.0-0.3) % 0.0 Absolute Neutrophils (1.2-6.7) 10^3/uL 9.06 H Absolute Lymphocytes (1.2-3.4) 10^3/uL 1.27 Absolute Monocytes (0.1-0.8) 10^3/uL 0.58 Absolute Eosinophils (0.0-0.7) 10^3/uL 0.06 Absolute Basophils (0.0-0.2) 10^3/uL 0.06 Sodium (136-145) mmol/L 138 Potassium (3.5-5.1) mmol/L 3.9 Chloride (98-107) mmol/L 102 Carbon Dioxide (21.0-32.0) mmol/L 28.7 Anion Gap (3-11) mmol/L 7.3 BUN (7-18) mg/dL 11 Creatinine (0.70-1.30) mg/dL 0.7 Est GFR (CKD-EPI 2020) (mL/min/1.73m2) 117.25 Glucose (74-106) mg/dL 180 H Calcium (8.5-10.1) mg/dL 8.8 Total Bilirubin (0.2-1.0) mg/dL 0.8 AST (15-37) U/L 41 H ALT (16-63) U/L 107 H Alkaline Phosphatase (46-116) U/L 74 Creatine Kinase (39-308) U/L 449 H Total Protein (6.4-8.2) g/dL 7.2 Albumin (3.4-5.0) g/dL 3.9 Lipase (16-77) U/L 31 TSH (0.36-3.74) uIU/mL 1.44 Medical Decision Making 43-year-old male with a past medical history of muscular dystrophy, asthma, pulmonary hypertension, subclinical hypothyroidism not currently on any thyroid medication, who presents today for right ear drainage. Patient states that about 3 days ago he noticed some drainage and discharge from his right ear, there is also small bit of blood. He had pain there. He has some slight dizziness after this. He feels generally off and weak. He denies any chest pain or shortness of breath or headache. He does state that he feels somewhat unsafe because of this, he denies any homicidal or suicidal ideations. He denies any auditory visual hallucinations. He has no other complaints at this time. No other modifying factors. He does see mental health advocates on an outpatient basis, but does not want to see any today. Exam demonstrates slightly nervous male with an atypical affect. He appears quite worried that something very concerning could be going on, but he is having a challenging time verbalizing exactly what that could be. Exam demonstrates evidence of a previously ruptured right-sided otitis media, small amount of old blood still in the ear canal, small amount of effusion persistent in the tympanic membrane. Normally with the patient's physical exam and vital signs I would not feel additional workup is indicated, however he does verbalize that he has significant concern that something else could be going on. We will get some basic labs, look a little deeper see if anything else atypical is occurring. No evidence of mastoid tenderness, trismus, malignant otitis externa, mastoiditis or other abnormality otherwise. No chest pain or shortness of breath. No nuchal rigidity. 12:34 PM Laboratory workup shows minimally elevated white count at 11, no bandemia, electrolytes normal, lipase and thyroid function normal. Patient does have a slightly elevated CPK, however this appears to be at his normal level, no evidence of rhabdomyolysis. He was given a liter of lactated Ringer's for rehydration out of an abundance of precaution. Transaminases are slightly elevated but also appear to be around his baseline. Patient did ask for something for anxiety, he will be given 0.5 mg of Ativan to go home with, however I instructed him that this is only to be taken once he goes home and he is no longer driving. I again offered to get additional resources and help on an outpatient basis especially for counseling, the patient has declined. Patient will be discharged home. Will prescribe Augmentin for treatment. He is given a first dose here. Discussed red flags which to return. I have extensively reviewed the treatment plan and discharge instructions with the patient. I have addressed all patient concerns at this time. The patient was made aware of what symptoms to monitor for that would warrant a return to the emergency department. Discussed the plan with the patient, they demonstrate verbal understanding and agreement with our assessment and plan at this time. The documentation in this chart was dictated using [employer] dictation software. Please excuse any dictation errors. Quality:SDOH Health Related Social Needs: No Data to Display PFSH All Active Problems (Updated 09/25/23 @ 12:[address]ui DO) Acute right otitis media (Acute) Low back pain (Acute) Asthma (Chronic) Venous insufficiency of both lower extremities (Acute) Nail dystrophy (Acute) Ingrown toenail of right foot (Acute) Onychomycosis (Acute) Fracture of patella, left, closed (Acute 12/01/22) Olecranon bursitis of right elbow (Acute) Right elbow pain (Acute) Nonsustained ventricular tachycardia (Acute) JOHANNE (obstructive sleep apnea) (Chronic) trilogy use Obesity, morbid, BMI 40.0-49.9 (Chronic) Tobacco dependence (Chronic) Pulmonary hypertension (Chronic) Subclinical hypothyroidism (Chronic) Discharge planning issues (Acute) DVT prophylaxis (Acute) Secondary polycythemia (Chronic) Acute on chronic respiratory failure with hypoxia and hypercapnia (Acute) Polycythemia secondary to smoking (Chronic) Hypoxemia (Acute) Exacerbation of asthma (Acute) 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 A1C checked annually by PCP Family History Other Adopted Social History Smoking/Tobacco Use Status: Current every day Tobacco Type: cigarettes Tobacco: How many years used: 20 Smoking risk assessment performed?: Yes Alcohol Intake: former Drug use: Occasionally Substance use type: marijuana Details: last smoked marijuana 2 weeks ago. 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 He did not complete high school. He has 2 daughters who live with their mother; ages 8 and 10.
[2023-09-25] MEDS: LORazepam 0.5 MG TAB PO (12:27)
[2023-09-25] MEDS: Amoxicillin 875/Clav. 125 TAB PO (12:28)
== END 2023-09-25 12:34 | disposition home or self-care (01) ==
PROVIDERS: Emergency Provider Student in an Organized Health Care Education/Training Program; PCP Physician Assistant
DX: H66.91 Otitis media, unspecified, right ear (principal); R42 Dizziness and giddiness; R53.1 Weakness; F41.9 Anxiety disorder, unspecified; G71.00 Muscular dystrophy, unspecified
CPT/HCPCS: 80053; 82550; 83690; 96360; 99284; 84443; 85025; 99283

== ENCOUNTER 2023-10-20 19:27 | Emergency (ER) | payer MEDICAID, SELFPAY ==
[2023-10-20 19:39] VITALS: BP 153/116; PULSE 97; RESP 22; TEMP 36.5; O2SAT 97
--- NOTE | 2023-10-20 19:45 | RT.EKG_ITS ---
APPROVED REPORT Exam: Resting ECG Reason for Exam: pt stated chest discomfort Patient Location: E HR:93 bpm ECG Measurements Heart Rate 93 AXIS ID 106 P 25 QRSd 105 QRS -34 QT 359 T 21 QTc 446 Conclusion Sinus rhythm...normal P axis, V-rate 60- 99 Left axis deviation...QRS axis (-30,-90) Low voltage, precordial leads...precordial leads <1.0mV limited 2/t baseline artifact multiple leads within those limitations, no ST segment or T wave abnormalities to suggest occlusive [place]
--- NOTE | 2023-10-20 20:28 | ED.GENADUL_ITS ---
Discharge Plan Disposition Patient Disposition: Eloped Condition: Good Discharge Details Clinical Impression: Chest pain Primary Care Provider: Vinicio Corley ED Provider: Ana Paula Crum Home Meds and New Rx's Prescriptions: Continued Januvia 100 mg tablet 50 mg PO DAILY budesonide-formoterol [Symbicort] 80-4.5 mcg/actuation HFA aerosol inhaler 2 puff IH BID Rx Instructions: PCP list states 160-4.5 dose. nicotine 21 mg/24 hr patch 24 hour 1 patch transdermal DAILY acetaminophen [Tylenol] 325 MG tablet 325 mg PO Q4H PRN ibuprofen 200 mg capsule 400 mg PO TID PRN ciprofloxacin HCl 250 mg tablet 250 mg PO BID Discharge Instructions Instructions: Chest Pain (ED) Additional Instructions: Call your primary care doctor today to schedule an appointment for within the next 3 days to followup on your visit here. Return to the emergency department for new or worsening symptoms including new/different/worse chest pain, difficulty breathing, or if you have any other concerns. Referrals: Vinicio Corley [Primary Care Provider] - [facility] General Mode of arrival: ambulatory . Date/Time Provider Initiated Documentation: 10/20/23 19:46 . Limitations to Documentation: no limitations . Information obtained by: patient . HPI Narrative: 43yo M with hx of muscular dystrophy, asthma, anxiety, presenting with two days of chest discomfort. Has had constant dull substernal chest 'tightness', waxing and waning in severity. No shortness of breath, wheeze, or LE edema. Seems to be somewhat worse when moving around. Nothing seems to make it better. No palpitations, lightheadedness, or presyncope. He is otherwise in his usual state of health with no fevers, chills, rash, nasuea, vomiting, abdominal pain, flank pain, or other concerns. Related Data Home Medications Medication Instructions Recorded Confirmed acetaminophen 325 mg tablet 325 mg PO Q4H PRN 09/26/16 10/20/23 (Tylenol) ibuprofen 200 mg capsule 400 mg PO TID PRN 08/04/19 10/20/23 sitagliptin phosphate 100 mg 50 mg PO DAILY 03/03/21 10/20/23 tablet (Januvia) budesonide-formoterol HFA 80 2 puff inhalation BID 09/27/22 10/20/23 mcg-4.5 mcg/actuation aerosol inhaler (Symbicort) nicotine 21 mg/24 hr daily 1 patch transdermal DAILY 10/04/23 10/20/23 transdermal patch ciprofloxacin HCl 250 mg tablet 250 mg PO BID 10/20/23 10/20/23 Allergies Allergy/AdvReac Type Severity Reaction Status Date / Time house dust Allergy Intermediate Wheezing Verified 10/10/23 08:35 General Stated Complaint: PsychEval [place]: 2 Review of Systems Narrative: see HPI Exam Narrative Exam Narrative: General: Alert, well appearing, well nourished, in no acute distress. Head: Normocephalic, atraumatic Neck: Trachea midline, ?Neck supple. ENT: ?MMM.? No oropharygeal lesions or exudate. Cardiac: ?RRR, no murmurs appreciated Resp: No respiratory distress. CTAB. Abd: ?Soft, non-distended, nontender : ?No suprapubic tenderness. No CVA tenderness. Extremities: ?No deformities.? No peripheral edema. Neurologic: GCS 15. ? Moves all extremities freely against gravity Course Vital Signs Vital signs: Vital Signs Temperature 36.5 C 10/20/23 19:39 Pulse 97 H 10/20/23 19:39 Respiratory Rate 22 10/20/23 19:39 Blood Pressure 153/116 H 10/20/23 19:39 Pulse Oximetry 97 10/20/23 19:39 Temperature 36.5 C 10/20/23 19:39 Temperature Source Oral 10/20/23 19:39 Pulse 97 H 10/20/23 19:39 Respiratory Rate 22 10/20/23 19:39 Blood Pressure 153/116 H 10/20/23 19:39 Blood Pressure Position Sitting 10/20/23 19:39 Pulse Oximetry 97 10/20/23 19:39 Oxygen Delivery Method Room Air 10/20/23 19:39 Oxygen Flow Rate 0 10/20/23 19:39 Pain Level 0 10/20/23 19:39 Medical Decision Making 43yo M with hx of muscular dystrophy, asthma, anxiety, presenting with two days of chest discomfort. Has had constant dull substernal chest 'tightness', waxing and waning in severity. He is concerned it may be his heart. No shortness of breath or pleuritic component to suggest pulmonary embolism or asthma exacerbation. Hypertensive with SBP 150's on arrival, vital signs otherwise alfreda ssuring. Benign physical exam, no wheezing or increased work of breathing. No chest wall tenderness. EKG with no ST segment or T wave abnormalities to suggest occlusive [place]. Labs reviewed as below, CBC reassuring with no leukocytosis or anemia, CMP with normal electrolytes. Slight elevations in AST and ALT not new on [facility] record review and patient with no RUQ tenderness on exam. Lipase normal, not pancreatitis. On reassessment he remains well appearing with reassuring vital signs, requests discharge home. Tropnin remains pending; advised patient to stay for result. He subsequently eloped from the department. Troponin ultimately resulted as negative. HEART score 1, low risk. Discharge instructions mailed to the patient. Lab Data Lab results reviewed: Yes I reviewed the patient's lab results. Labs: Laboratory Tests Range/Units 10/20/23 20:57 WBC (4.4-10.8) 10^3/uL 8.18 RBC (4.36-5.78) 10^6/uL 5.32 Hgb (13.5-17.5) g/dL 16.0 Hct (40.0-50.0) % 46.9 MCV (80-95) fL 88 MCH (27.0-33.0) pg 30.1 MCHC (32.0-36.0) % 34.1 RDW (11.8-14.1) % 12.7 Plt Count (130-400) 10^3/uL 194 MPV (8.0-11.0) fL 12.0 H Immature Gran % % 0.2 Neutrophils % % 66.9 Lymphocytes % % 23.5 Monocytes % % 7.5 Eosinophils % % 1.0 Basophils % % 0.9 Nucleated RBC % (0.0-0.3) % 0.0 Absolute Neutrophils (1.2-6.7) 10^3/uL 5.48 Absolute Lymphocytes (1.2-3.4) 10^3/uL 1.92 Absolute Monocytes (0.1-0.8) 10^3/uL 0.61 Absolute Eosinophils (0.0-0.7) 10^3/uL 0.08 Absolute Basophils (0.0-0.2) 10^3/uL 0.07 Sodium (136-145) mmol/L 140 Potassium (3.5-5.1) mmol/L 3.5 Chloride (98-107) mmol/L 102 Carbon Dioxide (21.0-32.0) mmol/L 28.2 Anion Gap (3-11) mmol/L 9.8 BUN (7-18) mg/dL 8 Creatinine (0.70-1.30) mg/dL 0.6 L Est GFR (CKD-EPI 2020) (mL/min/1.73m2) 122.83 Glucose (74-106) mg/dL 115 H Calcium (8.5-10.1) mg/dL 8.8 Total Bilirubin (0.2-1.0) mg/dL 0.9 AST (15-37) U/L 50 H ALT (16-63) U/L 112 H Alkaline Phosphatase (46-116) U/L 67 Troponin I (< or =60) ng/L < 50 Total Protein (6.4-8.2) g/dL 7.1 Albumin (3.4-5.0) g/dL 3.9 Lipase (16-77) U/L 27 Quality:SDOH Health Related Social Needs: No Data to Display PFSH All Active Problems (Updated 10/20/23 @ 22:12 by Ana Paula Crum MD) Chest pain (Acute) Ulcer of right foot limited to breakdown of skin (Acute) Paresthesias (Acute) Muscular dystrophies (Acute) Anxiety disorder (Acute) Acute right otitis media (Acute) Low back pain (Acute) Asthma (Chronic) Venous insufficiency of both lower extremities (Acute) Nail dystrophy (Acute) Ingrown toenail of right foot (Acute) Onychomycosis (Acute) Fracture of patella, left, closed (Acute 12/01/22) Olecranon bursitis of right elbow (Acute) Right elbow pain (Acute) Nonsustained ventricular tachycardia (Acute) JOHANNE (obstructive sleep apnea) (Chronic) trilogy use Obesity, morbid, BMI 40.0-49.9 (Chronic) Tobacco dependence (Chronic) Pulmonary hypertension (Chronic) Subclinical hypothyroidism (Chronic) Discharge planning issues (Acute) DVT prophylaxis (Acute) Secondary polycythemia (Chronic) Acute on chronic respiratory failure with hypoxia and hypercapnia (Acute) Polycythemia secondary to smoking (Chronic) Hypoxemia (Acute) Exacerbation of asthma (Acute) 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 A1C checked annually by PCP V-tach Family History Other Adopted Social History Smoking/Tobacco Use Status: Current every day Tobacco Type: cigarettes Tobacco: How many years used: 20 Smoking risk assessment performed?: Yes Alcohol Intake: former Drug use: Occasionally Substance use type: marijuana Details: last smoked marijuana 2 weeks ago. 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 He did not complete high school. He has 2 daughters who live with their mother; ages 8 and 10.
[2023-10-20 21:03] LABS: Abs Immature Grans 0.02 10^3/uL (0.0-0.06); Absolute Basophil Count 0.07 10^3/uL (0.0-0.2); Absolute Eosinophil Count 0.08 10^3/uL (0.0-0.7); Absolute Lymphocyte Count 1.92 10^3/uL (1.2-3.4); Absolute Monocyte Count 0.61 10^3/uL (0.1-0.8); Absolute Neutrophil Count 5.48 10^3/uL (1.2-6.7); Basophils % 0.9 %; HCT 46.9 % (40.0-50.0); Immature Grans % 0.2 %; Lymphocytes % 23.5 %; MCH 30.1 pg (27.0-33.0); MCHC 34.1 % (32.0-36.0); MCV 88 fL (80-95); Monocytes % 7.5 %; Neutrophils % 66.9 %; Platelet Count 194 10^3/uL (130-400); RBC 5.32 10^6/uL (4.36-5.78); RDW 12.7 % (11.8-14.1); WBC 8.18 10^3/uL (4.4-10.8)
[2023-10-20 21:32] LABS: ALT 112 U/L (16-63); AST 50 U/L (15-37); Albumin 3.9 g/dL (3.4-5.0); Alkaline Phosphatase 67 U/L (46-116); Anion Gap 9.8 mmol/L (3-11); BUN 8 mg/dL (7-18); Bilirubin, Total 0.9 mg/dL (0.2-1.0); CO2 28.2 mmol/L (21.0-32.0); CREATININE 0.6 mg/dL (0.70-1.30); Calcium 8.8 mg/dL (8.5-10.1); Chloride 102 mmol/L (98-107); Estimated GFR 122.83 (mL/min/1.73m2); Glucose 115 mg/dL (74-106); Lipase 27 U/L (16-77); Potassium 3.5 mmol/L (3.5-5.1); Sodium 140 mmol/L (136-145); Total Protein 7.1 g/dL (6.4-8.2); Troponin I < 50 ng/L (< or =60)
--- NOTE | 2023-10-20 21:44 | NUR.NOTE ---
Pt Eloped, stated he did not want to wait for results of his blood work, pt denied SI or HI and has no plans to harm himself, Pt did not leave against medical advice but elopoed, he did not sign paperwork and was not discharged, DILIP
== END 2023-10-20 21:48 | disposition left against medical advice (07) ==
PROVIDERS: Emergency Provider Student in an Organized Health Care Education/Training Program; PCP Physician Assistant
DX: R07.9 Chest pain, unspecified (principal); I10 Essential (primary) hypertension; F41.9 Anxiety disorder, unspecified; Z53.29 Procedure and treatment not carried out because of patient's decision for other reasons
CPT/HCPCS: 80053; 83690; 93005; 99283; 84484; 85025; 93010

== ENCOUNTER 2023-10-21 05:03 | Outpatient (CLI) | payer MEDICAID, SELFPAY ==
[2023-10-21] MEDS: Levalbuterol HFA 15 GM INH 4 PUFF IH (11:45)
[2023-10-21] MEDS: Inhaler, Assist Device 1 EACH MC (11:46)
--- NOTE | 2023-10-22 15:00 | W.PFT ---
Date of service: 10/21/23 Time of Service: 10:10 Pulmonary Function Test Result Indications: Muscular dystrophy Interpretation Spirometry: There is moderate airflow limitation. No significant bronchodilator response. Restrictive appearing spirometry. Lung Volumes: Patient refused Diffusion Capacity: Patient refused Airway Pressure: Patient refused Impression Moderate airflow obstruction with no bronchodilator response and a low FVC. Clinical Correlation therefore is recommended.
== END 2023-10-21 05:04 | disposition home or self-care (01) ==
LOC: RT 05:03
PROVIDERS: PCP Physician Assistant; Visit Provider Student in an Organized Health Care Education/Training Program
DX: G71.00 Muscular dystrophy, unspecified (principal)
CPT/HCPCS: 94060

== ENCOUNTER 2023-10-24 16:12 | Emergency (ER) | payer MEDICAID, SELFPAY ==
[2023-10-24 16:14] VITALS: BP 165/102; PULSE 109; RESP 16; TEMP 36.3; O2SAT 98
--- NOTE | 2023-10-24 16:19 | ED.GENADUL_ITS ---
Discharge Plan Discharge Details Chief Complaint: PsychEval Clinical Impression: Acute psychosis, Paranoia Primary Care Provider: Vinicio Corley ED Provider: Oumar Parnell Meds and New Rx's Prescriptions: No Action Januvia 100 mg tablet 50 mg PO DAILY budesonide-formoterol [Symbicort] 80-4.5 mcg/actuation HFA aerosol inhaler 2 puff IH BID Rx Instructions: PCP list states 160-4.5 dose. nicotine 21 mg/24 hr patch 24 hour 1 patch transdermal DAILY acetaminophen [Tylenol] 325 MG tablet 325 mg PO Q4H PRN ibuprofen 200 mg capsule 400 mg PO TID PRN ciprofloxacin HCl 250 mg tablet 250 mg PO BID HPI General Mode of arrival: ambulatory . Date/Time Provider Initiated Documentation: 10/24/23 16:19 . Limitations to Documentation: no limitations . Information obtained by: patient, RN notes reviewed and old records reviewed . HPI Narrative: Patient presenting to ED requesting mental health evaluation. Patient is a little difficult to follow in regards to obtaining history. Reports being physically and mentally unwell. Requesting rehab but but denies any alcohol or drug use. He even stopped smoking. He feels unsafe at home but does not relate claim suicidal thoughts or actions. Does admit to severe anxiety. Feels like an antibiotic that he was placed on a couple weeks ago has caused him significant distress with pain everywhere, made a blood boil to the surface and wrapped itself around my heart. There is no physical complaint from the patient other than generalized pain. He was seen here in the ED on the for chest pain. He eloped from the department. Reports that he was placed on fluoxetine by primary care but he is no longer taking it. Only medicine that he is taking regularly is the Januvia. Related Data Home Medications Medication Instructions Recorded Confirmed acetaminophen 325 mg tablet 325 mg PO Q4H PRN 09/26/16 10/24/23 (Tylenol) ibuprofen 200 mg capsule 400 mg PO TID PRN 08/04/19 10/20/23 sitagliptin phosphate 100 mg 50 mg PO DAILY 03/03/21 10/24/23 tablet (Januvia) budesonide-formoterol HFA 80 2 puff inhalation BID 09/27/22 10/20/23 mcg-4.5 mcg/actuation aerosol inhaler (Symbicort) nicotine 21 mg/24 hr daily 1 patch transdermal DAILY 10/04/23 10/20/23 transdermal patch ciprofloxacin HCl 250 mg tablet 250 mg PO BID 10/20/23 10/24/23 Allergies Allergy/AdvReac Type Severity Reaction Status Date / Time house dust Allergy Intermediate Wheezing Verified 10/24/23 16:18 General Stated Complaint: PsychEval [place]: 2 Review of Systems Unobtainable due to mental condition Exam Narrative Exam Narrative: Const: WDWN male in NAD. VS per triage. HEENT: NC/AT. Normal facial exam. Eyes: Normal conjunctiva and sclera. Neck: Supple. Trachea midline. Lungs: Normal respiratory effort. Lungs are clear. Cor: RRR without murmur. Good radial pulses. Neuro: A+O x 3. Normal speech, gait. Cranial nerves II - XII grossly intact. No gross motor or sensory deficit. Psych: Anxious, pressured speech, definite signs of paranoid as well as delusional thinking. Course Vital Signs Vital signs: Vital Signs Temperature 97.3 F L 10/24/23 16:14 Pulse 109 H 10/24/23 16:14 Respiratory Rate 16 10/24/23 16:14 Blood Pressure 165/102 H 10/24/23 16:14 Pulse Oximetry 98 10/24/23 16:14 Temperature 97.3 F L 10/24/23 16:14 Temperature Source Skin 10/24/23 16:14 Pulse 109 H 10/24/23 16:14 Respiratory Rate 16 10/24/23 16:14 Blood Pressure 165/102 H 10/24/23 16:14 Blood Pressure Position Sitting 10/24/23 16:14 Pulse Oximetry 98 10/24/23 16:14 Oxygen Delivery Method Room Air 10/24/23 16:14 Oxygen Flow Rate 0 10/24/23 16:14 Comment back and head pain but unable to rate pain 10/24/23 16:14 Medical Decision Making Patient presenting to ED requesting mental health evaluation. I have reviewed his medical records, previous laboratory studies, previous EKG. Patient had presented to the pulmonary clinic on the sixth with the resulting code vasquez because of his aggressive and threatening behavior. Review of the note entered by Dr. Winter shows that PCP has had concerns regarding deteriorating mental health. With my interview with the patient is very difficult to keep on track, he is definitely pressured, he exhibits signs of paranoid and delusional thinking to a small degree. Currently he is willing to stay voluntarily, but given previous voiced concerns that are documented in the medical record as well as my independent evaluation today I would place an EE if required. His laboratory studies and EKG from the 12th are fine. I will get a fingerstick blood sugar but he is documented as prediabetes not definite diabetes and is only on Januvia. I have offered him Ativan to help with his anxiety and restlessness here. Written for as needed acetaminophen for headache and generalized pain. Cleared to be evaluated by mental health. Patient's urinalysis with no evidence of spilling glucose and a fingerstick is normal. Urine drug screen is negative. Again previous labs from just a few days ago unremarkable. Patient refusing to take the Ativan and is now demanding to leave. He does not trust us over the medication. Per his nurse who spoke to his mother she reports increased paranoid behavior, belief that the microwave is talking to him, and has been concerned for him over the last few weeks. Patient continues to be very anxious and agitated, pacing [id number], demanding to have the door open and so that he may leave the locked psychiatric unit. Continues to refuse Ativan. Because of his behavior here, documented behavior on the 6th up in pulmonary, refusal to take medications or stay for further evaluation, report of erratic and paranoid behavior by mother, I do believe he requires involuntary admission. As such I have filed the first petition. We are still waiting on [facility] provider to see. He will be signed out to the ED overnight physician pending mental health eval and 2nd cert interview. Medical Records Medical records reviewed: Yes I reviewed the patient's medical records. Lab Data Lab results reviewed: Yes I reviewed the patient's lab results. Quality:[facility] Health Related Social Needs: No Data to Display [facility] All Active Problems (Updated 10/24/23 @ 22:10 by Oumar Parnell MD) Paranoia (Acute) Acute psychosis (Acute) Chest pain (Acute) Ulcer of right foot limited to breakdown of skin (Acute) Paresthesias (Acute) Muscular dystrophies (Acute) Anxiety disorder (Acute) Acute right otitis media (Acute) Low back pain (Acute) Asthma (Chronic) Venous insufficiency of both lower extremities (Acute) Nail dystrophy (Acute) Ingrown toenail of right foot (Acute) Onychomycosis (Acute) Fracture of patella, left, closed (Acute 12/01/22) Olecranon bursitis of right elbow (Acute) Right elbow pain (Acute) Obesity, morbid, BMI 40.0-49.9 (Chronic) Tobacco dependence (Chronic) Subclinical hypothyroidism (Chronic) Discharge planning issues (Acute) DVT prophylaxis (Acute) Secondary polycythemia (Chronic) Acute on chronic respiratory failure with hypoxia and hypercapnia (Acute) Polycythemia secondary to smoking (Chronic) Hypoxemia (Acute) Exacerbation of asthma (Acute) Moderate persistent Medical History Fascioscapulohumeral muscular dystrophy (10/25/15) Pulmonary hypertension JOHANNE (obstructive sleep apnea) trilogy use Nonsustained ventricular tachycardia ADHD Depression with anxiety Prediabetes with history of steroid-induced hyperglycemia. A1C checked annually by PCP Family History Other Adopted Social History Smoking/Tobacco Use Status: Current every day Tobacco Type: cigarettes Tobacco: How many years used: 20 Smoking risk assessment performed?: Yes Alcohol Intake: former Drug use: Occasionally Substance use type: marijuana Details: last smoked marijuana 2 weeks ago. 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 He did not complete high school. He has 2 daughters who live with their mother; ages 8 and 10.
[2023-10-24] MEDS: Acetaminophen 325 MG TAB 650 MG PO (17:56)
[2023-10-24 18:18] VITALS: BP 154/102; PULSE 97; RESP 20; TEMP 36.8; O2SAT 99
[2023-10-24 18:19] LABS: Bilirubin Negative (Negative); Blood Negative (Negative); Clarity Clear (Clear); Glucose Negative (Negative); Ketones Negative (Negative); Leukocyte Esterase Negative (Negative); Nitrite Negative (Negative); Specific Gravity 1.015 (1.005-1.025); Urobilinogen 0.2 mg/dL (Up to 0.2)
[2023-10-24 18:51] LABS: *AMPHETAMINES SCREEN URINE Negative (Negative); *BARBITURATES SCREEN URINE Negative (Negative); *BENZODIAZEPINES SCREEN URINE Negative (Negative); Cannabinoids THC Negative (Negative); Cocaine Screen,Urine Negative (Negative); METHADONE URINE SCREEN Negative (Negative); OPIATES URINE SCREEN Negative (Negative)
[2023-10-24 18:52] LABS: Tricyclic Antidepressants Negative (Negative)
--- NOTE | 2023-10-24 22:39 | NUR.NOTE ---
Pt currently in with the nurse Gio Esqueda and nurse Sharona Foster in zone B pt appears agitated and paranoid. Nursing staff are trying to deescalate the situation.
--- NOTE | 2023-10-25 03:37 | PDOC.MHPN2 ---
Date of service: 10/24/23 Time of Service: 22:04 Suicide Severity Rate CSSRS Have you wished you were or wished you could go to sleep and not wake up?: No Have you actually had any thoughts of killing yourself?: No CSSRS2 Have you been thinking about how you might do this?: No Have you had these thoughts and had some intention of acting on them?: No Have you started to work out or worked out the details of how to kill yourself? Do you intend to carry out this plan?: No CSSRS3 Have you ever done anything, started to do anything or prepared to do anything to end your life?: No CSSRS4 Was this within the past three months?: No Screening Score Total Score: 0 Screening: Negative Mental Health Emergency Note Release [facility] release signed:: Yes Reason for Visit In the last 2 weeks has the pt presented for ES prior to today?: No Non Suicidal Self Injury Current: No History: No Safety Risk/Harm to Self or Others Current Ideation to Harm Self or Others: No Asssessment/Mental Status Appearance: Disheveled Attitude: Cooperative, Passive, Demanding and Hostile Behavior: Unremarkable, Hyperactivity and Repetitive movements Speech: Normal and Pressured Affect: Cogruent with mood Mood: Stressed, Anxious, Irritable and Angry Thought process: Unremarkable Hallucinations: No evidence Delusions: No evidence Attention: Unremarkable Perception: Not impaired Orientation: Fully orientated Memory: Intact Insight: Fair Judgement: Fair Substance Use: Other (Sober ) Have you used substances in the last 7 days?: yes, Ciggarettes Impression Per Dr. Parnell's report, client is being held on EE Status due to extreme delusions and parnia with no SI or HI. Dr. Parnell further report the client was at [facility] 10/14/23 and during this visit staff had to call a code hudson on the client for an unknown reason. Client is a large male whose appearance can at time be aggressive. [facility] security were present during the assessment for the safety of this underwriter due to concerns of aggression. Client reported that he didn't understand why he was currently being held, explaining that he came in with medically issues. This underwriter explain the situation of how he was being held involuntary and that a psychiatrist would come and speak to him in the morning. During the conversation this underwriter was standing in the nursing station about five feet from half open door.. The upper half of the door was open and the client was leaning on the lower half. Client did try to open to door to enter the nurses station in [facility] but was stopped by security. Client was then brought down to the table area with a nurse he is familiar with, Mame, and she started to explain the situation again. The client was asking to speak to Dr. Parnell, as he wanted to hear this information from him. This underwriter called down and asked for to come and speak to the client. After some time, Mame left the client went to get Mame Lan return with a male nurse. After the client spoke with mame and the male nurse, the client was ready to speak to this underwriter again. Client reported no SI, HI, NSSI. Client reported no history or SI, HI, or NSSI. Client reported that he was worried about how a medication he was prescribed was affecting his several medication conditions due to not feeling well. CLient reported no delusions or hallucinations. Client did not appear to be suffering from delusions or hallucinations. Client reported that he wanted to see the involuntary paperwork, client reported that he did not understand how we had the right to hold him involuntarily. Client was able to follow this writers questions and answered appropriately. Client reporting struggling with anxiety, and when he first admitted into the ED today, the client was interested in a rehabilitation program. Client further reported that due to his increasing anxiety he is concerned he will break his sobriety. Client is interesting in outpatient services. Plan/Disposition Recommended Disposition: Psych Screening. Plan: This underwriter informed Dr. Parnell that due to the client current presentation, that the client does not meet the needs for an involuntary hold. Based off of information provided by [facility] Shabana, Dr. Parnell was informed that he would need another Doctor to sign on on the EE due to this underwriter not supporting it. Dr. Parnell then informed this underwriter that she is wrong about involuntary status and that the ED has been waiting for a mental health response since 3:30pm. This underwriter informed Dr. Parnell she only found out about the client around 9:30pm and that if he had concerns about this writers assessment or the fact that a response took so long to get into contact with Luis Manuel Ospina or Tania Ricks. Client is still currently at [facility] in zone B on an involuntary status. Psychiatry will see the client in the morning and the client will potentially need to be safety planned home.? Reports/communication Outcome discussed with: ED/Personnel
[2023-10-25] MEDS: Nicotine 4 MG GUM CH ×2 (07:05→12:35)
[2023-10-25 07:12] VITALS: BP 152/95; PULSE 107; RESP 18; TEMP 36.6; O2SAT 95
--- NOTE | 2023-10-25 07:36 | W.EDPROG ---
Date of service: 10/25/23 Time of Service: 07:37 Medical Decision Making Patient was stable throughout the night. No interventions were needed until the morning at around 7 AM when the patient began to escalate. Patient was voluntarily given Zyprexa and Ativan, he excepted this. There was a incongruency for the expected disposition between mental health and the physician provider during the evening. Physician provider did fill out the EEE form, but the mental health advocate did not. We will reach back out to mental health this morning for further discussion. Quality:SDOH Health Related Social Needs: No Data to Display Sign Out Sign Out Data: Sign Out Comment: Patient presented for mental health eval. Has evidence of paranoid and delusional thinking, has already been escorted out of hospital for threatening staff up on 3rd floor. He is on an EE placed by me. Mental Health has seen and because he is no suicidal or homicidal thinks he is ok for discharge. I have disagreed and will leave EE in place for patient to be evaluated by state psychiatrist tomorrow. Last updated by Oumar Parnell MD at 10/24/23 23:30 Discharge Plan Discharge Details Chief Complaint: PsychEval Clinical Impression: Acute psychosis, Paranoia Primary Care Provider: Vinicio Corley ED Provider: Lane Bui Home Meds and New Rx's Prescriptions: No Action Januvia 100 mg tablet 50 mg PO DAILY budesonide-formoterol [Symbicort] 80-4.5 mcg/actuation HFA aerosol inhaler 2 puff IH BID Rx Instructions: PCP list states 160-4.5 dose. nicotine 21 mg/24 hr patch 24 hour 1 patch transdermal DAILY acetaminophen [Tylenol] 325 MG tablet 325 mg PO Q4H PRN ibuprofen 200 mg capsule 400 mg PO TID PRN ciprofloxacin HCl 250 mg tablet 250 mg PO BID
--- NOTE | 2023-10-25 13:29 | ED.PROG_ITS ---
Date of service: 10/25/23 Time of Service: 13:30 Medical Decision Making Care was signed out to me by Dr. Bui, please see his documentation regarding initial ED presentation course. [facility] declined to perform PE certification last night noting that the patient was not suicidal or homicidal. ED physician concerned with acute psychosis and felt EE warranted. Telepsychiatry consult was obtained. I spoke with the psychiatrist who noted concern for the patient's acute psychosis and stated that inpatient treatment would be of benefit. They acknowledge that the patient does not desire voluntary placement and would like to go home. They feel that on current evaluation patient is grounded enough to maintain safety at home but they are concerned that patient is high risk for worsening condition and may require emergency evaluation and treatment again in the near future. They have spoken with the patient's mother who will secure firearms in the home. They recommend outpatient follow-up with psychiatry. I had a lengthy conversation with the patient and was present for safety planning with [facility]. Safety plan was established. Patient's mother has agreed to secure firearms per psychiatrist. Patient is interested in following up with a primary care physician but would like to establish care with someone other than his current. I contacted care management who came to the emergency department to attempt to assist the patient in arranging for new primary care. Encouraged the patient to return at any time should he desire further treatment or as needed for worsening or new concerning symptoms. Lab Data Lab results reviewed: Yes I reviewed the patient's lab results. Labs: Laboratory Tests Range/Units 10/24/23 18:00 Urine Color (Yellow) Yellow Urine Clarity (Clear) Clear Urine pH (5-8) 6.0 Ur Specific [place] (1.005-1.025) 1.015 Urine Protein (Neg-Trace) mg/dL Negative Urine Ketones (Negative) mg/dL Negative Urine Blood (Negative) Negative Urine Nitrite (Negative) Negative Urine Bilirubin (Negative) Negative Urine Urobilinogen (Up to 0.2) mg/dL 0.2 Ur Leukocyte Esterase (Negative) Negative Urine Glucose (Negative) mg/dL Negative Urine Opiates Screen (Negative) Negative Urine Methadone Screen (Negative) Negative Ur Barbiturates Screen (Negative) Negative Ur Tricyclics Screen (Negative) Negative Ur Amphetamines Screen (Negative) Negative U Benzodiazepines Scrn (Negative) Negative Urine Cocaine Screen (Negative) Negative Ur THC Screen (Negative) Negative Quality:SDOH Health Related Social Needs: No Data to Display Sign Out Sign Out Data: Sign Out Comment: Patient presented for mental health eval. Has evidence of paranoid and delusional thinking, has already been escorted out of hospital for threatening staff up on 3rd floor. He is on an EE placed by me. Mental Health has seen and because he is no suicidal or homicidal thinks he is ok for johnny gonzalezholly. I have disagreed and will leave EE in place for patient to be evaluated by state psychiatrist tomorrow. Last updated by Oumar Parnell MD at 10/24/23 23:30 Sign Out Comment: Paranoia, anxiety, risk of self-harm. Patient placed on EE. Pending reassessment by mental health advocate in the morning. Did receive Zyprexa and Ativan at the end of my shift. Last updated by Lane Bui DO at 10/25/23 08:05 Discharge Plan Disposition Patient Disposition: Home Condition: Stable Discharge Details Clinical Impression: Acute psychosis, Paranoia Primary Care Provider: Vinicio Corley ED Provider: Ochoa Keith Home Meds and New Rx's Prescriptions: Continued Januvia 100 mg tablet 50 mg PO DAILY budesonide-formoterol [Symbicort] 80-4.5 mcg/actuation HFA aerosol inhaler 2 puff IH BID Rx Instructions: PCP list states 160-4.5 dose. nicotine 21 mg/24 hr patch 24 hour 1 patch transdermal DAILY acetaminophen [Tylenol] 325 MG tablet 325 mg PO Q4H PRN ibuprofen 200 mg capsule 400 mg PO TID PRN Discontinued ciprofloxacin HCl 250 mg tablet 250 mg PO BID Discharge Instructions Instructions: Psychotic Disorder (ED) Additional Instructions: Please follow-up with [facility] human services. Please follow safety plan that has been outlined with the crisis team. Please contact your primary care physician or another primary doctor to arrange follow-up. Return to the ER immediately for any worsening or new concerning symptoms. Referrals: [facility] [Outside] Vinicio Corley [Primary Care Provider] - Discharge Data Discharge Date/Time-TO BE ENTERED AT DEPARTURE: 10/25/23 14:28
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
--- NOTE | 2023-10-25 15:36 | CMPROGNOTE_ITS ---
Date of service: 10/25/23 Time of Service: 15:40 Care Management Progress Note Progress Note Text Progress Note Text: CM was consulted by ED to meet with Dante and discuss outpatient resources, specifically to review the process of changing his PCP. Dante was dressed, waiting for discharge paperwork, sitting outside of zone B when CM met with him. He was pleasant and engaged well in conversation. His mother was near him, and also engaged in conversation; she appeared supportive, and was present to drive him home. Dante stated that he is looking for a new PCP, and is unsure if he would like to stay in the same office vs change offices. He stated that he wants to have his PCP within the [facility] network. He expressed concern about how people view him, as he has had some negative interactions at the pulmonary clinic as well as at [facility]. CM asked if he is connected to a therapist who he can talk to about his situation; he stated that he is looking to be connected, but does not currently have a therapist. He also stated that he is looking for employment, and has worked with [employer] recently. CM reviewed the process to change his PCP. He was not able to identify which practice he would like to choose. CM sent a referral to [facility] to continue to s upport him in the community with changing his PCP, connecting with a therapist, and reconnecting with [employer] for employment/disability support. SDOH(Care Management) Screening Will the Patient Participate in the Screening?: Unable to obtain
== END 2023-10-25 14:28 | disposition home or self-care (01) ==
PROVIDERS: Emergency Medicine; Emergency Provider Student in an Organized Health Care Education/Training Program; PCP Physician Assistant
DX: F41.9 Anxiety disorder, unspecified (principal); F29 Unspecified psychosis not due to a substance or known physiological condition; F22 Delusional disorders; F10.21 Alcohol dependence, in remission; F17.210 Nicotine dependence, cigarettes, uncomplicated
CPT/HCPCS: 00123; 80307; 82962; 99285; 81003

== ENCOUNTER 2023-11-18 08:49 | Outpatient (REF) | payer MEDICAID, SELFPAY ==
[2023-11-18 16:39] LABS: Hemoglobin A1C 5.3 % (<5.7)
[2023-11-18 16:40] LABS: ALT 93 U/L (16-63); AST 34 U/L (15-37); Albumin 3.7 g/dL (3.4-5.0); Alkaline Phosphatase 78 U/L (46-116); Anion Gap 10.5 mmol/L (3-11); BUN 8 mg/dL (7-18); Bilirubin, Total 0.4 mg/dL (0.2-1.0); CO2 28.5 mmol/L (21.0-32.0); CREATININE 0.6 mg/dL (0.70-1.30); Calcium 8.8 mg/dL (8.5-10.1); Calculated LDL 70 mg/dL (<100); Chloride 103 mmol/L (98-107); Cholesterol 125 mg/dL (<200); Estimated GFR 122.83 (mL/min/1.73m2); Glucose 113 mg/dL (74-106); HDL Cholesterol 44 mg/dL (40-60); Potassium 4.1 mmol/L (3.5-5.1); Sodium 142 mmol/L (136-145); Total Protein 6.5 g/dL (6.4-8.2); Triglyceride 57 mg/dL (<150)
[2023-11-18 22:57] LABS: HIV-1/2 Ag & Ab Screen Negative (Negative)
[2023-11-18 23:01] LABS: Hepatitis C Ab w Rflx HCV PCR Negative (Negative)
[2023-11-19 11:39] LABS: Syphilis Serology (RPR) Negative (Negative)
[2023-11-19 12:28] LABS: Chlamydia Result Negative (Negative); GC Result Negative (Negative)
== END 2023-11-18 08:50 | disposition home or self-care (01) ==
LOC: NCHCN 08:49
PROVIDERS: PCP Physician Assistant; Visit Provider Physician Assistant
DX: R73.03 Prediabetes (principal); R79.89 Other specified abnormal findings of blood chemistry; Z11.4 Encounter for screening for human immunodeficiency virus [HIV]; Z11.3 Encounter for screening for infections with a predominantly sexual mode of transmission; Z11.59 Encounter for screening for other viral diseases
CPT/HCPCS: 80053; 80061; 86803; 87389; 87491; 87591; 83036; 86592

== ENCOUNTER 2024-04-25 09:13 | Outpatient (REF) | payer MEDICAID, SELFPAY | END 2024-04-25 09:14 | LOC: LBN 09:13 | PROVIDERS: PCP Family Medicine; Visit Provider Physician Assistant Medical | DX: J02.9 Acute pharyngitis, unspecified (principal) | CPT/HCPCS: 87070 ==

== ENCOUNTER 2024-05-01 09:47 | Outpatient (REF) | payer MEDICAID, SELFPAY ==
[2024-05-01 14:44] LABS: ALT 71 U/L (16-63); AST 23 U/L (15-37); Albumin 3.3 g/dL (3.4-5.0); Alkaline Phosphatase 118 U/L (46-116); Anion Gap 4.9 mmol/L (3-11); BUN 15 mg/dL (7-18); Bilirubin, Total 0.46 mg/dL (0.2-1.0); CO2 32.1 mmol/L (21.0-32.0); CREATININE 0.6 mg/dL (0.70-1.30); Calcium 9.4 mg/dL (8.5-10.1); Chloride 103 mmol/L (98-107); Estimated GFR 122.07 (mL/min/1.73m2); Glucose 136 mg/dL (74-106); Hemoglobin A1C 6.2 % (<5.7); Potassium 4.7 mmol/L (3.5-5.1); Sodium 140 mmol/L (136-145); Total Protein 6.6 g/dL (6.4-8.2)
== END 2024-05-01 09:48 | disposition home or self-care (01) ==
LOC: NCHCN 09:47
PROVIDERS: PCP Family Medicine; Visit Provider Family Medicine
DX: R74.01 Elevation of levels of liver transaminase levels (principal); R73.03 Prediabetes
CPT/HCPCS: 80053; 83036

== ENCOUNTER 2024-11-23 12:59 | Outpatient (REF) | payer MEDICAID, SELFPAY ==
[2024-11-23 15:22] LABS: Abs Immature Grans 0.02 10^3/uL (0.0-0.06); Absolute Basophil Count 0.06 10^3/uL (0.0-0.2); Absolute Eosinophil Count 0.15 10^3/uL (0.0-0.7); Absolute Lymphocyte Count 1.46 10^3/uL (1.2-3.4); Absolute Monocyte Count 0.48 10^3/uL (0.1-0.8); Absolute Neutrophil Count 4.56 10^3/uL (1.2-6.7); Basophils % 0.9 %; Eosinophils % 2.2 %; HCT 51.1 % (40.0-50.0); HGB 17.5 g/dL (13.5-17.5); Immature Grans % 0.3 %; Lymphocytes % 21.7 %; MCH 29.6 pg (27.0-33.0); MCHC 34.2 % (32.0-36.0); MCV 87 fL (80-95); Monocytes % 7.1 %; Neutrophils % 67.8 %; RBC 5.91 10^6/uL (4.36-5.78); RDW 12.9 % (11.8-14.1); RDW-SD 40.7 fL; WBC 6.73 10^3/uL (4.4-10.8)
[2024-11-23 15:41] LABS: Diff Comment PLT Morph Reviewed; RBC Morphology Normal
[2024-11-23 15:45] LABS: ALT 125 U/L (16-63); AST 42 U/L (15-37); Albumin 3.7 g/dL (3.4-5.0); Alkaline Phosphatase 157 U/L (46-116); Anion Gap 7.8 mmol/L (3-11); BUN 10 mg/dL (7-18); Bilirubin, Total 0.6 mg/dL (0.2-1.0); CO2 30.2 mmol/L (21.0-32.0); CREATININE 0.5 mg/dL (0.70-1.30); Calculated LDL 90 mg/dL (<100); Chloride 99 mmol/L (98-107); Cholesterol 166 mg/dL (<200); Estimated GFR 128.98 (mL/min/1.73m2); Glucose 316 mg/dL (74-106); HDL Cholesterol 38 mg/dL (>or=40); Magnesium 1.8 mg/dL (1.8-2.4); Potassium 4.2 mmol/L (3.5-5.1); Sodium 137 mmol/L (136-145); Total Protein 6.6 g/dL (6.4-8.2); Triglyceride 191 mg/dL (<150)
[2024-11-23 16:16] LABS: COMMENT (LAB VIEW ONLY) 30.83 mg/dL; Microalb ug/mg Crea 9.4 ug/mg Cr
[2024-11-23 16:32] LABS: Hemoglobin A1C 12.5 % (<5.7)
== END 2024-11-23 13:00 | disposition home or self-care (01) ==
LOC: NCHCN 12:59
PROVIDERS: PCP Family Medicine; Visit Provider Family Medicine
DX: E11.9 Type 2 diabetes mellitus without complications (principal); R74.01 Elevation of levels of liver transaminase levels
CPT/HCPCS: 80053; 80061; 82043; 82570; 83036; 83735; 85025

== ENCOUNTER 2024-11-30 02:13 | Outpatient (CLI) | payer MEDICAID, SELFPAY ==
--- NOTE | 2024-11-30 07:10 | DI.US_ITS ---
Exam(s) US ABDOMEN LIMITED EXAM: US ABDOMEN LIMITED CLINICAL HISTORY: Elevation of liver transaminase levels R74.01 Level above reference range TECHNIQUE: Ultrasound abdomen performed using standard protocol. COMPARISON: No exams were available for comparison FINDINGS: LIVER: Mildly enlarged at 18.4 cm. Increased echogenicity and decreased through transmission consistent with moderate to severe hepatic steatosis. Posterior portions of the liver are not well visualized. No focal liver lesions are seen.. GALLBLADDER: No evidence of cholelithiasis. No evidence of wall thickening. No pericholecystic fluid identified. TIERNEY'S SIGN: Negative. BILIARY SYSTEM: No intrahepatic or extrahepatic biliary ductal dilation. RIGHT KIDNEY: Normal size. No evidence of renal calculi. No evidence of hydronephrosis. No suspicious renal mass. No cyst identified. PANCREAS: Normal where visualized. ABDOMINAL AORTA AND IVC: Visualized portions normal caliber. ASCITES: None seen. IMPRESSION: Mildly enlarged liver with moderate to severe hepatic steatosis. DATA REPOSITORY:
== END 2024-11-30 02:33 ==
PROVIDERS: PCP Family Medicine; Visit Provider Family Medicine
DX: R74.01 Elevation of levels of liver transaminase levels (principal); K76.0 Fatty (change of) liver, not elsewhere classified
CPT/HCPCS: 76705